=== PATIENT | male | born 1960 | race Caucasian/White ===

== ENCOUNTER 2017-05-24 08:25 | Day surgery (SDC) | payer OTHER, BC, SELFPAY | END 2017-05-24 11:05 | disposition home or self-care (01) | PROVIDERS: Visit Provider Anesthesiology | DX: M51.16 Intervertebral disc disorders with radiculopathy, lumbar region (principal); M43.22 Fusion of spine, cervical region | CPT/HCPCS: 62326; 80305; 95851 ==

== ENCOUNTER → 2017-05-29 | Outpatient (POV) | payer OTHER, BC, SELFPAY | PROVIDERS: Family Provider Nurse Practitioner Family; Visit Provider Surgery | DX: M51.36 Other intervertebral disc degeneration, lumbar region (principal); Z98.1 Arthrodesis status | CPT/HCPCS: 99201 ==

== ENCOUNTER → 2017-09-03 | Outpatient (CLI) | payer OTHER, SELFPAY | PROVIDERS: Visit Provider Anesthesiology | DX: Z01.818 Encounter for other preprocedural examination; M54.16 Radiculopathy, lumbar region | CPT/HCPCS: 36415; 80048; 85025 ==

== ENCOUNTER 2017-09-18 06:55 | Day surgery (SDC) | payer OTHER, SELFPAY | END 2017-09-18 11:18 | disposition home or self-care (01) | PROVIDERS: Family Provider Nurse Practitioner Family; Visit Provider Anesthesiology | DX: M51.16 Intervertebral disc disorders with radiculopathy, lumbar region; M51.36 Other intervertebral disc degeneration, lumbar region | CPT/HCPCS: 62350; 62362; 96365; C1755; C1772; J2704; J3370 ==

== ENCOUNTER → 2017-10-01 09:35 | Outpatient (POV) | payer OTHER, SELFPAY ==
[2017-10-01 10:04] VITALS: BP 170/100; PULSE 70; RESP 18; BMI 33.4
--- NOTE | 2017-10-01 10:20 | HMH.PMPROC ---
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 He had permanent placement of intrathecal pain pump 2 weeks ago. He was started at 0.1 mg per day of intrathecal Dilaudid. He is doing well with 80-90% relief of his pain symptoms. He has not been very active as of yet. We will initiate his PTC at 0.01 mg up to 4 times a day with a 6 hour lockout. I have also suggested that he continue wearing his back brace. He does have some urinary hesitancy. We will start him on Flomax 0.4 mg daily as needed to help with his urinary hesitancy. Procedure Details:: Informed consent was obtained and the risks and benefits of the procedure was explained to the patient. Patient was taken to the procedure room. Intrathecal pump was interrogated. Intrathecal Dilaudid infusion was continued at 0.1 mg per day with PTC initiated at 0.01 mg up to 4 times a day with a 6 hour lockout. Patient tolerated the procedure well with no complications. Plan and Disposition:: We will follow-up with this patient at his next pump refill. If he has any problems or questions he is to call me back in the pain clinic. We have also started him on Flomax 0.4 mg daily to help with his urinary hesitancy. We have given him a one-month prescription
== END ==
PROVIDERS: Family Provider Nurse Practitioner Family; Visit Provider Anesthesiology
DX: M54.16 Radiculopathy, lumbar region (principal)
CPT/HCPCS: 95991; 99212

== ENCOUNTER → 2017-10-28 11:23 | Outpatient (POV) | payer OTHER, SELFPAY ==
[2017-10-28 11:52] VITALS: BP 175/106; PULSE 74; RESP 20; TEMP 36.3; O2SAT 96; BMI 34.9
--- NOTE | 2017-10-28 12:02 | HMH.PMPROC ---
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 He is doing well with his intrathecal Dilaudid pain pump currently at 0.1 mg per day. Patient does give himself a bolus before going to bed. He does have some issues at night with increased pain at 2 to 3:00 in the morning when he has increasing pain in his back and down his left leg. He does get up and uses PTC which does give him relief. However, he would like to have an automatic bolus so he does not have to be woken up in the middle of the night with pain. We will adjust his programming to continue at 0.1 mg per day with automatic boluses of 0.01 mg at 7 PM and at 2 AM. Procedure Details:: Informed consent was obtained and the risk effects of the procedure was explained to the patient. The patient was taken to the procedure room. Intrathecal Dilaudid pump was interrogated and the infusion remained at 0.1 mg per day with automatic bolus of 0.01 mg at 7 PM and at 2 AM. PTC was disabled. The patient tolerated the procedure well with no complications. Plan and Disposition:: We will follow-up with him in 2 weeks and make further adjustments as needed.
== END ==
PROVIDERS: Visit Provider Anesthesiology
DX: M54.16 Radiculopathy, lumbar region (principal)
CPT/HCPCS: 95991

== ENCOUNTER → 2017-12-16 09:04 | Outpatient (POV) | payer OTHER, SELFPAY ==
[2017-12-16 09:17] VITALS: BP 177/117; PULSE 58; RESP 17; O2SAT 98; BMI 34.9
--- NOTE | 2017-12-16 09:27 | HMH.PMPROC ---
- Procedure Date: 12/16/17 Time: 09:27 Anesthesiologist:: Pacheco Boyle MD Complications:: None Pre-procedure Diagnosis:: Degenerative disc disease of lumbar spine multiple levels lumbar radiculopathy symptoms and postlaminectomy syndrome of the cervical spine with anterior cervical neck fusion Post-procedure Diagnosis:: Same Indications for Procedure:: This patient is a pleasant 56-year-old white male who we are treating for low back pain with lumbar radiculopathy symptoms and neck pain with previous anterior cervical neck fusion. He is doing well with his intrathecal Dilaudid pain pump currently at 0.12 mg per day. However he does still have some increased pain at night. He would like to increase his boluses at night. He currently gets boluses of 0.01 mg at 7 PM and at 2 AM. We will increase his to 0.02 mg at 7 PM and 2 AM to see if this gives him additional pain relief. We have disabled his PTC. Procedure Details:: Informed consent was obtained and the risk and benefits of the procedure was explained to the patient. Patient was taken to the procedure room. Pump was interrogated. Boluses were increased to 0.02 g at 7 PM and at 2 AM. Total daily dose dose is increased to 0.14 mg per day. Patient tolerated the procedure well with no complications. Plan and Disposition:: We will follow-up with him at his next pump refill. If he has any problems or questions he is to call me back in the pain clinic.
== END ==
PROVIDERS: Family Provider Nurse Practitioner Family; Visit Provider Anesthesiology
DX: M47.816 Spondylosis without myelopathy or radiculopathy, lumbar region (principal)
CPT/HCPCS: 62370

== ENCOUNTER → 2018-02-28 09:50 | Outpatient (POV) | payer OTHER, SELFPAY ==
[2018-02-28 10:00] VITALS: BP 146/86; PULSE 58; RESP 18; TEMP 37.1; O2SAT 98; BMI 34.4
--- NOTE | 2018-02-28 10:24 | HMH.PMPROC ---
- Procedure Date: 02/28/18 Time: 10:24 Anesthesiologist:: Pacheco Boyle MD Complications:: None Pre-procedure Diagnosis:: Degenerative disc disease of lumbar spine with lumbar radiculopathy symptoms Post-procedure Diagnosis:: Same Indications for Procedure:: This patient is a pleasant 57-year-old white male who we are treating for low back pain with lumbar radiculopathy symptoms. He is doing well with his current intrathecal Dilaudid infusion. He does have some increased pain with increased activity. We will make adjustments to his infusion today to give him better pain relief throughout the day when he is more active. He does have a normal gait. Motor strength of the lower extremities is 5/5. There is no gross sensory deficit. Procedure Details:: Procedure: Pain pump interrogation and adjustment Informed consent was obtained and the risk and benefits of the procedure was explained to the patient. Patient was taken to the procedure room. The pump was interrogated. Patient's bolus during the day was increased to 0.1 mg. This increased his total daily dose to 0.17 mg per day. Patient now gets a bolus of 0.02 mg at 7 PM, 0.03 mg from 7 PM to 2 AM, 0.02 mg at 2 AM, 0.1 mg from 2 AM to 7 PM with total daily dose of 0.17 mg per day. patient tolerated the procedure well with no complications. Plan and Disposition:: We will follow-up with this patient in 2 weeks. We will reevaluate his symptoms at that time.
== END ==
PROVIDERS: Family Provider Nurse Practitioner Family; PCP Nurse Practitioner Family; Visit Provider Anesthesiology
DX: M54.16 Radiculopathy, lumbar region (principal)
CPT/HCPCS: 62370

== ENCOUNTER → 2018-09-01 14:58 | Outpatient (POV) | payer OTHER, SELFPAY ==
[2018-09-01 15:29] VITALS: BP 180/99; PULSE 77; RESP 18; O2SAT 99; BMI 34.2
--- NOTE | 2018-09-01 15:49 | HMH.PMPROC ---
- Procedure Date: 09/01/18 Time: 15:30 Anesthesiologist:: Devora Villeda APRN Complications:: None Pre-procedure Diagnosis:: Degenerative disc disease lumbar spine with lumbar radiculopathy Post-procedure Diagnosis:: Same Indications for Procedure:: Patient is a pleasant 57-year-old white male who presents today for intrathecal pain pump adjustment. Patient is currently on a Dilaudid infusion of going at a total daily dose of 0.17 mg/day. Patient's been having worsening pain rating his pain a 7 out of 10 today. Patient has recent MRI however he did not bring the report with us he will be returning to our clinic with this. We will change him to a periodic flow today. He denies side effects to his medication. Physical Exam General: Alert and oriented x3, no acute distress, pleasant and cooperative, [on room air] Lungs: Resps E/U, Symmetrical chest expansion, Eyes: PERRL Musculoskeletal: Flexion and extension of lumbar spine somewhat guarded secondary to pain, deep tendon reflexes normal, strength in upper and lower extremities [5/5], [abnormal gait noted] Neurological: speech clear, automatic lathe operator equal, no gross sensory deficits Procedure Details:: Informed consent was obtained and the risk and benefits of the procedure were explained to the patient. The patient was taken to the procedure room where noninvasive monitoring was placed including noninvasive blood pressure cuff and pulse oximeter. Patient's pump was interrogated. The infusion rate was changed to 0.02 every 2 hours for total daily dose of 0.24 mg a day.. The patient tolerated the procedure well. Plan and Disposition:: I will see the patient back at his next intrathecal pain pump refill and reprogram. Patient's been instructed to call the office if he has any issues prior to his next appointment. Patient is going to come to our offering his MRI report at some time this week. This note was dictated using voice recognition software and may contain errors or omissions
== END ==
PROVIDERS: PCP Internal Medicine Adolescent Medicine; Visit Provider Clinical Nurse Specialist Family Health
DX: M54.16 Radiculopathy, lumbar region (principal)
CPT/HCPCS: 62368

== ENCOUNTER → 2018-10-23 07:10 | Outpatient (CLI) | payer BC, SELFPAY ==
--- NOTE | 2018-10-23 07:30 | NM_ITS ---
History and Indications: Hypertension, family history, chest pain, shortness of breath and fatigue Procedure: Patient received a 0.4 mg of intravenous Lexiscan, resting heart rate was 65 bpm resting blood pressure 156/110, with intravenous Lexiscan maximum heart rate achieved was 93 bpm which is less than 85% of the maximum predicted heart rate and a blood pressure was 137/82. With Lexiscan patient complained shortness of breath Electrocardiogram: Resting echocardiogram showed sinus rhythm, with Lexiscan less than 1.[address] segment depression noted from the baseline EKG. The EKG portion of the Lexiscan Myoview is nondiagnostic. Cardiac stress and resting SPECT images: Cardiac stress and resting SPECT images were obtained using technetium 99 Myoview 32.0 mCi at stress and 10.2 mCi at rest, gated SPECT further analysis of segmental wall motion and calculation of the ejection fraction also done. Cardiac stress and resting SPECT images show uniform myocardial activity without segmental perfusion abnormality, computer derived ejection fraction is 58% with no regional wall motion abnormality, right ventricle is normal size and contractility. Conclusion: 1. The EKG portion of the Lexiscan Myoview is nondiagnostic. 2. No scintigraphic evidence of reversible ischemia seen, computer derived ejection fraction is 58% with no regional wall motion abnormality, right ventricle is normal size and contractility. 3. Normal Lexiscan Myoview study.
--- NOTE | 2018-10-23 09:54 | HMH.ITSHM ---
Current Home Medications as stated by this patient Luisa Serna or patient care representative. []hctz
== END ==
PROVIDERS: PCP Internal Medicine Adolescent Medicine; Visit Provider Internal Medicine Adolescent Medicine
DX: R06.00 Dyspnea, unspecified (principal)
CPT/HCPCS: 78452; 93017; A9502; J2785

== ENCOUNTER → 2018-10-31 10:06 | Outpatient (CLI) | payer BC, SELFPAY ==
--- NOTE | 2018-10-31 10:20 | XR_ITS ---
XR chest 2V HISTORY: Short of breath ITS.REASON: SOB ORDERING PHYSICIAN: Yo Staples MD PATIENT AGE: 58 years COMPARISON: None FINDINGS: The cardiomediastinal silhouette and pulmonary vascularity are within normal limits. The lungs are clear without infiltrates, suspicious nodules, or pleural effusions. No acute bony abnormalities. There is a bone plate along the lower cervical spine anteriorly IMPRESSION: Negative chest, no acute finding
== END ==
PROVIDERS: PCP Internal Medicine Adolescent Medicine; Visit Provider Internal Medicine Adolescent Medicine
DX: R06.02 Shortness of breath (principal)
CPT/HCPCS: 71046

== ENCOUNTER → 2018-11-28 09:46 | Outpatient (CLI) | payer BC, SELFPAY ==
[2018-11-28 10:23] LABS: Basophils # 0.1 K/mm3 (0-0.2); Basophils % 1.5 % (0.1-2.0); Eosinophils # 0.2 K/mm3 (0.0-0.4); Eosinophils % 2.5 % (0.1-12.0); Hemoglobin 15.9 g/dL (14.1-18.0); Lymphocytes # 1.6 K/mm3 (0.7-4.5); Lymphocytes % 21.5 % (10-50); Mean Corpuscular HGB Conc 31.8 g/dL (31.8-35.4); Mean Corpuscular Hemoglobin 28.6 pg (27.0-31.2); Mean Corpuscular Volume 89.9 fl (80-94); Mean Platelet Volume 8.2 fl (7.4-10.4); Monocytes # 0.3 K/mm3 (0.1-1.0); Monocytes % 4.5 % (1.7-9.3); Neutrophils # 5.1 K/mm3 (1.8-7.8); Platelet Count 238 K/mm3 (142-424); Red Blood Count 5.55 M/mm3 (4.60-6.20); Red Cell Distribution Width 13.7 % (11.5-17.5); White Blood Count 7.2 K/mm3 (4.8-10.8)
[2018-11-28 11:27] LABS: Anion Gap 11.9 mEq/L (5-15); Blood Urea Nitrogen 22 mg/dL (7-18); Calcium 9.5 mg/dL (8.5-10.1); Carbon Dioxide 30 mmol/L (21.0-32.0); Chloride 99 mmol/L (98-107); Creatinine,Serum 1.27 mg/dL (0.70-1.30); Estimated Glomerular Filt Rate 59 ml/min (>60); Free Thyroxine Index 3.2 ug/dL (5.93-13.13); GFR (African American) 71 ML/MIN (>60); Glucose 105 mg/dL (74-106); Potassium 3.9 mmoL/L (3.5-5.1); Sodium 137 mmol/L (136-145); T4 (Thyroxine) 7.6 ug/dl (4.7-13.3); Thyroid Stimulating Hormone 1.25 uIU/ml (0.358-3.740); Triiodothryronine (T3) Uptake 42 % (31-39)
[2018-12-01 13:23] LABS: Thyroid Peroxidase Antibodies 8 IU/mL (0-34)
== END ==
PROVIDERS: Visit Provider Internal Medicine Adolescent Medicine
DX: R53.83 Other fatigue (principal); R53.81 Other malaise; Z83.49 Family history of other endocrine, nutritional and metabolic diseases
CPT/HCPCS: 36415; 80048; 84436; 84443; 84479; 85025; 86376

== ENCOUNTER 2019-03-03 13:41 | Day surgery (SDC) | payer OTHER, BC, SELFPAY ==
[2019-03-03 13:43] VITALS: BP 140/93; PULSE 68; RESP 18; O2SAT 97; BMI 34.1
[2019-03-03 13:52] VITALS: BP 140/95; PULSE 68; RESP 18
[2019-03-03 13:55] VITALS: BP 140/93; PULSE 68; RESP 18; O2SAT 97; BMI 34.1
[2019-03-03 13:56] VITALS: BP 142/98; PULSE 68; RESP 18; O2SAT 98
--- NOTE | 2019-03-03 14:01 | HMH.PMPROC ---
- Procedure Date: 03/03/19 Time: 14:01 Anesthesiologist:: Devora Villeda APRN Complications:: None Pre-procedure Diagnosis:: Degenerative disc disease lumbar spine with lumbar radiculopathy Post-procedure Diagnosis:: Same Indications for Procedure:: Patient is a pleasant 58-year-old white male who presents today for intrathecal pain pump refill and reprogram. Patient is having increased pain. Patient is currently on a Dilaudid dose of 0.03 mg every 2 hours. Patient is having increased pain rating his pain 8 out of 10. Patient is having a consultation with a neurosurgeon. Patient would like a slight increase today T. He denies side effects to his medication. [facility] #[id number] reviewed and appropriate. Physical Exam General: Alert and oriented x3, no acute distress, pleasant and cooperative, [on room air] Lungs: Resps E/U, Symmetrical chest expansion, Eyes: PERRL Musculoskeletal: Flexion and extension of lumbar spine somewhat guarded secondary to pain, deep tendon reflexes normal, strength in upper and lower extremities [5/5], [abnormal gait noted] Neurological: speech clear, endoscopy technican equal, no gross sensory deficits Procedure Details:: Informed consent was obtained and the risk and benefits of the procedure were explained to the patient. The patient was taken to the procedure room where noninvasive monitoring was placed including noninvasive blood pressure cuff and pulse oximeter. Patient's pump was interrogated. The area over the pump was cleansed with chlorhexidine as a cleansing solution. In sterile fashion the pump was accessed with a 22-gauge needle. Approximately 4 mL's were removed of the pump solution and discarded appropriately. The pump was then refilled with 20 mL's of Dilaudid 2 mg/mL. The needle was withdrawn and a bandage was placed over the puncture site. The infusion rate was reprogrammed to 0.042 mg every 2 hours. The patient tolerated the procedure well. Plan and Disposition:: I will see the patient back his next intrathecal pain pump refill and reprogram he is been instructed to call the office if he has any issues prior to his next appointment. We discussed that his surgeon will take care of his acute pain needs and we will continue him on his intrathecal therapies. Dr. Boyle has reviewed this note and agrees with this plan of care. This note was dictated using voice recognition software and may contain errors or omissions
[2019-03-03 14:18] VITALS: BP 129/90; PULSE 65; RESP 18; O2SAT 97
== END 2019-03-03 14:19 | disposition home or self-care (01) ==
LOC: SC.PAINP 13:42
PROVIDERS: PCP Internal Medicine Adolescent Medicine; Visit Provider Clinical Nurse Specialist Family Health
DX: M54.16 Radiculopathy, lumbar region (principal)
CPT/HCPCS: 62370

== ENCOUNTER → 2019-03-11 09:32 | Outpatient (CLI) | payer BC, SELFPAY ==
[2019-03-11 10:19] LABS: Basophils # 0.1 K/mm3 (0-0.2); Basophils % 1.2 % (0.1-2.0); Eosinophils # 0.2 K/mm3 (0.0-0.4); Eosinophils % 2.7 % (0.1-12.0); Hematocrit 45.9 % (42.0-52.0); Hemoglobin 15.2 g/dL (14.1-18.0); Lymphocytes # 1.5 K/mm3 (0.7-4.5); Lymphocytes % 22.8 % (10-50); Mean Corpuscular HGB Conc 33.1 g/dL (31.8-35.4); Mean Corpuscular Hemoglobin 28.6 pg (27.0-31.2); Mean Corpuscular Volume 86.3 fl (80-94); Mean Platelet Volume 7.4 fl (7.4-10.4); Monocytes # 0.5 K/mm3 (0.1-1.0); Monocytes % 7.2 % (1.7-9.3); Neutrophils # 4.3 K/mm3 (1.8-7.8); Neutrophils % 66.1 % (37.0-80.0); Platelet Count 247 K/mm3 (142-424); Red Blood Count 5.32 M/mm3 (4.60-6.20); Red Cell Distribution Width 13.5 % (11.5-17.5); White Blood Count 6.6 K/mm3 (4.8-10.8)
[2019-03-11 11:12] LABS: Alanine Aminotransferase 49 U/L (12-78); Albumin Level 3.8 gm/dL (3.4-5.0); Albumin/Globulin Ratio 1.1 (1.1-1.8); Alkaline Phosphatase 104 U/L (46-116); Anion Gap 14.2 mEq/L (5-15); Aspartate Amino Transferase 23 U/L (15-37); Bilirubin,Total 0.7 mg/dL (0.2-1.0); Blood Urea Nitrogen 19 mg/dL (7-18); Calcium 9.5 mg/dL (8.5-10.1); Carbon Dioxide 27 mmol/L (21.0-32.0); Chloride 100 mmol/L (98-107); Cholesterol 238 mg/dL (140-200); Creatinine,Serum 1.11 mg/dL (0.70-1.30); Estimated Glomerular Filt Rate 69 ml/min (>60); GFR (African American) 83 ML/MIN (>60); Globulin 3.6 gm/dl (1.3-3.2); Glucose 103 mg/dL (74-106); HDL Cholesterol 48 mg/dL (27-67); LDL Cholesterol 177 mg/dL (0-130); Potassium 4.2 mmoL/L (3.5-5.1); Sodium 137 mmol/L (136-145); Total Protein,Serum 7.4 gm/dL (6.4-8.2); Triglycerides 65 mg/dL (30-200); VLDL Cholesterol 13 mg/dL (0-40)
[2019-03-11 11:14] LABS: Prostate Specific Ag, Diagnost < 0.05 ng/mL (0.0-4.0)
== END ==
PROVIDERS: Visit Provider Internal Medicine Adolescent Medicine
DX: Z86.39 Personal history of other endocrine, nutritional and metabolic disease (principal); Z85.46 Personal history of malignant neoplasm of prostate
CPT/HCPCS: 36415; 80053; 80061; 84153; 85025

== ENCOUNTER → 2019-05-05 16:03 | Outpatient (CLI) | payer BC, OTHER, SELFPAY ==
[2019-05-05 16:59] LABS: Amphetamine/Metha Screen,Urine Negative ng/mL (<1000); Barbiturates Screen,Urine Negative ng/mL (<200); Benzodiazepines Screen,Urine Negative ng/mL (<200); Cannabinoid Screen,Urine Negative ng/mL (<50); Cocaine Screen,Urine Negative ng/mL (<300); Methadone Screen,Urine Negative ng/mL (<300); Opiate Screen,Urine Negative ng/mL (<300); Phencyclidine Screen,Urine Negative ng/mL (<25)
[2019-05-10 19:15] LABS: Codeine Negative (Cutoff=100); Hydrocodone Negative (Cutoff=100); Hydromorphone Positive (.); Morphine Negative (Cutoff=100)
[2019-05-11 10:33] LABS: Opiates Positive (.)
== END ==
PROVIDERS: Visit Provider Anesthesiology
DX: Z79.899 Other long term (current) drug therapy (principal)
CPT/HCPCS: 80305; 80361; 80365; G0480

== ENCOUNTER → 2019-06-19 09:47 | Outpatient (CLI) | payer BC, SELFPAY ==
[2019-06-19 11:13] LABS: Alanine Aminotransferase 61 U/L (12-78); Albumin Level 3.7 gm/dL (3.4-5.0); Albumin/Globulin Ratio 1.1 (1.1-1.8); Alkaline Phosphatase 87 U/L (46-116); Anion Gap 13.5 mEq/L (5-15); Aspartate Amino Transferase 30 U/L (15-37); Bilirubin,Total 0.5 mg/dL (0.2-1.0); Blood Urea Nitrogen 15 mg/dL (7-18); Calcium 9.2 mg/dL (8.5-10.1); Carbon Dioxide 28 mmol/L (21.0-32.0); Chloride 101 mmol/L (98-107); Chol/HDL Ratio 3.4 (1-3.5); Cholesterol 161 mg/dL (140-200); Creatinine,Serum 1.12 mg/dL (0.70-1.30); Estimated Glomerular Filt Rate 68 ml/min (>60); GFR (African American) 82 ML/MIN (>60); Globulin 3.5 gm/dl (1.3-3.2); Glucose 95 mg/dL (74-106); HDL Cholesterol 48 mg/dL (27-67); LDL Cholesterol 102 mg/dL (0-130); Potassium 4.5 mmoL/L (3.5-5.1); Sodium 138 mmol/L (136-145); Total Protein,Serum 7.2 gm/dL (6.4-8.2); Triglycerides 54 mg/dL (30-200); VLDL Cholesterol 11 mg/dL (0-40)
== END ==
PROVIDERS: Visit Provider Internal Medicine Adolescent Medicine
DX: Z86.39 Personal history of other endocrine, nutritional and metabolic disease (principal)
CPT/HCPCS: 36415; 80053; 80061

== ENCOUNTER → 2019-12-21 13:45 | Outpatient (POV) | payer OTHER, SELFPAY ==
[2019-12-21 14:04] VITALS: BP 171/98; PULSE 77; RESP 18; O2SAT 98; BMI 30.4
--- NOTE | 2019-12-21 14:08 | HMH.PMPROC ---
- Procedure Date: 12/21/19 Time: 14:08 Anesthesiologist:: Devora Villeda APRN Complications:: None Pre-procedure Diagnosis:: Degenerative disc disease lumbar spine with lumbar postlaminectomy syndrome Post-procedure Diagnosis:: Same Indications for Procedure:: Patient is a pleasant 59-year-old white male who presents today for intrathecal pain pump adjustment. Patient is having increased pain. Our original plan was to wean him down however he has having new pain. Patient states that he does well with bracing. We discussed potentially needing to tighten and increase his strength in his core. He is healing from surgery. He rates his pain today a 5 out of 10. Physical Exam General: Alert and oriented x3, no acute distress, pleasant and cooperative, [on room air] Lungs: Resps E/U, Symmetrical chest expansion, Eyes: PERRL Musculoskeletal: Flexion and extension of lumbar spine somewhat guarded secondary to pain, deep tendon reflexes normal, strength in upper and lower extremities [5/5], slightly antalgic gait noted Neurological: speech clear, recruiter manager equal, no gross sensory deficits Procedure Details:: Informed consent was obtained and the risk and benefits of the procedure were explained to the patient. The patient was taken to the procedure room where noninvasive monitoring was placed including noninvasive blood pressure cuff and pulse oximeter. Patient's pump was interrogated and reprogrammed. The infusion rate was increased to 0.08 mg of Dilaudid every 2 hours for total daily dose of 0.96 mg/day.. The patient tolerated the procedure well. Plan and Disposition:: Send the patient to physical therapy. I will see him back at his next intrathecal pain pump refill and reprogram. He is been instructed to call the office if he has any issues prior to his next appointment. Dr. Boyle has reviewed this note and agrees with this plan of care. This note was dictated using voice recognition software and may contain errors or omissions
== END ==
PROVIDERS: PCP Internal Medicine Adolescent Medicine; Visit Provider Clinical Nurse Specialist Family Health
DX: M51.36 Other intervertebral disc degeneration, lumbar region (principal); M96.1 Postlaminectomy syndrome, not elsewhere classified
CPT/HCPCS: 62368

== ENCOUNTER 2020-03-07 14:00 | Outpatient (RCR) | payer OTHER, SELFPAY ==
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
== END 2020-03-07 14:05 | disposition home or self-care (01) ==
LOC: PT 14:00
PROVIDERS: Visit Provider Anesthesiology
DX: M54.5 Low back pain (principal)
CPT/HCPCS: 97010; 97014; 97110; 97163; 97535; 97760; G0283

== ENCOUNTER 2020-03-25 14:51 | Day surgery (SDC) | payer OTHER, SELFPAY ==
[2020-03-25 15:46] VITALS: BP 160/101; PULSE 67; RESP 20; TEMP 37; O2SAT 96; BMI 31.4
[2020-03-25 15:59] VITALS: BP 135/89; PULSE 70; RESP 18; O2SAT 98
[2020-03-25 16:05] VITALS: BP 179/85; PULSE 68; RESP 18; O2SAT 98
--- NOTE | 2020-03-25 16:11 | HMH.PMPROC ---
- Procedure Date: 03/25/20 Time: 16:11 Anesthesiologist:: Pacheco Boyle MD Complications:: None Pre-procedure Diagnosis:: Degenerative disc disease of lumbar spine with lumbar radiculopathy symptoms and postlaminectomy syndrome of lumbar spine Post-procedure Diagnosis:: Same Indications for Procedure:: This patient is a pleasant 59-year-old white male who we are treating for low back pain with lumbar radiculopathy symptoms. He does have an intrathecal Dilaudid pain pump in place. He is currently going 0.96 mg/day. He did previously have surgery. He is doing very well with his pump at this current dose. His Fazal and urine drug screen are all appropriate. We will refill his intrathecal Dilaudid pain pump today and continue him at 0.96 mg/day. He does have an antalgic gait. Motor strength of lower extremities is 5/5. There is no gross sensory deficit. Procedure Details:: Informed consent was obtained and the risks and benefits of the procedure was explained to the patient. The patient was taken to the procedure room. The pump was interrogated. The area over the pump was prepped using ChloraPrep. The pump was accessed with a 22-gauge needle. Approximately 15.5 mL's of the intrathecal solution was withdrawn and discarded. The pump was then refilled with 20 mL's of intrathecal Dilaudid 10 mg/mL. The pump was interrogated and the infusion was continued at 0.96 mg/day. The patient tolerated the procedure well with no complication. Plan and Disposition:: We will follow-up with him his next pump refill. If he has any problems or questions he is to call us back in the pain clinic.
[2020-03-25 16:14] VITALS: BP 156/104; PULSE 59; RESP 18; O2SAT 96
== END 2020-03-25 16:14 | disposition home or self-care (01) ==
LOC: SC.PAINP 14:53
PROVIDERS: PCP Internal Medicine Adolescent Medicine; Visit Provider Anesthesiology
DX: M51.16 Intervertebral disc disorders with radiculopathy, lumbar region (principal); M96.1 Postlaminectomy syndrome, not elsewhere classified; I10 Essential (primary) hypertension; E78.5 Hyperlipidemia, unspecified; Z86.73 Personal history of transient ischemic attack (TIA), and cerebral infarction without residual deficits; Z85.9 Personal history of malignant neoplasm, unspecified; Z90.49 Acquired absence of other specified parts of digestive tract; Z87.39 Personal history of other diseases of the musculoskeletal system and connective tissue; Z88.6 Allergy status to analgesic agent; Z88.1 Allergy status to other antibiotic agents; Z88.0 Allergy status to penicillin; Z79.899 Other long term (current) drug therapy
CPT/HCPCS: 95991

== ENCOUNTER → 2020-06-27 13:12 | Outpatient (CLI) | payer BC, SELFPAY ==
[2020-06-27 13:58] LABS: Basophils # 0.1 K/mm3 (0-0.2); Basophils % 0.8 % (0.1-2.0); Eosinophils # 0.2 K/mm3 (0.0-0.4); Eosinophils % 2.1 % (0.1-12.0); Hematocrit 47.8 % (42.0-52.0); Hemoglobin 15.5 g/dL (14.1-18.0); Lymphocytes # 1.9 K/mm3 (0.7-4.5); Lymphocytes % 16.7 % (10-50); Mean Corpuscular HGB Conc 32.5 g/dL (31.8-35.4); Mean Corpuscular Hemoglobin 29.4 pg (27.0-31.2); Mean Corpuscular Volume 90.4 fl (80-94); Mean Platelet Volume 7.9 fl (7.4-10.4); Monocytes # 0.5 K/mm3 (0.1-1.0); Monocytes % 4.4 % (1.7-9.3); Neutrophils # 8.6 K/mm3 (1.8-7.8); Neutrophils % 76.1 % (37.0-80.0); Platelet Count 246 K/mm3 (142-424); Red Blood Count 5.29 M/mm3 (4.60-6.20); Red Cell Distribution Width 13.7 % (11.5-17.5); White Blood Count 11.3 K/mm3 (4.8-10.8)
[2020-06-27 14:22] LABS: Chloride 100 mmol/L (98-107); Potassium 4.8 mmoL/L (3.5-5.1); Sodium 139 mmol/L (136-145)
[2020-06-27 14:24] LABS: Blood Urea Nitrogen 19 mg/dl (9-20); Estimated Glomerular Filt Rate 77 ml/min (>60); GFR (African American) 93 ML/MIN (>60)
[2020-06-27 14:25] LABS: Alanine Aminotransferase 79 U/L (12-78); Albumin Level 4.7 g/dl (3.5-5.0); Albumin/Globulin Ratio 1.4 (1.1-1.8); Alkaline Phosphatase 116 U/L (38-126); Anion Gap 16.8 mEq/L (5-15); Aspartate Amino Transferase 48 U/L (17-59); Bilirubin,Total 0.9 mg/dl (0.2-1.3); Calcium 10.1 mg/dl (8.4-10.2); Carbon Dioxide 27 mmol/L (22.0-30.0); Chol/HDL Ratio 3.7 (1-3.5); Cholesterol 230 mg/dl (140-200); Globulin 3.3 g/dL (1.3-3.2); Glucose 103 mg/dl (74-100); HDL Cholesterol 63 mg/dl (40-60); Triglycerides 93 mg/dl (30-150); VLDL Cholesterol 19 mg/dL (0-40)
[2020-06-27 14:35] LABS: Free T4 (Free Thyroxine) 1.37 ng/dl (0.78-2.19)
[2020-06-27 14:36] LABS: Direct LDL Cholesterol 151.65 mg/dL (100-129)
[2020-06-27 14:44] LABS: 25-OH Vitamin D, Total 45.6 ng/mL (30-100)
[2020-06-27 14:50] LABS: Thyroid Stimulating Hormone 1.28 uIU/mL (0.465-4.68)
[2020-06-27 17:28] LABS: Vitamin B12 383 pg/mL (239-931)
== END ==
PROVIDERS: Visit Provider Internal Medicine Adolescent Medicine
DX: R53.81 Other malaise (principal); E78.5 Hyperlipidemia, unspecified; E55.9 Vitamin D deficiency, unspecified; I10 Essential (primary) hypertension
CPT/HCPCS: 36415; 80053; 80061; 82306; 82607; 84439; 84443; 85025

== ENCOUNTER → 2020-07-02 10:23 | Outpatient (CLI) | payer BC, SELFPAY ==
[2020-07-02 12:56] LABS: Coronavirus 19 IgG Antibody Negative (Negative); Coronavirus 19 IgM Antibody Negative (Negative)
== END ==
PROVIDERS: Visit Provider Internal Medicine Gastroenterology
DX: Z01.89 Encounter for other specified special examinations (principal); Z12.11 Encounter for screening for malignant neoplasm of colon
CPT/HCPCS: 36415; 86328

== ENCOUNTER 2020-07-04 10:23 | Day surgery (SDC) | payer BC, SELFPAY ==
[2020-06-29 10:22] VITALS: BMI 31.3
[2020-07-04 11:05] VITALS: BP 167/104; PULSE 74; RESP 18; TEMP 36.1; O2SAT 97
[2020-07-04 12:11] VITALS: O2SAT 97
--- NOTE | 2020-07-04 12:40 | HMH.PROC ---
[facility] Procedure Note Procedure Note:: Colonoscopy Procedure Report: Colonoscopy Endoscopist: Hector Francois II, MD Referring physician: Yo Staples M.D. Date of Procedure: July 04, 2020 Equipment: Olympus 180 variable stiffness pediatric colonoscope Sedation: MAC sedation Indication: Mr. Serna is a 59-year-old gentleman who is here for screening/surveillance colonoscopy. He does state that he had a colonoscopy in 2002 and had colon polyps removed. He came back 1 year later and the colonoscopy was normal. His next (and last) colonoscopy in 2010 revealed normal colonoscopy. The patient reports no abdominal pain, weight loss, change in his bowel habits or rectal bleeding. He reports no family history of colon cancer. His recent CBC showed hemoglobin 15.5 and hematocrit 47.8. The patient does have a former history of prostate cancer with prostatectomy. Procedure: Prior to the procedure, a history and physical exam was performed, and patient's medications and allergies were reviewed. The risks, benefits and alternatives of the sedation and procedure were discussed with the patient. All questions were answered and informed consent was obtained. The patient was brought to the procedure room. Patient identification and proposed procedure were verified by the physician and the nurse. The patient was placed in a left lateral decubitus position and the scope was passed under direct vision. Throughout the procedure, the patient's blood pressure, pulse, and oxygen saturations were monitored continuously. The colonoscopy was accomplished without difficulty. The patient tolerated the procedure well. Findings: On digital rectal examination there was normal rectal tone. There were no external hemorrhoids. There was no palpable prostate. The colonoscope was introduced through the anal canal to the rectum and advanced to the cecum. The ileocecal valve and appendiceal orifice were identified. The scope was advanced a short distance into the ileum which appeared grossly normal. The scope was then withdrawn into the colon. The cecum, ascending and transverse colon and mucosa were grossly normal. There were scattered diverticuli throughout the descending and sigmoid colon (LEFT colon). The rectum itself was normal. Upon retroflexion within the rectum there were grade 1-2 internal hemorrhoids. The preparation was excellent throughout with [place] Preparation Score of 9. The cecal time was 10 minutes. Impression: 1. Left-sided diverticulosis 2. Grade 1 internal hemorrhoids Plan: The patient will not require screening/surveillance colonoscopy again for 10 years by ACS guidelines. I would encourage bulk fiber supplementation on a long-term daily maintenance basis.
[2020-07-04 12:45] VITALS: BP 176/95; PULSE 83; RESP 18; TEMP 36.7; O2SAT 92
[2020-07-04 12:55] VITALS: BP 158/100; PULSE 85; RESP 18; O2SAT 98
[2020-07-04 13:05] VITALS: BP 145/108; PULSE 63; RESP 18; O2SAT 98
[2020-07-04 13:25] VITALS: BP 160/98; PULSE 56; RESP 18; O2SAT 99
== END 2020-07-04 13:25 | disposition home or self-care (01) ==
LOC: OUTP 10:25
PROVIDERS: PCP Internal Medicine Adolescent Medicine; Visit Provider Internal Medicine Gastroenterology
PROC: 0DJD8ZZ Inspection of Lower Intestinal Tract, Via Natural or Artificial Opening Endoscopic (ICD-10-PCS; CPT 45378; principal; 2020-07-04 11:30)
DX: Z12.11 Encounter for screening for malignant neoplasm of colon (principal); K57.30 Diverticulosis of large intestine without perforation or abscess without bleeding; K64.0 First degree hemorrhoids; Z86.010 Personal history of colon polyps; Z85.46 Personal history of malignant neoplasm of prostate; Z90.79 Acquired absence of other genital organ(s); I10 Essential (primary) hypertension; G45.9 Transient cerebral ischemic attack, unspecified; Z87.39 Personal history of other diseases of the musculoskeletal system and connective tissue; Z79.899 Other long term (current) drug therapy; Z88.0 Allergy status to penicillin; Z88.1 Allergy status to other antibiotic agents
CPT/HCPCS: 45378

== ENCOUNTER 2020-09-05 13:15 | Day surgery (SDC) | payer OTHER, SELFPAY ==
[2020-09-05 13:16] VITALS: BP 199/123; PULSE 78; RESP 18; TEMP 36.7; O2SAT 98; BMI 38.0
--- NOTE | 2020-09-05 13:59 | P.PCN_ITS ---
- Procedure Date: 09/05/20 Time: 14:04 Anesthesiologist:: Devora Villeda APRN Complications:: None Pre-procedure Diagnosis:: Degenerative disc disease lumbar spine lumbar radiculopathy symptoms and postlaminectomy syndrome lumbar spine Post-procedure Diagnosis:: Same Indications for Procedure:: Patient is a pleasant 59-year-old white male who presents today for intrathecal pain pump refill and reprogram. Patient currently has a Dilaudid pain pump in place he is currently on 0.96 mg/day. Patient rates his pain today 2 out of 10 in his back and 8 out of 10 in his legs he is can be given a one-time bolus of 0.1 mg of Dilaudid to see if this helps with his legs. If it does we will switch him to periodic flow. Patient had a decrease in his pain from an 8/10 6 after his bolus. Patient's Fazal #[id number] reviewed and appropriate. Physical Exam General: Alert and oriented x3, no acute distress, pleasant and cooperative, [on room air] Lungs: Resps E/U, Symmetrical chest expansion, Eyes: PERRL Musculoskeletal: Flexion and extension of lumbar spine somewhat guarded secondary to pain, deep tendon reflexes normal, strength in upper and lower extremities [5/5], antalgic gait noted Neurological: speech clear, vp hr diversity equal, no gross sensory deficits Procedure Details:: Informed consent was obtained and the risk and benefits of the procedure were explained to the patient. The patient was taken to the procedure room where noninvasive monitoring was placed including noninvasive blood pressure cuff and pulse oximeter. Patient's pump was interrogated. The area over the pump was cleansed with chlorhexidine as a cleansing solution. In sterile fashion the pump was accessed with a 22-gauge needle. Approximately 4.5 mL's were removed of the pump solution and discarded appropriately. The pump was then refilled with 20 mL's of Dilaudid 10 mg/mL. The needle was withdrawn and a bandage was placed over the puncture site. The infusion rate was reprogrammed to reprogrammed to a periodic flow of 0.1 mg every 2 hours for total daily dose of 1.2 mg/day. The patient tolerated the procedure well. Plan and Disposition:: We will see the patient back at his next intrathecal pain pump refill and reprogram he has been instructed to call the office if he has any issues prior to his next appointment. Dr. Boyle has reviewed this note and agrees with this plan of care. This note was dictated using voice recognition software and may contain errors or omissions
[2020-09-05 14:01] VITALS: BP 185/79; PULSE 79; RESP 18
[2020-09-05 14:02] VITALS: BP 185/88; PULSE 75; RESP 18; O2SAT 98
[2020-09-05 14:32] VITALS: BP 182/101; PULSE 71; RESP 18; O2SAT 98
== END 2020-09-05 14:33 | disposition home or self-care (01) ==
LOC: SC.PAINP 13:16
PROVIDERS: PCP Internal Medicine Adolescent Medicine; Visit Provider Clinical Nurse Specialist Family Health
DX: M96.1 Postlaminectomy syndrome, not elsewhere classified (principal); Z88.0 Allergy status to penicillin; Z88.1 Allergy status to other antibiotic agents; I10 Essential (primary) hypertension; Z79.899 Other long term (current) drug therapy
CPT/HCPCS: 62370

== ENCOUNTER → 2020-12-08 08:30 | Outpatient (POV) | payer BC, SELFPAY ==
[2020-12-08 08:47] VITALS: BP 182/87; PULSE 79; RESP 18; O2SAT 98; BMI 32.2
--- NOTE | 2020-12-08 08:51 | HMH.PMPROC ---
- Procedure Date: 12/08/20 Time: 08:52 Anesthesiologist:: Devora Villeda APRN Complications:: None Pre-procedure Diagnosis:: Degenerative disc disease lumbar spine lumbar radiculopathy symptoms postlaminectomy syndrome lumbar spine Post-procedure Diagnosis:: Same Indications for Procedure:: Patient is a pleasant 60-year-old white male who presents today for intrathecal pain pump reprogram he currently rates his pain today 6 out of 10. He denies side effects to his medication. He is on a periodic flow of 0.1 mg every 2 hours of Dilaudid. Overall doing well however increased pain due to increased activity. [facility] #[id number] reviewed and appropriate. Drug screens have been appropriate. Procedure Details:: Informed consent was obtained and the risk and benefits of the procedure were explained to the patient. The patient was taken to the procedure room where noninvasive monitoring was placed including noninvasive blood pressure cuff and pulse oximeter. Patient's pump was interrogated and reprogrammed. The infusion rate was increased to 0.12 mg of Dilaudid every 2 hours for total daily dose of 1.44 mg/day. The patient tolerated the procedure well. Plan and Disposition:: We will see the patient back at his next intrathecal pain pump refill and reprogram he has been instructed to call the office if he has any issues prior to his next appointment. Dr. Boyle has reviewed this note and agrees with this plan of care. This note was dictated using voice recognition software and may contain errors or omissions
== END ==
PROVIDERS: Visit Provider Clinical Nurse Specialist Family Health
DX: M51.16 Intervertebral disc disorders with radiculopathy, lumbar region (principal); M96.1 Postlaminectomy syndrome, not elsewhere classified
CPT/HCPCS: 62368

== ENCOUNTER 2021-01-02 13:50 | Day surgery (SDC) | payer OTHER, BC, SELFPAY ==
[2021-01-02 14:02] VITALS: BP 157/75; PULSE 71; RESP 18; TEMP 36.6; O2SAT 98; BMI 31.9
[2021-01-02 14:21] VITALS: BP 146/98; PULSE 68; RESP 18
[2021-01-02 14:28] VITALS: BP 147/88; PULSE 84; RESP 18; O2SAT 97
--- NOTE | 2021-01-02 14:29 | HMH.PMPROC ---
- Procedure Date: 01/02/21 Time: 14:29 Anesthesiologist:: Devora Villeda APRN Complications:: None Pre-procedure Diagnosis:: Degenerative disc disease lumbar spine lumbar radiculopathy symptoms, back pain, postlaminectomy syndrome Post-procedure Diagnosis:: Same Indications for Procedure:: Patient is a very pleasant 60-year-old white male who presents today for intrathecal pain pump refill and reprogram. He currently rates his pain today 4 out of 10 denies side effects to the medication he would like a slight increase. Patient is currently on an periodic flow of Dilaudid 0.12 mg every 2 hours [facility] #[id number] reviewed and appropriate. He denies any side effects. Procedure Details:: Informed consent was obtained and the risk and benefits of the procedure were explained to the patient. The patient was taken to the procedure room where noninvasive monitoring was placed including noninvasive blood pressure cuff and pulse oximeter. Patient's pump was interrogated. The area over the pump was cleansed with chlorhexidine as a cleansing solution. In sterile fashion the pump was accessed with a 22-gauge needle. Approximately 5.5 mL's were removed of the pump solution and discarded appropriately. The pump was then refilled with 20 mL's of 20 mL of Dilaudid 10 mg/mL. The needle was withdrawn and a bandage was placed over the puncture site. The infusion rate was reprogrammed to 0.14 mg every 2 hours. The patient tolerated the procedure well. Plan and Disposition:: We will follow up with the patient in the next intrathecal pain pump refill and reprogram he has been instructed to call the office if he has any issues prior to his next appointment. He is having knee surgery. I discussed with him that he is allowed to take prescribed narcotic medication if needed. Dr. Boyle has reviewed this note and agrees with this plan of care. This note was dictated using voice recognition software and may contain errors or omissions
[2021-01-02 14:32] VITALS: BP 148/91; PULSE 74; RESP 18; O2SAT 98
== END 2021-01-02 14:33 | disposition home or self-care (01) ==
LOC: SC.PAINP 13:52
PROVIDERS: PCP Internal Medicine Adolescent Medicine; Visit Provider Clinical Nurse Specialist Family Health
DX: M51.16 Intervertebral disc disorders with radiculopathy, lumbar region (principal); M96.1 Postlaminectomy syndrome, not elsewhere classified; Z45.1 Encounter for adjustment and management of infusion pump; I10 Essential (primary) hypertension; E78.5 Hyperlipidemia, unspecified; M19.90 Unspecified osteoarthritis, unspecified site; Z86.73 Personal history of transient ischemic attack (TIA), and cerebral infarction without residual deficits; Z88.0 Allergy status to penicillin; Z88.1 Allergy status to other antibiotic agents; Z88.6 Allergy status to analgesic agent
CPT/HCPCS: 62370

== ENCOUNTER → 2021-03-27 15:00 | Outpatient (CLI) | payer BC, SELFPAY ==
[2021-03-27 15:34] LABS: Basophils # 0.1 K/mm3 (0-0.2); Eosinophils # 0.2 K/mm3 (0.0-0.4); Eosinophils % 2.7 % (0.1-12.0); Hematocrit 40.7 % (42.0-52.0); Hemoglobin 13.4 g/dL (14.1-18.0); Lymphocytes # 1.5 K/mm3 (0.7-4.5); Lymphocytes % 20.3 % (10-50); Mean Corpuscular Hemoglobin 28.4 pg (27.0-31.2); Mean Corpuscular Volume 86.1 fl (80-94); Mean Platelet Volume 8.1 fl (7.4-10.4); Monocytes # 0.4 K/mm3 (0.1-1.0); Monocytes % 5.6 % (1.7-9.3); Neutrophils # 5.3 K/mm3 (1.8-7.8); Neutrophils % 70.5 % (37.0-80.0); Platelet Count 231 K/mm3 (142-424); Red Blood Count 4.73 M/mm3 (4.60-6.20); Red Cell Distribution Width 13.8 % (11.5-17.5); White Blood Count 7.5 K/mm3 (4.8-10.8)
[2021-03-27 16:59] LABS: Alanine Aminotransferase 22 U/L (12-78); Albumin Level 4.4 g/dl (3.5-5.0); Albumin/Globulin Ratio 1.4 (1.1-1.8); Alkaline Phosphatase 103 U/L (38-126); Anion Gap 13.6 mEq/L (5-15); Aspartate Amino Transferase 29 U/L (17-59); Bilirubin,Total 0.6 mg/dl (0.2-1.3); Blood Urea Nitrogen 17 mg/dl (9-20); Calcium 9.1 mg/dl (8.4-10.2); Carbon Dioxide 25 mmol/L (22.0-30.0); Chloride 105 mmol/L (98-107); Chol/HDL Ratio 5.7 (1-3.5); Cholesterol 246 mg/dl (140-200); Estimated Glomerular Filt Rate 57 ml/min (>60); GFR (African American) 69 ML/MIN (>60); Globulin 3.1 g/dL (1.3-3.2); Glucose 98 mg/dl (74-100); HDL Cholesterol 43 mg/dl (40-60); Potassium 4.6 mmoL/L (3.5-5.1); Sodium 139 mmol/L (136-145); Total Protein,Serum 7.5 g/dl (6.3-8.2); Triglycerides 153 mg/dl (30-150); VLDL Cholesterol 31 mg/dL (0-40)
[2021-03-27 17:30] LABS: Thyroid Stimulating Hormone 1.04 uIU/mL (0.465-4.68)
[2021-03-27 17:48] LABS: Vitamin B12 412 pg/mL (239-931)
== END ==
LOC: LAB 15:02
PROVIDERS: Visit Provider Internal Medicine Adolescent Medicine
DX: R53.81 Other malaise (principal); R53.83 Other fatigue; Z86.39 Personal history of other endocrine, nutritional and metabolic disease; Z85.46 Personal history of malignant neoplasm of prostate
CPT/HCPCS: 36415; 80053; 80061; 82607; 84443; 85025

== ENCOUNTER 2021-04-10 13:59 | Day surgery (SDC) | payer OTHER, BC, SELFPAY ==
[2021-04-10 14:14] VITALS: BP 162/107; PULSE 70; RESP 18; TEMP 36.6; O2SAT 98; BMI 33.0
[2021-04-10 14:27] VITALS: BP 201/120; PULSE 66; RESP 18; O2SAT 96
[2021-04-10 14:32] VITALS: PULSE 68; RESP 18; O2SAT 97
--- NOTE | 2021-04-10 14:38 | HMH.PMPROC ---
- Procedure Date: 04/10/21 Time: 14:38 Anesthesiologist:: Nany Moore APRN Complications:: None Pre-procedure Diagnosis:: Degenerative disc disease lumbar spine with lumbar radiculopathy symptoms, postlaminectomy syndrome lumbar spine, chronic low back pain Post-procedure Diagnosis:: Same Indications for Procedure:: Patient is a pleasant 60-year-old white male who presents today for intrathecal pain pump refill and reprogram. He has been treated for degenerative disc disease lumbar spine with lumbar radiculopathy symptoms. Patient is currently on Dilaudid at 1.68 mg/day. His pain is a 0 out of 10. He would like to decrease with his intrathecal therapy. He is on periodic flow. We will decrease him today. He is doing well overall. 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 The patient was taken to the procedure room where noninvasive monitoring was placed including noninvasive blood pressure cuff and pulse oximeter. Patient's pump was interrogated. The area over the pump was cleansed with chlorhexidine as a cleansing solution. In sterile fashion the pump was accessed with a 22-gauge needle. Approximately 5 mls of the pump solution was removed and discarded appropriately. The pump was then refilled with 20 mL's of Dilaudid 10 mg/mL. The needle was withdrawn and a bandage was placed over the puncture site. The infusion rate was reprogrammed at decreased to Dilaudid at 0.12 mg/day, daily dose of 1.44 mg/day. The patient tolerated well with no complication. Plan and Disposition:: We will see the patient back at his next intrathecal refill. Patient has been instructed to contact the clinic with any concerns before the next appointment. Dr. Boyle has reviewed this note and agrees with this plan of care. This note was dictated using voice recognition software and make contain errors or omissions.
[2021-04-10 14:44] VITALS: BP 165/99; PULSE 65; RESP 18; O2SAT 98
[2021-04-10 15:06] VITALS: BP 102/81; PULSE 66; RESP 20; O2SAT 98
== END 2021-04-10 14:45 | disposition home or self-care (01) ==
LOC: SC.PAINP 14:00
PROVIDERS: PCP Internal Medicine Adolescent Medicine; Visit Provider Clinical Nurse Specialist Family Health
DX: M51.16 Intervertebral disc disorders with radiculopathy, lumbar region (principal); M96.1 Postlaminectomy syndrome, not elsewhere classified; G89.29 Other chronic pain; E78.5 Hyperlipidemia, unspecified; I10 Essential (primary) hypertension; K21.9 Gastro-esophageal reflux disease without esophagitis; F41.9 Anxiety disorder, unspecified; F32.9 Major depressive disorder, single episode, unspecified; Z86.73 Personal history of transient ischemic attack (TIA), and cerebral infarction without residual deficits; Z87.442 Personal history of urinary calculi; Z85.46 Personal history of malignant neoplasm of prostate; Z88.0 Allergy status to penicillin
CPT/HCPCS: 62370

== ENCOUNTER 2021-04-14 08:00 | Outpatient (RCR) | payer BC, SELFPAY | END 2021-04-14 08:05 | disposition home or self-care (01) | LOC: PT 08:00 | PROVIDERS: PCP Internal Medicine Adolescent Medicine; Visit Provider Orthopaedic Surgery Adult Reconstructive Orthopaedic Surgery | DX: M25.562 Pain in left knee (principal); Z96.652 Presence of left artificial knee joint | CPT/HCPCS: 97010; 97014; 97016; 97110; 97140; 97163; G0283 ==

== ENCOUNTER → 2021-06-22 09:23 | Outpatient (CLI) | payer BC, SELFPAY ==
[2021-06-22 09:58] LABS: Basophils # 0.1 K/mm3 (0-0.2); Basophils % 2.6 % (0.1-2.0); Eosinophils # 0.3 K/mm3 (0.0-0.4); Eosinophils % 5.2 % (0.1-12.0); Hematocrit 47.8 % (42.0-52.0); Hemoglobin 15.2 g/dL (14.1-18.0); Lymphocytes # 1.5 K/mm3 (0.7-4.5); Lymphocytes % 29.5 % (10-50); Mean Corpuscular HGB Conc 31.8 g/dL (31.8-35.4); Mean Corpuscular Hemoglobin 28.1 pg (27.0-31.2); Mean Corpuscular Volume 88.4 fl (80-94); Mean Platelet Volume 8.3 fl (7.4-10.4); Monocytes # 0.4 K/mm3 (0.1-1.0); Monocytes % 6.9 % (1.7-9.3); Neutrophils # 2.8 K/mm3 (1.8-7.8); Neutrophils % 55.8 % (37.0-80.0); Platelet Count 255 K/mm3 (142-424); Red Blood Count 5.41 M/mm3 (4.60-6.20); Red Cell Distribution Width 14.6 % (11.5-17.5); White Blood Count 5.1 K/mm3 (4.8-10.8)
[2021-06-22 11:06] LABS: Alanine Aminotransferase 24 U/L (12-78); Albumin Level 4.2 g/dl (3.5-5.0); Albumin/Globulin Ratio 1.3 (1.1-1.8); Alkaline Phosphatase 108 U/L (38-126); Anion Gap 15.4 mEq/L (5-15); Aspartate Amino Transferase 29 U/L (17-59); Bilirubin,Total 0.4 mg/dl (0.2-1.3); Blood Urea Nitrogen 18 mg/dl (9-20); Calcium 9.7 mg/dl (8.4-10.2); Carbon Dioxide 28 mmol/L (22.0-30.0); Chloride 101 mmol/L (98-107); Estimated Glomerular Filt Rate 69 ml/min (>60); GFR (African American) 83 ML/MIN (>60); Globulin 3.3 g/dL (1.3-3.2); Glucose 101 mg/dl (74-100); Potassium 5.4 mmoL/L (3.5-5.1); Sodium 139 mmol/L (136-145); Total Protein,Serum 7.5 g/dl (6.3-8.2)
[2021-06-22 11:37] LABS: Thyroid Stimulating Hormone 1.53 uIU/mL (0.465-4.68)
[2021-06-22 11:56] LABS: Vitamin B12 > 1000 pg/mL (239-931)
[2021-06-27 15:10] LABS: Testosterone, Total, LC/MS 101.1 ng/dL (264.0-916.0); Testosterone,Free 1.1 pg/mL (7.2-24.0)
== END ==
PROVIDERS: Visit Provider Internal Medicine Adolescent Medicine
DX: R53.81 Other malaise (principal); R53.83 Other fatigue; E53.8 Deficiency of other specified B group vitamins; Z79.899 Other long term (current) drug therapy
CPT/HCPCS: 36415; 80053; 82607; 84402; 84403; 84443; 85025

== ENCOUNTER 2021-07-17 13:08 | Day surgery (SDC) | payer OTHER, SELFPAY ==
--- NOTE | 2021-07-17 13:14 | HMH.PMPROC ---
- Procedure Date: 07/17/21 Time: 13:15 Anesthesiologist:: Nany Moore APRN Complications:: None Pre-procedure Diagnosis:: Degenerative disc disease lumbar spine with lumbar radiculopathy symptoms, postlaminectomy syndrome lumbar spine, chronic low back pain Post-procedure Diagnosis:: Same Indications for Procedure:: Patient is a 60-year-old white female who presents today for intrathecal pain pump refill and reprogram. He is being treated for degenerative disc disease lumbar spine with lumbar radiculopathy symptoms, chronic low back pain, and postlaminectomy syndrome lumbar spine. At last visit the patient was decreased with his intrathecal therapy. He felt he was doing well and wanted to titrate down with his dosing. He does rate his pain a 6 out of 10 today. And would like to go back to his previous dosing. He is currently on Dilaudid at 1.44 mg/day and denies any side effects. We will increase the patient today. Physical exam General: Alert and oriented x3, no acute distress, pleasant and cooperative Lungs: Respirations even and unlabored, symmetrical chest expansion Eyes: PERRL Musculoskeletal: Flexion and extension of lumbar [spine] somewhat guarded secondary to pain, [antalgic gait noted] Neurological: Speech clear, no gross sensory deficit Procedure Details:: Informed consent was obtained and the risk and benefits of the procedure were explained to the patient. The patient was taken to the procedure room where noninvasive monitoring was placed including noninvasive blood pressure cuff and pulse oximeter. Patient's pump was interrogated. The area over the pump was cleansed with chlorhexidine as a cleansing solution. In sterile fashion the pump was accessed with a 22-gauge needle. Approximately 8 mls of the pump solution was removed and discarded appropriately. The pump was then refilled with 20 mL's of Dilaudid 10 mg per male. The needle was withdrawn and a bandage was placed over the puncture site. The infusion rate was reprogrammed at Dilaudid 1.72 mg/day. The patient tolerated well with no complication. Plan and Disposition:: We will see the patient back in the clinic at the next intrathecal refill. Patient has been instructed to contact the clinic with any concerns before the next appointment. Dr. Boyle has reviewed this note and agrees with this plan of care. This note was dictated using voice recognition software and make contain errors or omissions.
[2021-07-17 13:22] VITALS: BP 147/97; PULSE 89; RESP 20; TEMP 36.6; O2SAT 96; BMI 33.4
[2021-07-17 13:31] VITALS: BP 146/90; PULSE 78; RESP 18; O2SAT 97
[2021-07-17 13:34] VITALS: BP 138/93; PULSE 78; RESP 18; O2SAT 98
[2021-07-17 13:46] VITALS: BP 139/95; PULSE 79; RESP 20; O2SAT 97
== END 2021-07-17 13:50 | disposition home or self-care (01) ==
LOC: SC.PAINP 13:11
PROVIDERS: PCP Internal Medicine Adolescent Medicine; Visit Provider Clinical Nurse Specialist Family Health
DX: M51.16 Intervertebral disc disorders with radiculopathy, lumbar region (principal); M96.1 Postlaminectomy syndrome, not elsewhere classified; G89.29 Other chronic pain; Z45.1 Encounter for adjustment and management of infusion pump
CPT/HCPCS: 62368; 62370

== ENCOUNTER → 2021-09-06 10:28 | Outpatient (CLI) | payer BC, SELFPAY | PROVIDERS: PCP Internal Medicine Adolescent Medicine; Visit Provider Nurse Practitioner | DX: U07.1 COVID-19 (principal) | CPT/HCPCS: C9803; U0003; U0005 ==

== ENCOUNTER 2021-10-23 12:49 | Day surgery (SDC) | payer OTHER, SELFPAY ==
[2021-10-23 13:06] VITALS: BP 161/102; PULSE 77; RESP 20; TEMP 36.7; O2SAT 97; BMI 33.1
[2021-10-23 13:14] VITALS: BP 163/81; PULSE 72; RESP 18; O2SAT 97
[2021-10-23 13:16] VITALS: PULSE 72; RESP 18; O2SAT 97
--- NOTE | 2021-10-23 13:23 | HMH.PMPROC ---
- Procedure Date: 10/23/21 Time: 13:23 Anesthesiologist:: Nany Moore APRN Complications:: None Pre-procedure Diagnosis:: Degenerative disc disease of the lumbar spine with lumbar radiculopathy symptoms, postlaminectomy syndrome, chronic low back pain Post-procedure Diagnosis:: Same Indications for Procedure:: Patient is a pleasant 60-year-old male who presents today for intrathecal pain pump [refill] [and reprogram]. The patient is being treated for degenerative disc disease of the lumbar spine with lumbar radiculopathy symptoms, postlaminectomy syndrome, chronic low back pain. Patient is currently being managed with Dilaudid 10 mg/mL at a rate of 1.68 mg/day, periodic flow of 0.14 mg every 2 hours. Patient denies any side effects from this medication. Patient denies any change to location type of pain. Patient is not wanting an adjustment today. Patient rates pain a 5 out of 10. Drug screen is appropriate. Fazal [id number] with an active morphine equivalent of 0 has been reviewed and is appropriate. Physical exam General: Alert and oriented x3, no acute distress, pleasant and cooperative, [on room air] Lungs: Respirations even and unlabored, symmetrical chest expansion Eyes: PERRL Musculoskeletal: Flexion and extension of lumbar [spine] somewhat guarded secondary to pain Neurological: Speech clear, no gross sensory deficit Procedure Details:: Informed consent was obtained and the risk and benefits of the procedure were explained to the patient. The patient was taken to the procedure room where noninvasive monitoring was placed including noninvasive blood pressure cuff and pulse oximeter. Patient's pump was interrogated. The area over the pump was cleansed with chlorhexidine as a cleansing solution. In sterile fashion the pump was accessed with a 22-gauge needle. Approximately 5 mls of the pump solution was removed and discarded appropriately. The pump was then refilled with 20 mL's of Dilaudid 10 mg/mL. The needle was withdrawn and a bandage was placed over the puncture site. The infusion rate was continued at Dilaudid 1.68 mg/day, periodic flow of 0.14 mg every 2 hours. The patient tolerated well with no complication. Plan and Disposition:: We will see the patient back in the clinic at the next intrathecal refill. Patient has been instructed to contact the clinic with any concerns before the next appointment. Dr. Boyle has reviewed this note and agrees with this plan of care. This note was dictated using voice recognition software and make contain errors or omissions.
[2021-10-23 13:33] VITALS: BP 154/101; PULSE 76; RESP 20; O2SAT 98
[2021-10-23 14:52] LABS: Barbiturates Screen,Urine Negative ng/ml (<200)
[2021-10-23 14:53] LABS: Benzodiazepines Screen,Urine Negative ng/ml (<200)
[2021-10-23 14:54] LABS: Amphetamine/Metha Screen,Urine Negative ng/ml (<1000); Methadone Screen,Urine Negative ng/ml (<300)
[2021-10-23 14:55] LABS: Cannabinoid Screen,Urine Negative ng/ml (<50)
[2021-10-23 14:56] LABS: Cocaine Screen,Urine Negative ng/ml (<300); Opiate Screen,Urine Negative ng/ml (<300)
[2021-10-23 14:57] LABS: Phencyclidine Screen,Urine Negative ng/ml (<25)
[2021-11-06 17:11] LABS: Codeine Negative (Cutoff=100); Hydrocodone Negative (Cutoff=100); Hydromorphone Positive (.); Morphine Negative (Cutoff=100); Opiates Positive (.)
== END 2021-10-23 13:24 | disposition home or self-care (01) ==
LOC: SC.PAINP 12:49
PROVIDERS: PCP Internal Medicine Adolescent Medicine; Visit Provider Clinical Nurse Specialist Family Health
DX: M51.16 Intervertebral disc disorders with radiculopathy, lumbar region (principal); M96.1 Postlaminectomy syndrome, not elsewhere classified; G89.29 Other chronic pain; Z45.1 Encounter for adjustment and management of infusion pump
CPT/HCPCS: 80305; 80361; 80365; 95991; G0480

== ENCOUNTER → 2022-01-15 10:05 | Outpatient (CLI) | payer BC, SELFPAY ==
[2022-01-15 10:46] LABS: Basophils # 0.1 K/mm3 (0-0.2); Basophils % 1.7 % (0.1-2.0); Eosinophils # 0.2 K/mm3 (0.0-0.4); Eosinophils % 3.5 % (0.1-12.0); Hematocrit 49.2 % (42.0-52.0); Hemoglobin 15.9 g/dL (14.1-18.0); Lymphocytes # 1.2 K/mm3 (0.7-4.5); Lymphocytes % 23.7 % (10-50); Mean Corpuscular HGB Conc 32.2 g/dL (31.8-35.4); Mean Corpuscular Hemoglobin 26.1 pg (27.0-31.2); Mean Corpuscular Volume 81.1 fl (80-94); Mean Platelet Volume 8.3 fl (7.4-10.4); Monocytes # 0.2 K/mm3 (0.1-1.0); Monocytes % 4.7 % (1.7-9.3); Neutrophils # 3.2 K/mm3 (1.8-7.8); Neutrophils % 66.3 % (37.0-80.0); Platelet Count 219 K/mm3 (142-424); Red Blood Count 6.07 M/mm3 (4.60-6.20); Red Cell Distribution Width 18.6 % (11.5-17.5); White Blood Count 4.9 K/mm3 (4.8-10.8)
[2022-01-15 11:12] LABS: Alanine Aminotransferase 50 U/L (12-78); Albumin Level 4.5 g/dl (3.5-5.0); Albumin/Globulin Ratio 1.7 (1.1-1.8); Alkaline Phosphatase 69 U/L (38-126); Anion Gap 8.5 mEq/L (5-15); Aspartate Amino Transferase 42 U/L (17-59); Bilirubin,Total 0.9 mg/dl (0.2-1.3); Blood Urea Nitrogen 21 mg/dl (9-20); Calcium 9.2 mg/dl (8.4-10.2); Carbon Dioxide 33 mmol/L (22.0-30.0); Chloride 100 mmol/L (98-107); Cholesterol 178 mg/dl (140-200); Estimated Glomerular Filt Rate 69 ml/min (>60); GFR (African American) 83 ML/MIN (>60); Globulin 2.7 g/dL (1.3-3.2); Glucose 101 mg/dl (74-100); HDL Cholesterol 44 mg/dl (40-60); Potassium 4.5 mmoL/L (3.5-5.1); Sodium 137 mmol/L (136-145); Total Protein,Serum 7.2 g/dl (6.3-8.2); Triglycerides 93 mg/dl (30-150); VLDL Cholesterol 19 mg/dL (0-40)
[2022-01-15 11:23] LABS: Direct LDL Cholesterol 99.24 mg/dL (100-129)
[2022-01-15 11:26] LABS: Intact Parathyroid Hormone 86.9 pg/mL (7.5-53.5)
[2022-01-15 11:30] LABS: Free Thyroxine Index 2.2 ug/dL (5.93-13.13); T4 (Thyroxine) 6.2 ug/dl (5.53-11.0); Triiodothryronine (T3) Uptake 36 % (23.5-40.5)
[2022-01-15 11:43] LABS: Thyroid Stimulating Hormone 1.53 uIU/mL (0.465-4.68)
[2022-01-15 12:04] LABS: Vitamin B12 419 pg/mL (239-931)
[2022-01-16 09:14] LABS: PSA, Free <0.01 ng/mL; Prostate Specific Ag <0.1 ng/mL (0.0-4.0)
[2022-01-26 13:43] LABS: Testosterone,Free 0.7 pg/mL (7.2-24.0)
== END ==
LOC: LAB 10:08
PROVIDERS: Visit Provider Internal Medicine Adolescent Medicine
DX: E29.1 Testicular hypofunction (principal); Z86.39 Personal history of other endocrine, nutritional and metabolic disease; E55.9 Vitamin D deficiency, unspecified; E83.52 Hypercalcemia
CPT/HCPCS: 36415; 80053; 80061; 82306; 82607; 83970; 84153; 84154; 84402; 84403; 84436; 84443; 84479; 85025

== ENCOUNTER 2022-01-22 13:03 | Day surgery (SDC) | payer OTHER, BC, SELFPAY ==
[2022-01-22 13:14] VITALS: BP 133/80; PULSE 63; RESP 20; TEMP 36.6; O2SAT 95; BMI 33.4
[2022-01-22 13:28] VITALS: BP 134/84; PULSE 69; RESP 18; O2SAT 95
[2022-01-22 13:30] VITALS: BP 134/78; PULSE 62; RESP 18; O2SAT 95
--- NOTE | 2022-01-22 13:35 | HMH.PMPROC ---
- Procedure Date: 01/22/22 Time: 13:35 Anesthesiologist:: Nicolas Benítez CRNA Complications:: None Pre-procedure Diagnosis:: Degenerative disc disease lumbar spine. Lumbar radicular symptoms. Postlaminectomy syndrome. Post-procedure Diagnosis:: Same Indications for Procedure:: This patient is a pleasant 60-year-old white male we have been treating for quite some time for chronic low back pain due multiple lumbar back surgeries. Degenerative disc disease multiple levels. Postlaminectomy syndrome. Chronic low back. Patient is being managed with intrathecal pain pump Dilaudid 10 mg/mL at a rate of 1.68 mg/day. Also, periodic flow of 0.14 mg every 2 hours. Patient complaining of some increased pain in the lumbar spine area as well as some generalized pain in the lower legs. We discussed increasing the pump. He is interested in this. We will increase the periodic flow. Procedure Details:: Details of the procedure were explained to the patient. The patient was taken to the procedure room placed in the sitting position. The area over the lumbar spine was cleaned using chlorhexidine as a cleansing solution. The pump was accessed using a 22-gauge needle without difficulty. 6.3 cc of fluid was removed from the pump. The pump was then filled with 20 cc of Dilaudid 10 mg/mL. His rate was changed. Periodic flow was increased slightly. His daily dose is 1.8 mg/day. His periodic flow is 0.15 mg. Plan and Disposition:: Patient was discharged without incident.
[2022-01-22 13:42] VITALS: BP 118/81; PULSE 64; RESP 18; O2SAT 96
== END 2022-01-22 13:43 | disposition home or self-care (01) ==
LOC: SC.PAINP 13:04
PROVIDERS: PCP Internal Medicine Adolescent Medicine; Visit Provider Nurse Anesthetist, Certified Registered
DX: M51.16 Intervertebral disc disorders with radiculopathy, lumbar region (principal); M96.1 Postlaminectomy syndrome, not elsewhere classified; Z45.1 Encounter for adjustment and management of infusion pump; E78.5 Hyperlipidemia, unspecified; I10 Essential (primary) hypertension; M19.90 Unspecified osteoarthritis, unspecified site
CPT/HCPCS: 62370

== ENCOUNTER 2022-04-20 13:51 | Day surgery (SDC) | payer OTHER, SELFPAY ==
[2022-04-20 13:57] VITALS: BP 140/95; PULSE 77; RESP 20; O2SAT 95
[2022-04-20 14:01] VITALS: BP 133/83; PULSE 78; RESP 18; TEMP 36.5; O2SAT 95; BMI 30.4
[2022-04-20 14:16] VITALS: BP 126/70; PULSE 72; RESP 20; O2SAT 95
--- NOTE | 2022-04-24 11:20 | HMH.PMPROC ---
- Procedure Date: 04/20/22 Time: 13:00 Anesthesiologist:: Nicolas Benítez CRNA Complications:: None Pre-procedure Diagnosis:: Degenerative disc disease lumbar spine multilevels. Lumbar radiculopathy symptoms. Postlaminectomy syndrome. Post-procedure Diagnosis:: Same Indications for Procedure:: This patient is a pleasant 52-year-old male that comes our clinic today for pain pump interrogation refill. Patient is currently being managed with Dilaudid 2 mg/mL at 0.8 mg/day. Patient does not complain of any side effects or complications with the current medical management. We will interrogate his pump and refill it today. Procedure Details:: Details of the procedure were explained to the patient. The patient taken the procedure room placed in the sitting position. The area over the pain pump was cleansed using chlorhexidine as a cleansing solution. Using 22-gauge needle the pump was accessed with ease. 5 cc of solution was withdrawn and discarded appropriately. At this time 20 cc of Dilaudid 10 mg/mL was injected incrementally into the pump. Patient tolerated procedure without difficulty. There are no complications. Plan and Disposition:: Patient was discharged without incident.
== END 2022-04-20 14:17 | disposition home or self-care (01) ==
LOC: SC.PAINP 13:52
PROVIDERS: PCP Internal Medicine Adolescent Medicine; Visit Provider Nurse Anesthetist, Certified Registered
DX: M51.16 Intervertebral disc disorders with radiculopathy, lumbar region (principal); M96.1 Postlaminectomy syndrome, not elsewhere classified; I10 Essential (primary) hypertension
CPT/HCPCS: 95991

== ENCOUNTER 2022-07-10 13:19 | Day surgery (SDC) | payer OTHER, SELFPAY ==
[2022-07-10 13:30] VITALS: BP 135/87; PULSE 78; RESP 16; TEMP 37; O2SAT 95; BMI 31.9
[2022-07-10 13:43] VITALS: BP 141/89; PULSE 82; RESP 18; O2SAT 98
[2022-07-10 13:44] VITALS: BP 141/89; PULSE 82; RESP 18; O2SAT 98
[2022-07-10 13:53] VITALS: BP 113/74; PULSE 63; RESP 18; O2SAT 93
--- NOTE | 2022-07-10 14:03 | EXP.PAIN.PRO ---
Procedure Date: 07/10/22 Time: 13:50 Anesthesiologist:: Nicolas Benítez CRNA Complications:: None Pre-procedure Diagnosis:: Degenerative disc disease lumbar spine multilevels. Lumbar radiculopathy symptoms. Postlaminectomy syndrome lumbar spine Post-procedure Diagnosis:: Same. Indications for Procedure:: Patient is a very pleasant 52-year-old male that comes our clinic today for intrathecal pain pump refill and interrogation. He is currently being managed with Dilaudid 10 mg/mL at 1.8 mg/day. He does not report any side effects or complications with the current medication. Procedure Details:: Details of the procedure were explained to the patient. The patient taken the procedure room placed in the sitting position. The area over the pump was cleansed using chlorhexidine as a cleansing solution. The pump was accessed with ease using a 22-gauge needle. 5.1 mL of fluid was removed as expected and discarded appropriately. The pump was then filled with 20 cc of Dilaudid 10 mg/mL. Pump rate will continue at 1.8 mg/day patient tolerated procedure without difficulty. There are no complications. Plan and Disposition:: Patient was discharged without incident.
== END 2022-07-10 13:54 | disposition home or self-care (01) ==
LOC: SC.PAINP 13:19
PROVIDERS: PCP Internal Medicine Adolescent Medicine; Visit Provider Nurse Anesthetist, Certified Registered
DX: M51.16 Intervertebral disc disorders with radiculopathy, lumbar region (principal); M96.1 Postlaminectomy syndrome, not elsewhere classified
CPT/HCPCS: 95991

== ENCOUNTER → 2022-08-16 16:02 | Outpatient (CLI) | payer BC, SELFPAY | PROVIDERS: PCP Internal Medicine Adolescent Medicine; Visit Provider Internal Medicine Adolescent Medicine | DX: R06.02 Shortness of breath (principal); R53.83 Other fatigue; R40.0 Somnolence; Z86.69 Personal history of other diseases of the nervous system and sense organs | CPT/HCPCS: G0399 ==

== ENCOUNTER 2022-09-18 13:12 | Day surgery (SDC) | payer OTHER, SELFPAY ==
[2022-09-18 13:26] VITALS: BP 161/83; PULSE 95; RESP 18; TEMP 36.6; O2SAT 96; BMI 31.4
[2022-09-18 13:47] VITALS: BP 131/80; PULSE 80; RESP 18; O2SAT 97
[2022-09-18 13:48] VITALS: BP 131/80; PULSE 80; RESP 18; O2SAT 97
[2022-09-18 14:00] VITALS: BP 142/83; PULSE 85; RESP 18; O2SAT 94
--- NOTE | 2022-09-18 14:00 | EXP.PAIN.PRO ---
Procedure Date: 09/18/22 Time: 14:00 Anesthesiologist:: Nicolas Benítez CRNA Complications:: None Pre-procedure Diagnosis:: Degenerative disc disease lumbar spine multilevels. Lumbar radiculopathy. Lumbar spondylosis. Lumbar spine listhesis L4-5. Post-procedure Diagnosis:: Same. Indications for Procedure:: Patient is a very pleasant 61-year-old male that comes our clinic today for intrathecal pain pump refill. Patient is being managed with Dilaudid 10 mg/mL at 1.8 mg/day. Patient has no complaints regarding pain and/or complications from the intrathecal pain pump therapy. Procedure Details:: Details of the procedure were explained to the patient. The patient taken the procedure room placed in sitting position. The area over the pump was cleansed using chlorhexidine as a cleansing solution. The pump was accessed with ease using a 22-gauge needle. 7 mL of solution was withdrawn and discarded appropriately. The pump was then filled with 20 cc of Dilaudid 10 mg/mL. Patient tolerated procedure without difficulty. There are no complications. Plan and Disposition:: Patient was discharged without incident.
== END 2022-09-18 14:00 | disposition home or self-care (01) ==
LOC: SC.PAINP 13:13
PROVIDERS: PCP Internal Medicine Adolescent Medicine; Visit Provider Nurse Anesthetist, Certified Registered
DX: M51.16 Intervertebral disc disorders with radiculopathy, lumbar region (principal); M47.26 Other spondylosis with radiculopathy, lumbar region
CPT/HCPCS: 95991

== ENCOUNTER 2022-12-18 10:45 | Day surgery (SDC) | payer OTHER, SELFPAY ==
[2022-12-18 11:00] VITALS: BP 160/81; PULSE 69; RESP 18; TEMP 36.8; O2SAT 96; BMI 30.4
[2022-12-18 11:13] VITALS: BP 141/78; PULSE 66; RESP 18; O2SAT 97
[2022-12-18 11:14] VITALS: BP 141/78; PULSE 66; RESP 18; O2SAT 97
[2022-12-18 11:29] VITALS: BP 130/76; PULSE 67; RESP 18; O2SAT 96
--- NOTE | 2022-12-18 12:06 | EXP.PAIN.PRO ---
Procedure Date: 12/18/22 Time: 11:30 Anesthesiologist:: Nicolas Benítez CRNA Complications:: None Pre-procedure Diagnosis:: Degenerative disc disease lumbar spine multilevels. Lumbar radiculopathy. Lumbar spondylosis. Post-procedure Diagnosis:: Same. Indications for Procedure:: This patient is a very pleasant 61-year-old male that comes our clinic today for intrathecal pain pump interrogation and refill. We currently manage the patient with Dilaudid 10 mg/mL at 1.8 mg/day. He does not report any side effects or complications with intrathecal pain pump management. He is not requesting any changes in his current settings. Procedure Details:: Details of the procedure were explained to the patient. The patient taken procedure room placed in the sitting position. The area over the pump was cleansed using chlorhexidine as a cleansing solution. The pump was interrogated. The pump was accessed with ease using a 22-gauge inch and half needle. 3 mL of solution was withdrawn and discarded appropriately. The pump was then filled with 20 cc incrementally of Dilaudid 10 mg/mL. The rate will continue at 1.8 mg/day. Plan and Disposition:: Patient was discharged without incident.
== END 2022-12-18 11:29 | disposition home or self-care (01) ==
PROVIDERS: PCP Internal Medicine Adolescent Medicine; Visit Provider Nurse Anesthetist, Certified Registered
DX: Z45.1 Encounter for adjustment and management of infusion pump (principal); M51.16 Intervertebral disc disorders with radiculopathy, lumbar region; M47.26 Other spondylosis with radiculopathy, lumbar region
CPT/HCPCS: 95991

== ENCOUNTER 2023-03-12 08:19 | Day surgery (SDC) | payer OTHER, BC, SELFPAY ==
[2023-03-12 09:00] VITALS: BP 135/81; PULSE 68; RESP 18; TEMP 36.9; O2SAT 96; BMI 31.9
[2023-03-12 09:23] VITALS: BP 125/79; PULSE 60; RESP 18; O2SAT 97
[2023-03-12 09:25] VITALS: BP 125/79; PULSE 60; RESP 18; O2SAT 97
--- NOTE | 2023-03-12 09:29 | EXP.PAIN.PRO ---
Procedure Date: 03/12/23 Time: 09:20 Anesthesiologist:: Nicolas Benítez CRNA Complications:: None Pre-procedure Diagnosis:: Degenerative disc lumbar spine multilevels. Lumbar radiculopathy. Spondylolisthesis. 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 Post-procedure Diagnosis:: Same. Indications for Procedure:: Patient is a very pleasant 61-year-old male who comes our clinic today for intrathecal pain pump interrogation and refill. Patient is currently being managed with Dilaudid 2 mg/mL at 1.8 mg/day. Patient states he is doing very well with his current settings. He does not complain of any side effects or complications regarding the intrathecal pain pump management. Procedure Details:: Details of the procedure explained to the patient. The patient taken the procedure room placed in the sitting position. The area over the pump was cleansed using chlorhexidine as a cleansing solution. The pump was interrogated. The pump was accessed with ease using a 22-gauge inch and half needle. 5 mL of solution was withdrawn and discarded appropriately. The pump was then filled incrementally with 20 cc of Dilaudid 10 mg/mL. The rate will continue 1.8 mg/day. Patient tolerated procedure without difficulty. There are no complications. Plan and Disposition:: Patient was discharged without incident.
[2023-03-12 09:35] VITALS: BP 116/71; PULSE 57; RESP 18; O2SAT 96
== END 2023-03-12 09:35 | disposition home or self-care (01) ==
PROVIDERS: PCP Internal Medicine Adolescent Medicine; Visit Provider Nurse Anesthetist, Certified Registered
DX: M51.16 Intervertebral disc disorders with radiculopathy, lumbar region (principal); M43.10 Spondylolisthesis, site unspecified
CPT/HCPCS: 95991

== ENCOUNTER 2023-06-04 10:19 | Day surgery (SDC) | payer OTHER, SELFPAY ==
[2023-06-04 10:29] VITALS: BP 127/71; PULSE 81; RESP 18; TEMP 36.6; O2SAT 94; BMI 32.3
[2023-06-04 10:37] VITALS: BP 136/76; PULSE 77; RESP 19; O2SAT 97
[2023-06-04 10:39] VITALS: BP 136/76; PULSE 77; RESP 19; O2SAT 97
--- NOTE | 2023-06-04 10:53 | EXP.PAIN.PRO ---
Procedure Date: 06/04/23 Time: 10:30 Anesthesiologist:: Nicolas Benítez CRNA Complications:: None Pre-procedure Diagnosis:: Degenerative disc lumbar spine multilevels. Lumbar radiculopathy Post-procedure Diagnosis:: Same. Indications for Procedure:: Patient is a very pleasant 62-year-old male that comes our clinic today for intrathecal pain pump interrogation refill. Patient currently being managed with Dilaudid 2 mg/mL at 1.8 mg/day. He is doing very well on his current settings. He does not complain of any side effects or report any complications regarding his current intrathecal pain pump management. Procedure Details:: Details of the procedure explained to the patient. The patient taken the procedure room placed in the sitting position. The area of the pump was cleansed using chlorhexidine as a cleansing solution. The pump was interrogated. The pump was accessed with ease using a 22-gauge inch and half needle. 5 mL of solution was withdrawn discarded appropriately. The pump was then filled with 20 cc of a solution containing Dilaudid 10 mg/mL. Rate will continue at 1.8 mg/day. Patient tolerated procedure without difficulty. No complications. Plan and Disposition:: Patient was discharged without incident.
[2023-06-04 10:56] VITALS: BP 144/85; PULSE 81; RESP 20
== END 2023-06-04 10:57 | disposition home or self-care (01) ==
PROVIDERS: PCP Internal Medicine Adolescent Medicine; Visit Provider Nurse Anesthetist, Certified Registered
DX: M51.16 Intervertebral disc disorders with radiculopathy, lumbar region (principal); Z97.8 Presence of other specified devices
CPT/HCPCS: 95991

== ENCOUNTER → 2023-06-20 16:16 | Outpatient (CLI) | payer BC, SELFPAY ==
--- NOTE | 2023-06-20 16:19 | XR_ITS ---
PROCEDURE INFORMATION: Exam: XR Chest Exam date and time: 06/20/2023 4:25 PM Age: 62 years old Clinical indication: Orthopnea (sob when lying down) TECHNIQUE: Imaging protocol: Radiologic exam of the chest. Views: 2 views. COMPARISON: CR CXR2V XR chest 2V 10/31/2018 10:29 AM FINDINGS: Lungs: There is elevation of the left hemithorax. There is a left basilar consolidation. Pleural spaces: Unremarkable. No pleural effusion. No pneumothorax. Heart/Mediastinum: Unremarkable. No cardiomegaly. Bones/joints: There is partially visualized cervical spine surgical hardware. There is a left humeral head and surgical anchor . There are degenerative changes of the thoracic spine. Intraperitoneal space: There are right upper quadrant surgical clips suggesting prior cholecystectomy. IMPRESSION: There is a left basilar consolidation.
== END ==
PROVIDERS: PCP Internal Medicine Adolescent Medicine; Visit Provider Nurse Practitioner Family
DX: R06.01 Orthopnea (principal)
CPT/HCPCS: 71046

== ENCOUNTER → 2023-06-21 09:58 | Outpatient (CLI) | payer BC, SELFPAY ==
[2023-06-21 10:34] LABS: Basophils # 0.1 K/mm3 (0-0.2); Basophils % 0.5 % (0.1-2.0); Eosinophils # 0.1 K/mm3 (0.0-0.4); Eosinophils % 1.3 % (0.1-12.0); Hematocrit 56.8 % (42.0-52.0); Hemoglobin 17.9 g/dL (14.1-18.0); Lymphocytes % 10.2 % (10-50); Mean Corpuscular HGB Conc 31.5 g/dL (31.8-35.4); Mean Corpuscular Hemoglobin 28.5 pg (27.0-31.2); Mean Corpuscular Volume 90.6 fl (80-94); Mean Platelet Volume 7.8 fl (7.4-10.4); Monocytes # 0.5 K/mm3 (0.1-1.0); Monocytes % 5.5 % (1.7-9.3); Neutrophils # 7.7 K/mm3 (1.8-7.8); Neutrophils % 82.5 % (37.0-80.0); Platelet Count 228 K/mm3 (142-424); Red Blood Count 6.27 M/mm3 (4.60-6.20); Red Cell Distribution Width 13.5 % (11.5-17.5); White Blood Count 9.3 K/mm3 (4.8-10.8)
[2023-06-21 11:21] LABS: Alanine Aminotransferase 39 U/L (12-78); Albumin Level 4.7 g/dl (3.5-5.0); Albumin/Globulin Ratio 1.6 (1.1-1.8); Alkaline Phosphatase 79 U/L (38-126); Aspartate Amino Transferase 34 U/L (17-59); Bilirubin,Total 0.9 mg/dl (0.2-1.3); Blood Urea Nitrogen 15 mg/dl (9-20); Calcium 9.3 mg/dl (8.4-10.2); Carbon Dioxide 28 mmol/L (22.0-30.0); Chloride 97 mmol/L (98-107); Estimated Glomerular Filt Rate 76 ml/min (>60); GFR (African American) 92 ML/MIN (>60); Glucose 89 mg/dl (74-100); Sodium 136 mmol/L (136-145); Total Protein,Serum 7.7 g/dl (6.3-8.2)
[2023-06-21 11:37] LABS: 25-OH Vitamin D, Total 44.9 ng/mL (30-100)
[2023-06-22 08:16] LABS: Testosterone,Total 421 ng/dL (264-916)
== END ==
LOC: LAB 09:59
PROVIDERS: PCP Internal Medicine Adolescent Medicine; Visit Provider Nurse Practitioner Family
DX: E29.1 Testicular hypofunction (principal); R06.01 Orthopnea; I10 Essential (primary) hypertension; E55.9 Vitamin D deficiency, unspecified; Z68.33 Body mass index [BMI] 33.0-33.9, adult
CPT/HCPCS: 36415; 80053; 82306; 84403; 85025

== ENCOUNTER → 2023-07-04 13:52 | Outpatient (CLI) | payer BC, SELFPAY ==
--- NOTE | 2023-07-04 14:00 | CT_ITS ---
FINAL REPORT CLINICAL HISTORY: ELEVATED HEMIDIAPHRAGM,LUNG CONSOLIDATION,ORTHPNEA FINDINGS: CT CHEST WITHOUT AND WITH CONTRAST TECHNIQUE: Pre and postcontrast axial images through the chest were performed by computed tomography. This study was performed with techniques to keep radiation doses as low as reasonably achievable, (ALARA). Individualized dose reduction techniques using automated exposure control or adjustment of mA and/or kV according to the patient's size were employed. FINDINGS: There is small mediastinal lymph nodes. There is no hilar or mediastinal adenopathy. The heart size is normal. There is no pericardial or pleural effusion. There is elevation of the left hemidiaphragm with lingular and left lower lobe atelectasis. Several chronic right lateral rib fractures are noted. Limited images of the upper abdomen demonstrate surgical clips in the right upper quadrant consistent with cholecystectomy. A gastric lap band is present. IMPRESSION: No acute process. Reviewed, Interpreted and Dictated by Carlos Damian III, MD Transcribed by Paradise Gupta Authenticated and [facility]
== END ==
LOC: RAD 13:53
PROVIDERS: PCP Internal Medicine Adolescent Medicine; Visit Provider Nurse Practitioner Family
DX: R06.01 Orthopnea (principal); J98.6 Disorders of diaphragm; J18.1 Lobar pneumonia, unspecified organism
CPT/HCPCS: 71270; Q9967

== ENCOUNTER → 2023-08-19 07:34 | Outpatient (CLI) | payer BC, SELFPAY ==
--- NOTE | 2023-08-19 | CA_ITS ---
APPROVED REPORT EXAM: Comprehensive 2D, Doppler, and color-flow Echocardiogram Belting And Webbing Inspector: Richa Bhandari RT(R) Ht: 5 ft 8 in Wt: 217lbs BSA: 2.12 BP: 143/82 mmHg Indications: CP, ex smoker, edema, HTN, DE LA O, obesity, hyperlipidemia, family history of HD, Abn EKG 2D Dimensions LVOT 2.00 cm (M/F) 1.5-2.5 LVEF (Mendez's) 66.30 % M: 52 - 72 LV Volume 101.20 mL M: 62 - 150 LV Volume Index 47.74 mL/m2 M: 34 - 74 LA Volume 46.30 mL LA Volume Index 21.84 mL/m2 (M/F) 16-34 M-Mode Dimensions RVDd 1.90 cm (0.9-2.6) LA Diam 2.87 cm (1.9-4.0) LVDd 4.87 cm (3.5-5.7) Ao Diam 2.99 cm (2.0-3.7) LVDs 3.62 cm (3.5-5.7) IVSd 0.79 cm (0.6-1.1) PWd 0.93 cm (0.6-1.1) EF (Teich) 50.40% FS 25.70% EDV (Teich) 111.20 mL ESV (Teich) 55.20 mL LV Diastology E Decel Time 180.00 (160-240 msec) E/A Ratio 1.29 MED E' 12.00 (< 7 cm/sec) E'/MED E' Ratio 7.88 (>14) LAT E' 10.00 (<10 cm/sec) E/LAT E' Ratio 9.45 (>14) Mitral Valve MV A Velocity 73.00 (40-130 cm/s) E/A Ratio 1.29 MV Decel. Time 180.00 (160-240 ms) Left Ventricle The left ventricle is normal size. The left ventricular systolic function is normal. The left ventricular ejection fraction is within the normal range. There is normal left ventricular wall thickness. There is normal LV segmental wall motion. The left ventricular diastolic function is normal. LVEF is 60%. Right Ventricle The right ventricle is normal size. The right ventricular systolic function is normal. Atria The left atrium size is normal. The right atrium size is normal. There is no Doppler evidence of interatrial shunt. Aortic Valve The aortic valve opens well. There is no aortic valvular stenosis. No aortic regurgitation is present. Mitral Valve The mitral valve is normal in structure. No evidence of mitral valve stenosis. Trace normal biventricular systolic function. mitral valve regurgitation noted. Tricuspid Valve The tricuspid valve leaflets are thin and pliable. Trace tricuspid regurgitation. There is insufficient TR jet to estimate RVSP. Pulmonic Valve The pulmonary valve is normal in structure. Trace pulmonic regurgitation. Great Vessels The aortic root is normal in size. The ascending aorta is normal in size. IVC is normal in size and collapses >50% with inspiration. Pericardium There is no pericardial effusion. Other Information Study Quality: Adequate Conclusion Normal biventricular systolic function. No significant valvular stenosis or regurgitation. Electronically signed by : Raeann Padilla MD 08/27/2023 22:58:37
== END ==
LOC: RT 07:34
PROVIDERS: PCP Internal Medicine Adolescent Medicine; Visit Provider Internal Medicine Adolescent Medicine
DX: R06.00 Dyspnea, unspecified (principal)
CPT/HCPCS: 93306

== ENCOUNTER 2023-09-02 07:55 | Day surgery (SDC) | payer BC, SELFPAY ==
[2023-09-02 08:11] VITALS: BP 119/95; PULSE 75; RESP 19; O2SAT 94; BMI 32.8
--- NOTE | 2023-09-02 08:28 | P.PCN_ITS ---
Procedure Date: 09/02/23 Time: 08:28 Anesthesiologist:: Kiley Moralez APRN Complications:: None Pre-procedure Diagnosis:: Degenerative disc disease of lumbar spine with lumbar radiculopathy symptoms Post-procedure Diagnosis:: Same Indications for Procedure:: Patient is a pleasant 62-year-old male who presents today for intrathecal refill and reprogram. We are currently treating the patient for degenerative disc disease of lumbar spine with lumbar radiculopathy symptoms. Patient is cur rently managed with Dilaudid 10 mg/mL with a daily dose of 1.8 mg/day. Patient denies any side effects from this medication. He does state that the medication does help manage his pain symptoms and denies any side effects. His Fazal has been reviewed and is appropriate. Physical Exam: General: Alert and oriented x3, no acute distress, pleasant and cooperative Lungs: Respirations even and unlabored, symmetrical chest expansion Eyes: PERRL Musculoskeletal: Flexion and extension of lumbar [spine] somewhat guarded secondary to pain, [antalgic gait noted] Neurological: Speech clear, no gross sensory deficit Procedure Details:: Informed consent was obtained and the risk and benefits of the procedure were explained to the patient. The patient was taken to the procedure room where noninvasive monitoring was placed including noninvasive blood pressure cuff and pulse oximeter. Patient's pump was interrogated. The area over the pump was cl eansed with chlorhexidine as a cleansing solution. In sterile fashion the pump was accessed with a 22-gauge needle. Approximately 4.2 mls of the pump solution was removed and discarded appropriately. The pump was then refilled with 20 mL's of Dilaudid 10 mg/mL. The needle was withdrawn and a bandage was placed over the puncture site. The infusion rate was reprogrammed and continued at Dilaudid 1.8 mg/day. The patient tolerated well with no complication. Plan and Disposition:: We will see the patient back in the clinic at the next intrathecal refill. Patient tolerated his intrathecal increase with no complications and was discharged neurologically intact. patient has been instructed to contact the clinic with any concerns before the n ext appointment. Dr. Boyle has reviewed this note and agrees with this plan of care. This note was dictated using voice recognition software and make contain errors or omissions. -- It Is medically necessary for this patient to continue to have their intrathecal pump refilled at regular intervals. This patient had an intrathecal pain pump implanted after meeting criteria of chronic intractable pain for greater than 3 months and failing conservative treatments. Patient has committed and been compliant to the treatment plan and all planned follow up care. Since implantation of the intrathecal pain pump, the patient has had decreased pain and been more functional. Oral medications have been reduced including intake of oral opioids. Patient continues to do well with intrathecal therapy with decrease in pain symptoms and increase in functional status. Stopping intrathecal medications can lead to life threatening withdrawal, seizures, cardiac arrest, severe pain, and possible . Pumps that are not refilled at regular intervals can be damages and cause and need for replacement. We continually titrate dose and concentration to optimize pain relief and function. We are limited in concentration for certain drugs to safely deliver medications through the pump and stay within the recommendations from the Polyanalgesic Consensus Committee Guidelines. Depending on dose and concentration these pumps may need to be refilled sooner than 3 months as we titrate.
[2023-09-02 08:58] VITALS: BP 128/95; PULSE 77; RESP 18; O2SAT 95
[2023-09-02 09:04] VITALS: BP 128/95; PULSE 77; RESP 18; O2SAT 97
[2023-09-02 09:17] VITALS: BP 128/95; PULSE 77; RESP 18; O2SAT 95
== END 2023-09-02 08:42 | disposition home or self-care (01) ==
PROVIDERS: PCP Internal Medicine Adolescent Medicine; Visit Provider Nurse Anesthetist, Certified Registered
DX: M51.16 Intervertebral disc disorders with radiculopathy, lumbar region (principal); Z97.8 Presence of other specified devices
CPT/HCPCS: 62370

== ENCOUNTER 2023-10-21 12:00 | Outpatient (CLI) | payer BC, SELFPAY ==
[2023-10-22 09:24] LABS: PSA, Free <0.02 ng/mL; Prostate Specific Ag <0.1 ng/mL (0.0-4.0)
== END 2023-10-21 23:59 ==
LOC: LAB 12:01
PROVIDERS: PCP Internal Medicine Adolescent Medicine; Visit Provider Urology
DX: Z85.46 Personal history of malignant neoplasm of prostate (principal); Z87.891 Personal history of nicotine dependence
CPT/HCPCS: 36415; 84153; 84154

== ENCOUNTER 2023-11-19 07:48 | Day surgery (SDC) | payer OTHER, SELFPAY ==
[2023-11-19 08:07] VITALS: BP 135/73; PULSE 80; RESP 16; TEMP 36.9; O2SAT 91; BMI 31.9
[2023-11-19 08:30] VITALS: BP 155/88; PULSE 79; RESP 18; O2SAT 93
[2023-11-19 08:31] VITALS: BP 155/88; PULSE 78; RESP 18; O2SAT 93
[2023-11-19 08:41] VITALS: BP 117/71; PULSE 73; RESP 16; O2SAT 91
--- NOTE | 2023-11-19 08:43 | EXP.PAIN.PRO ---
Procedure Date: 11/19/23 Time: 08:15 Anesthesiologist:: Nicolas Benítez CRNA Complications:: None Pre-procedure Diagnosis:: Degenerative disc lumbar spine multilevels. Lumbar radiculopathy. Lumbar postlaminectomy syndrome. Post-procedure Diagnosis:: Same. Indications for Procedure:: Patient is a very pleasant 62-year-old male comes our clinic today for intrathecal pain pump interrogation refill. Patient reporting some increased pain in the evening. Patient reports not necessarily due to activity. Just begins having some dull aching pain in the low back without radicular symptoms. He is requesting increase in rate today. I think this is reasonable. Will increase in by 10%. Procedure Details:: Details of the procedure explained to the patient. The patient x-rays to room placed sitting position. The area over the pump was cleansed using chlorhexidine's cleansing solution. The pump was interrogated. The pump was accessed with ease using 22-gauge inch and half needle. 5 mL of solution was withdrawn discarded appropriate. The pump was then filled with 20 cc of solution containing Dilaudid 10 mg/mL. The rate will increase by 10% today. The new rate will be 1.9800 mg/day. Patient tolerated procedure without difficulty. There are no complications. Plan and Disposition:: Patient was discharged without incident.
[2023-11-19 09:51] LABS: Amphetamine/Metha Screen,Urine Negative ng/ml (<1000)
[2023-11-19 09:52] LABS: Barbiturates Screen,Urine Negative ng/ml (<200)
[2023-11-19 09:53] LABS: Cannabinoid Screen,Urine Negative ng/ml (<50)
[2023-11-19 09:54] LABS: Cocaine Screen,Urine Negative ng/ml (<300)
[2023-11-19 09:55] LABS: Methadone Screen,Urine Negative ng/ml (<300); Opiate Screen,Urine Positive ng/ml (<300)
[2023-11-19 09:56] LABS: Phencyclidine Screen,Urine Negative ng/ml (<25)
[2023-11-19 09:58] LABS: Benzodiazepines Screen,Urine Negative ng/ml (<200)
[2023-11-25 00:07] LABS: Codeine Negative (Cutoff=100); Hydrocodone Negative (Cutoff=100); Hydromorphone Positive (.); Morphine Negative (Cutoff=100); Opiates Positive (.)
== END 2023-11-19 08:41 | disposition home or self-care (01) ==
PROVIDERS: PCP Internal Medicine Adolescent Medicine; Visit Provider Nurse Anesthetist, Certified Registered
DX: M51.16 Intervertebral disc disorders with radiculopathy, lumbar region (principal); M96.1 Postlaminectomy syndrome, not elsewhere classified; Z97.8 Presence of other specified devices; Z45.1 Encounter for adjustment and management of infusion pump
CPT/HCPCS: 80307; 80361; 80365; 95991; G0480

== ENCOUNTER → 2023-12-04 20:04 | Outpatient (CLI) | payer BC, SELFPAY | PROVIDERS: PCP Internal Medicine Adolescent Medicine; Visit Provider Nurse Practitioner Family | DX: G47.33 Obstructive sleep apnea (adult) (pediatric) (principal) | CPT/HCPCS: 95811 ==

== ENCOUNTER 2024-02-04 07:47 | Day surgery (SDC) | payer OTHER, SELFPAY ==
[2024-02-04 08:16] VITALS: BP 143/92; PULSE 66; PULSE 70; PULSE 78; RESP 18; O2SAT 98
[2024-02-04 08:20] VITALS: BP 133/72; PULSE 58; RESP 18; TEMP 36.7; O2SAT 98; BMI 30.4
[2024-02-04 08:26] VITALS: BP 118/75; PULSE 63; RESP 18; TEMP 36.8; O2SAT 98
--- NOTE | 2024-02-04 08:31 | EXP.PAIN.PRO ---
Procedure Date: 02/04/24 Time: 08:12 Anesthesiologist:: Nicolas Benítez CRNA Complications:: None Pre-procedure Diagnosis:: Degenerative disc lumbar spine multilevels. Lumbar radiculopathy. Lumbar postlaminectomy syndrome. Lumbar spondylosis Post-procedure Diagnosis:: Same. Indications for Procedure:: Patient is a very pleasant 63-year-old male comes our clinic today for intrathecal pain pump interrogation and refill. He is currently being managed with Dilaudid 10 mg/mL at a rate of 1.98 mg/day. Patient doing very well his current settings. He is not reporting any side effects or complications. He is not requesting any changes in his current intrathecal pain pump rate. Procedure Details:: Details of the procedure were explained to the patient. The patient taken procedure and placed in the sitting position. They over the pumps cleansed using chlorhexidine's cleansing solution. The pump was interrogated. The pump was accessed with ease using a 22-gauge inch and half needle. 6 mL of solution was withdrawn and discarded appropriately. The pump was then filled with 20 cc of solution containing Dilaudid 10 mg/mL. The rate will remain at 1.98 mg/day. Patient tolerated procedure without difficulty. There are no complications. Plan and Disposition:: Patient was discharged without incident.
== END 2024-02-04 08:24 | disposition home or self-care (01) ==
PROVIDERS: PCP Internal Medicine Adolescent Medicine; Visit Provider Nurse Anesthetist, Certified Registered
DX: M51.16 Intervertebral disc disorders with radiculopathy, lumbar region (principal); M96.1 Postlaminectomy syndrome, not elsewhere classified; M47.26 Other spondylosis with radiculopathy, lumbar region; Z45.1 Encounter for adjustment and management of infusion pump; Z97.8 Presence of other specified devices
CPT/HCPCS: 95991

== ENCOUNTER 2024-05-01 10:03 | Outpatient (CLI) | payer BC, SELFPAY | END 2024-05-01 10:40 | disposition home or self-care (01) | LOC: INF 10:05 | PROVIDERS: PCP Internal Medicine Adolescent Medicine; Visit Provider Internal Medicine Adolescent Medicine | DX: D45 Polycythemia vera (principal) | CPT/HCPCS: 99195 ==

== ENCOUNTER 2024-05-06 07:54 | Day surgery (SDC) | payer OTHER, SELFPAY ==
[2024-05-06 08:16] VITALS: BP 128/80; PULSE 71; RESP 16; TEMP 36.8; O2SAT 95; BMI 33.6
[2024-05-06 08:43] VITALS: BP 130/83; PULSE 67; RESP 18; O2SAT 91
[2024-05-06 09:02] VITALS: BP 113/69; PULSE 62; RESP 16; O2SAT 93
--- NOTE | 2024-05-06 09:27 | EXP.PAIN.PRO ---
Procedure Date: 05/06/24 Time: 08:40 Anesthesiologist:: Kiley Moralez APRN Complications:: None Pre-procedure Diagnosis:: Degenerative disc disease of lumbar spine with lumbar radiculopathy symptoms, lumbar postlaminectomy syndrome Post-procedure Diagnosis:: Same Indications for Procedure:: Patient is a pleasant 63-year-old male who presents today for intrathecal refill and reprogram. Today he rates his pain as a 4 out of 10. Patient denies any new trauma or injury. He does state that his current dosage is working well with his. He is currently managed with Dilaudid 2 mg/mL with a daily dose of 1.98 mg/day. His Fazal has been reviewed and is appropriate. Physical Exam: General: Alert and oriented x3, no acute distress, pleasant and cooperative Lungs: Respirations even and unlabored, symmetrical chest expansion Eyes: PERRL Musculoskeletal: Flexion and extension of lumbar [spine] somewhat guarded secondary to pain, [antalgic gait noted] Neurological: Speech clear, no gross sensory deficit Procedure Details:: Informed consent was obtained and the risk and benefits of the procedure were explained to the patient. The patient was taken to the procedure room where noninvasive monitoring was placed including noninvasive blood pressure cuff and pulse oximeter. Patient's pump was interrogated. The area over the pump was cleansed with chlorhexidine as a cleansing solution. In sterile fashion the pump was accessed with a 22-gauge needle. Approximately 2.5 mls of the pump solution was removed and discarded appropriately. The pump was then refilled with 20 mL's of Dilaudid 10 mg/mL. The needle was withdrawn and a bandage was placed over the puncture site. The infusion rate was reprogrammed and continued at Dilaudid 1.98 mg/day. The patient tolerated well with no complication. Plan and Disposition:: Patient tolerated his intrathecal refill and reprogram is no complications and was discharged neurologically intact. He will return to clinic on or before July 27, 2024.. We will see the patient back in the clinic at the next intrathecal refill. Patient has been instructed to contact the clinic with any concerns before the next appointment. Dr. Boyle has reviewed this note and agrees with this plan of care. This note was dictated using voice recognition software and make contain errors or omissions. -- It Is medically necessary for this patient to continue to have their intrathecal pump refilled at regular intervals. This patient had an intrathecal pain pump implanted after meeting criteria of chronic intractable pain for greater than 3 months and failing conservative treatments. Patient has committed and been compliant to the treatment plan and all planned follow up care. Since implantation of the intrathecal pain pump, the patient has had decreased pain and been more functional. Oral medications have been reduced including intake of oral opioids. Patient continues to do well with intrathecal therapy with decrease in pain symptoms and increase in functional status. Stopping intrathecal medications can lead to life threatening withdrawal, seizures, cardiac arrest, severe pain, and possible . Pumps that are not refilled at regular intervals can be damages and cause and need for replacement. We continually titrate dose and concentration to optimize pain relief and function. We are limited in concentration for certain drugs to safely deliver medications through the pump and stay within the recommendations from the Polyanalgesic Consensus Committee Guidelines. Depending on dose and concentration these pumps may need to be refilled sooner than 3 months as we titrate.
== END 2024-05-06 09:05 | disposition home or self-care (01) ==
PROVIDERS: PCP Internal Medicine Adolescent Medicine; Visit Provider Nurse Practitioner Family
DX: M96.1 Postlaminectomy syndrome, not elsewhere classified (principal); M51.36 Other intervertebral disc degeneration, lumbar region
CPT/HCPCS: 62370

== ENCOUNTER 2024-05-08 08:39 | Outpatient (CLI) | payer BC, SELFPAY ==
[2024-05-08 09:40] LABS: Hematocrit 56.1 % (42.0-52.0); Hemoglobin 17.3 g/dL (14.1-18.0)
[2024-05-08 09:47] VITALS: BP 139/77; PULSE 66; RESP 20; TEMP 36.4; O2SAT 95
[2024-05-08 10:00] VITALS: BP 146/81; PULSE 67; RESP 18; O2SAT 96
== END 2024-05-08 10:05 | disposition home or self-care (01) ==
LOC: INF 08:39
PROVIDERS: PCP Internal Medicine Adolescent Medicine; Visit Provider Internal Medicine Adolescent Medicine
DX: D45 Polycythemia vera (principal)
CPT/HCPCS: 36415; 85014; 85018; 99195

== ENCOUNTER 2024-05-15 07:53 | Outpatient (CLI) | payer BC, SELFPAY ==
[2024-05-15 08:11] VITALS: BMI 32.8
[2024-05-15 08:28] LABS: Hematocrit 52.7 % (42.0-52.0); Hemoglobin 16.2 g/dL (14.1-18.0)
--- NOTE | 2024-05-15 08:30 | PC.NURSE ---
0815-collected labs via venipuncture stick in left ac with butterfly needle;will wait on results if hgb >17 therapeutic phlebotomy to draw off 250ml.
--- NOTE | 2024-05-15 08:35 | PC.NURSE ---
0835-pt d/c home; hgb 16.2 no therapeutic phlebotomy today
== END 2024-05-15 08:35 | disposition home or self-care (01) ==
LOC: INF 07:53
PROVIDERS: PCP Internal Medicine Adolescent Medicine; Visit Provider Internal Medicine Adolescent Medicine
DX: D45 Polycythemia vera (principal)
CPT/HCPCS: 36415; 85014; 85018

== ENCOUNTER 2024-06-08 09:40 | Outpatient (CLI) | payer BC, SELFPAY ==
--- NOTE | 2024-06-08 09:51 | XR_ITS ---
FINAL REPORT CLINICAL HISTORY: PALPITATIONS PERIPHERAL EDEMA COMPARISON: 06/20/2023 FINDINGS: Two views of the chest were obtained. The heart size is enlarged. There is mild pulmonary vascular congestion. The mediastinum is normal. There are worsening left base opacities most likely representing atelectasis or pneumonia. There is no pneumothorax. Postoperative changes of the lower cervical spine and left shoulder are noted. IMPRESSION: Cardiomegaly and pulmonary vascular congestion. Worsening left base opacities most likely representing atelectasis or pneumonia. Reviewed, Interpreted and Dictated by Carlos Damian III, MD Transcribed by Kristen Diego Authenticated and [facility]
== END 2024-06-08 23:59 | disposition home or self-care (01) ==
PROVIDERS: PCP Internal Medicine Adolescent Medicine; Visit Provider Internal Medicine Adolescent Medicine
DX: R00.2 Palpitations (principal); R60.0 Localized edema
CPT/HCPCS: 71046; 93225; 93226

== ENCOUNTER 2024-06-17 13:43 | Outpatient (CLI) | payer BC, SELFPAY ==
--- NOTE | 2024-06-17 13:47 | CA_ITS ---
APPROVED REPORT EXAM: Comprehensive 2D, Doppler, and color-flow Echocardiogram Chemical Process Operator: Rhoda Leyva RVT Ht: 5 ft 8 in Wt: 220lbs BSA: 2.13 BP: 160/90 mmHg Indications: PALPS.EDEMA,ABN EKG,CP,HLD,EX SMOKER 2D Dimensions IVSd 0.87 cm M: 0.6-1.2 LVEF (Visual) 62.60 % PWd 1.06 cm M: 0.6 - 1.2 LA Volume 60.60 mL LVDd 3.24 cm M: 4.2 - 5.9 LA Volume Index 28.45 mL/m2 (M/F) 16-34 LVDs 2.18 cm M: 2.5 - 4.0 M-Mode Dimensions LA Diam 3.93 cm (1.9-4.0) TAPSE 3.25 (<1.7) LV Diastology E Decel Time 200 (160-240 msec) E/A Ratio 0.9 Aortic Valve BENNIE Index 1.17 cm2/m2 AoV Peak Guillermo. 241.0 (50-130 cm/s) AO Peak GR. 23.20 mmHg AO Mean GR. 12.50 (<5 mmHg) AO VTI 44.2 (18-25 cm) BENNIE (VTI) 2.55 (2.5-4.5 cm2) Mitral Valve MV E Max Guillermo. 92.0 (40-130 cm/s) MV A Velocity 102.0 (40-130 cm/s) E/A Ratio 0.90 MV Mean Gr. 2.60 (<2mmHg) MV PHT 59.0 ms Pulmonary Valve PV Peak Velocity 97.0 (50-150 cm/s) Left Ventricle The left ventricle is normal size. The left ventricular systolic function is hyperdynamic. There is normal left ventricular wall thickness. There is no LVOT obstruction at rest or with Valsalva. There is normal LV segmental wall motion. The left ventricular diastolic function is normal. LVEF is 70%. Right Ventricle The right ventricle is normal size. The right ventricular systolic function is normal. Atria The left atrium size is normal. The right atrium size is normal. There is no Doppler evidence of interatrial shunt. Aortic Valve The aortic valve opens well. There is no aortic valvular stenosis. No aortic regurgitation is present. Mitral Valve There is systolic anterior motion of the mitral valve leaflets. No evidence of mitral valve stenosis. Trace mitral regurgitation. Tricuspid Valve The tricuspid valve leaflets are thin and pliable. Trace tricuspid regurgitation. There is insufficient TR jet to estimate RVSP. Pulmonic Valve The pulmonary valve is normal in structure. Trace pulmonic regurgitation. Great Vessels The aortic root is normal in size. The ascending aorta is normal in size. IVC is normal in size and collapses >50% with inspiration. Pericardium There is no pericardial effusion. Other Information Study Quality: Fair Conclusion Hyperdynamic LV systolic function (LVEF 70%). Systolic anterior motion of the mitral valve leaflets. No LVOT obstruction at rest or with Valsalva. No significant valvular stenosis or regurgitation. Electronically signed by : Raeann Padilla MD 06/21/2024 01:07:04
== END 2024-06-17 23:59 | disposition home or self-care (01) ==
LOC: RT 13:44
PROVIDERS: PCP Internal Medicine Adolescent Medicine; Visit Provider Internal Medicine Adolescent Medicine
DX: R00.2 Palpitations (principal); R60.0 Localized edema
CPT/HCPCS: 93306

== ENCOUNTER 2024-07-21 10:05 | Day surgery (SDC) | payer OTHER, BC, SELFPAY ==
[2024-07-21 10:18] VITALS: BP 132/79; PULSE 62; RESP 16; TEMP 36.9; O2SAT 94; BMI 33.4
[2024-07-21 10:54] VITALS: BP 142/78; PULSE 62; RESP 18; O2SAT 94
[2024-07-21 10:55] VITALS: BP 142/78; PULSE 63; RESP 18; O2SAT 94
[2024-07-21 11:08] VITALS: BP 117/74; PULSE 61; RESP 16; O2SAT 95
--- NOTE | 2024-07-21 11:19 | EXP.PAIN.PRO ---
Procedure Date: 07/21/24 Time: 10:20 Anesthesiologist:: Nicolas Benítez CRNA Complications:: None Pre-procedure Diagnosis:: Degenerative disc lumbar spine multilevels. Lumbar radiculopathy. Lumbar postlaminectomy syndrome. Post-procedure Diagnosis:: Same. Indications for Procedure:: Patient is a very pleasant 63-year-old male who comes our clinic today for intrathecal pain pump interrogation and refill. Patient currently being managed with Dilaudid 10 mg/mL at 1.9800 mg/day. He is doing very well with his current settings. He is not requesting any changes. He is not reporting side effects or complications. Patient is awake alert [place] x 3. No acute distress. Flexion-extension lumbar spine somewhat guarded secondary to pain. Deep tendon reflexes upper lower extremities normal. Motor strength upper and lower extremities normal. There is no gross sensory deficit. Gait is normal. Procedure Details:: Details of the procedure explained to the patient. The patient taken procedure room placed in sitting position. The over the pump was cleansed using chlorhexidine as a cleansing solution. The pump was interrogated. The pump was accessed with ease using a 22-gauge inch and half needle. 6 mL of solution was withdrawn and discarded appropriate. The pump was then filled with 20 cc of solution containing Dilaudid 10 mg/mL. Pump rate will remain the same. 1.9800 mg/day. Patient tolerated procedure without difficulty. There are no complications. Plan and Disposition:: Patient was discharged without incident.
== END 2024-07-21 11:08 | disposition home or self-care (01) ==
PROVIDERS: PCP Internal Medicine Adolescent Medicine; Visit Provider Nurse Anesthetist, Certified Registered
DX: M51.16 Intervertebral disc disorders with radiculopathy, lumbar region (principal); M96.1 Postlaminectomy syndrome, not elsewhere classified
CPT/HCPCS: 95991

== ENCOUNTER → 2024-09-02 19:06 | Outpatient (CLI) | payer BC, SELFPAY | LOC: SL 19:08 | PROVIDERS: PCP Internal Medicine Adolescent Medicine; Visit Provider Specialist | DX: G47.31 Primary central sleep apnea (principal); G47.10 Hypersomnia, unspecified; G47.34 Idiopathic sleep related nonobstructive alveolar hypoventilation; Z68.36 Body mass index [BMI] 36.0-36.9, adult; Z86.73 Personal history of transient ischemic attack (TIA), and cerebral infarction without residual deficits; I10 Essential (primary) hypertension | CPT/HCPCS: 95811 ==

== ENCOUNTER 2024-09-29 10:25 | Day surgery (SDC) | payer OTHER, SELFPAY ==
[2024-09-29 11:27] VITALS: BP 151/85; PULSE 65; RESP 16; TEMP 36.7; O2SAT 95; BMI 36.0
--- NOTE | 2024-09-29 12:08 | EXP.PAIN.PRO ---
Procedure Date: 09/29/24 Time: 11:30 Anesthesiologist:: Nicolas Benítez CRNA Complications:: None Pre-procedure Diagnosis:: Degenerative disc lumbar spine multilevels. Lumbar radiculopathy. Lumbar postlaminectomy syndrome. Post-procedure Diagnosis:: Same. Indications for Procedure:: Patient is a pleasant 63-year-old male who comes our clinic today for intrathecal pain pump interrogation and refill. Patient currently being managed with Dilaudid 10 mg/mL at a rate of 1.9800 mg/day. He is reporting some increase in low back pain. Also, he reports the pump does not seem to be working to the extent it used to in terms of decreasing pain. He is requesting an increase in his rate today. I think this is reasonable. I will increasing by 20%. Also, his battery is reading low. I discussed with him the need to exchange the pump out along with the pump tubing due to age of the pump. He wishes to proceed. Will begin the paperwork and insurance clearance. Procedure Details:: Details of the procedure explained to the patient. The patient taken procedure and placed in the sitting position. They over the pump was cleansed using chlorhexidine as a cleansing solution. The pump was interrogated. The pump was accessed with ease using a 22-gauge inch and half needle. 10.5 mL solution was withdrawn discarded appropriately. The pump was then filled 20 cc of solution containing Dilaudid 10 mg/mL. The pump rate will be increased to 2.3760 mg/day. Patient tolerated procedure without difficulty. There are no complications. Plan and Disposition:: Patient was discharged without incident.
[2024-09-29 12:09] VITALS: BP 145/75; PULSE 79; RESP 16; TEMP 36.8; O2SAT 95
[2024-09-29 12:48] VITALS: BP 132/77; PULSE 83; RESP 18
[2024-09-29 12:50] VITALS: BP 132/77; PULSE 83; RESP 18
== END 2024-09-29 12:09 | disposition home or self-care (01) ==
LOC: SC.PAINP 10:26 → SC.PAIN 11:31
PROVIDERS: PCP Internal Medicine Adolescent Medicine; Visit Provider Nurse Anesthetist, Certified Registered
DX: M51.16 Intervertebral disc disorders with radiculopathy, lumbar region (principal); M96.1 Postlaminectomy syndrome, not elsewhere classified
CPT/HCPCS: 62370

== ENCOUNTER 2024-11-09 09:38 | Outpatient (POV) | payer OTHER, SELFPAY ==
[2024-11-09 09:55] VITALS: BP 142/93; PULSE 64; RESP 16; O2SAT 92; BMI 33.6
--- NOTE | 2024-11-09 09:57 | P.PCN_ITS ---
Procedure Date: 11/09/24 Time: 09:57 Anesthesiologist:: Kiley Moralez APRN Complications:: None Pre-procedure Diagnosis:: Degenerative disc disease of lumbar spine with lumbar radiculopathy symptoms Post-procedure Diagnosis:: Same Indications for Procedure:: Patient is a pleasant 64-year-old male who presents today for intrathecal adjustment and reprogram. He rates his pain today a 5 out of 10. He denies any new trauma or injury. He does state that he just feels like his pump still n eeds adjustment. He states towards the end of the night he always feels like his pain is much worse and does not feel like the pump is working as well. Patient is currently managed with Dilaudid 10 mg/mL with a daily dose of 2.376 mg/day. His Fazal has been reviewed and is appropriate. Physical Exam: General: Alert and oriented x3, no acute distress, pleasant and cooperative Lungs: Respirations even and unlabored, symmetrical chest expansion Eyes: PERRL Musculoskeletal: Flexion and extension of lumbar [spine] somewhat guarded secondary to pain, [antalgic gait noted] Neurological: Speech clear, no gross sensory deficit Procedure Details:: Informed consent was obtained and the risk and benefits of the procedure were explained to the patient. Patient did have noninvasive monitoring was placed including noninvasive blood pressure cuff and pulse oximeter. Patient's pump was interrogated and was reprogrammed to increase 20% to Dilaudid 2.8512 mg/day. The patient tolerated the procedure well with no complications. Plan and Disposition:: Patient tolerated the procedure well with no complications and was discharged neurologically intact. Patient will return to clinic in 2 weeks for possible additional adjustment and reprogram. We will see the patient back in the clinic at the next intrathecal refill. Patient has been instructed to contact the clinic with any concerns before the next appointment. Dr. Boyle has reviewed this note and agrees with this plan of care. This note was dictated using voice recognition software and make contain errors or omissions. -- It Is medically necessary for this patient to continue to have their intrathecal pump refilled at regular intervals. This patient had an intrathecal pain pump implanted after meeting criteria of chronic intractable pain for greater than 3 months and failing conservative treatments. Patient has committed and been compliant to the treatment plan and all planned follow up care. Since implantation of the intrathecal pain pump, the patient has had decreased pain and been more functional. Oral medications have been reduced including intake of oral opioids. Patient continues to do well with intrathecal therapy with decrease in pain symptoms and increase in functional status. Stopping intrathecal medications can lead to life threatening withdrawal, seizures, cardiac arrest, severe pain, and possible . Pumps that are not refilled at regular intervals can be damages and cause and need for replacement. We continually titrate dose and concentration to optimize pain relief and function. We are limited in concentration for certain drugs to safely deliver medications through the pump and stay within the recommendations from the Polyanalgesic Consensus Committee Guidelines. Depending on dose and concentration these pumps may need to be refilled sooner than 3 months as we titrate. A UDS is needed to verify patient's compliance with our office pain contract. This is ordered based off specific treatments related to chronic pain with the potential to abuse certain medications.
== END 2024-11-09 23:59 | disposition home or self-care (01) ==
PROVIDERS: PCP Internal Medicine Adolescent Medicine; Visit Provider Nurse Practitioner Family
DX: M51.16 Intervertebral disc disorders with radiculopathy, lumbar region (principal)
CPT/HCPCS: 62368; 99213; G0463

== ENCOUNTER 2024-11-27 08:45 | Day surgery (SDC) | payer OTHER, BC, SELFPAY ==
--- NOTE | 2024-11-27 08:49 | P.PCN_ITS ---
Procedure Date: 11/27/24 Time: 09:19 Anesthesiologist:: Kiley Moralez APRN Complications:: None Pre-procedure Diagnosis:: Degenerative disc disease of lumbar spine with lumbar radiculopathy symptoms Post-procedure Diagnosis:: Same Indications for Procedure:: Patient is a pleasant 64-year-old male who presents today for intrathecal refill and reprogram. Today he rates his pain a 3 or 4 out of 10. He denies any new trauma or injury. Patient is currently managed with Dilaudid 2 mg/mL with a daily dose of 2.8512 mg/day. He denies any side effects from this medication. He is requesting a small increase if possible.His Fazal has been reviewed and is appropriate. Physical Exam: General: Alert and oriented x3, no acute distress, pleasant and cooperative Lungs: Respirations even and unlabored, symmetrical chest expansion Eyes: PERRL Musculoskeletal: Flexion and extension of lumbar [spine] somewhat guarded secondary to pain, [antalgic gait noted] Neurological: Speech clear, no gross sensory deficit Procedure Details:: Informed consent was obtained and the risk and benefits of the procedure were explained to the patient. The patient had noninvasive monitoring placed including noninvasive blood pressure cuff and pulse oximeter. Patient's pump was interrogated. The area over the pump was cleansed with chlorhexidine as a cleansing solution. In sterile fashion the pump was accessed with a 22-gauge needle. Approximately 4.8 mls of the pump solution was removed and discarded appropriately. The pump was then refilled with 20 mL's of Dilaudid 10 mg/mL. The needle was withdrawn and a bandage was placed over the puncture site. The infusion rate was reprogrammed and increased 10% to Dilaudid 3.1356 mg/day. The patient tolerated well with no complication. Plan and Disposition:: Patient tolerated the procedure well with no complications and was discharged neurologically intact. Patient is scheduled to have his pump replaced in November. I did addictions counselor assistant him that we will be decreasing down his current dosage when we do replace the pump as the new devices do seem to be much more efficient. Patient acknowledges understanding agrees with plan of care. Patient will be given a 1 week postop visit following his December 11 surgical date. We will see the patient back in the clinic at the next intrathecal refill. Patient has been instructed to contact the clinic with any concerns before the next appointment. Dr. Boyle has reviewed this note and agrees with this plan of care. This note was dictated using voice recognition software and make contain errors or omissions. -- It Is medically necessary for this patient to continue to have their intrathecal pump refilled at regular intervals. This patient had an intrathecal pain pump implanted after meeting criteria of chronic intractable pain for greater than 3 months and failing conservative treatments. Patient has committed and been compliant to the treatment plan and all planned follow up care. Since implant ation of the intrathecal pain pump, the patient has had decreased pain and been more functional. Oral medications have been reduced including intake of oral opioids. Patient continues to do well with intrathecal therapy with decrease in pain symptoms and increase in functional status. Stopping intrathecal medications can lead to life threatening withdrawal, seizures, cardiac arrest, severe pain, and possible . Pumps that are not refilled at regular intervals can be damages and cause and need for replacement. We continually titrate dose and concentration to optimize pain relief and function. We are limited in concentration for certain drugs to safely deliver medications through the pump and stay within the recommendations from the Polyanalgesic Consensus Committee Guidelines. Depending on dose and concentration these pumps may need to be refilled sooner than 3 months as we titrate. A UDS is needed to verify patient's compliance with our office pain contract. This is ordered based off specific treatments related to chronic pain with the potential to abuse certain medications.
[2024-11-27 09:14] VITALS: BP 155/93; PULSE 61; RESP 18; O2SAT 95
[2024-11-27 09:15] VITALS: BP 128/77; PULSE 56; RESP 16; TEMP 36.6; O2SAT 96; BMI 31.3
[2024-11-27 09:16] VITALS: BP 155/93; PULSE 59; RESP 18; O2SAT 95
[2024-11-27 09:26] VITALS: BP 120/80; PULSE 64; RESP 16; O2SAT 99
== END 2024-11-27 09:26 | disposition home or self-care (01) ==
PROVIDERS: PCP Internal Medicine Adolescent Medicine; Visit Provider Nurse Practitioner Family
DX: M51.16 Intervertebral disc disorders with radiculopathy, lumbar region (principal)
CPT/HCPCS: 62370

== ENCOUNTER 2024-12-09 14:10 | Outpatient (CLI) | payer OTHER, SELFPAY ==
[2024-12-09 14:42] LABS: Basophils # 0.1 K/mm3 (0-0.2); Basophils % 1.1 % (0.1-2.0); Eosinophils # 0.3 K/mm3 (0.0-0.4); Eosinophils % 3.4 % (0.1-12.0); Hematocrit 52.8 % (42.0-52.0); Hemoglobin 17.1 g/dL (14.1-18.0); Lymphocytes # 1.6 K/mm3 (0.7-4.5); Lymphocytes % 18.9 % (10-50); Mean Corpuscular HGB Conc 32.4 g/dL (31.8-35.4); Mean Corpuscular Hemoglobin 26.3 pg (27.0-31.2); Mean Corpuscular Volume 81.1 fl (80-94); Mean Platelet Volume 10.5 fl (7.4-10.4); Monocytes # 0.8 K/mm3 (0.1-1.0); Monocytes % 9.1 % (1.7-9.3); Neutrophils # 5.5 K/mm3 (1.8-7.8); Neutrophils % 66.9 % (37.0-80.0); Platelet Count 231 K/mm3 (142-424); Red Blood Count 6.51 M/mm3 (4.60-6.20); Red Cell Distribution Width 16.4 % (11.5-17.5); White Blood Count 8.3 K/mm3 (4.8-10.8)
[2024-12-09 15:29] LABS: Anion Gap 12.5 mEq/L (5-15); Blood Urea Nitrogen 20 mg/dl (9-20); Calcium 9.7 mg/dl (8.4-10.2); Carbon Dioxide 33 mmol/L (22.0-30.0); Chloride 98 mmol/L (98-107); Estimated Glomerular Filt Rate 61 ml/min (>60); GFR (African American) 74 ML/MIN (>60); Glucose 91 mg/dl (74-100); Potassium 4.5 mmoL/L (3.5-5.1); Sodium 139 mmol/L (136-145)
== END 2024-12-09 23:59 | disposition home or self-care (01) ==
LOC: LAB 14:12
PROVIDERS: PCP Internal Medicine Adolescent Medicine; Visit Provider Anesthesiology
DX: Z01.818 Encounter for other preprocedural examination (principal)
CPT/HCPCS: 36415; 80048; 85025

== ENCOUNTER 2024-12-22 08:39 | Day surgery (SDC) | payer BC, SELFPAY ==
[2024-12-22 08:58] VITALS: BP 129/76; PULSE 66; RESP 16; TEMP 36.6; O2SAT 95; BMI 34.5
[2024-12-22 09:01] VITALS: BP 134/82; PULSE 64; RESP 18; O2SAT 92
[2024-12-22 09:06] VITALS: BP 134/82; PULSE 64; RESP 18; O2SAT 92
--- NOTE | 2024-12-22 09:21 | MR_ITS ---
FINAL REPORT TECHNIQUE: Multiplanar and multisequence imaging of the lumbar spine was obtained without contrast. CLINICAL HISTORY: prior hx of back surgery in 2018 numbness and burning in left foot pt also has pain pump COMPARISON: 01/23/2017 FINDINGS: There is rather significant susceptibility artifact posteriorly at the level of L4-S1 from surgical hardware. Alignment in the sagittal plane appears preserved. There is likely mild dextroscoliosis of L1. The spinal cord ends at the level of L1. There is normal signal intensity within the substance of the distal spinal cord. Bone marrow signal of L1-L3 appears normal. L4 and L5 are obscured. No acute paraspinal abnormality is identified. L1-2: There is no focal disc herniation, central canal stenosis or neuroforaminal narrowing. L2-3: Annular++ no central canal stenosis. Mild to moderate bilateral neuroforaminal narrowing. L3-4: Annular disc bulge with degenerative endplate changes and facet osteoarthropathy. Probable moderate central canal stenosis. Likely moderate bilateral neuroforaminal narrowing. L4-5: Fusion. Otherwise, cannot be evaluated L5-S1: Limited by artifact, cannot be evaluated IMPRESSION: Artifact from posterior hardware significantly limits evaluation of the lower lumbar spine. Degenerative disc disease upper lumbar spine with central canal and foraminal stenosis at L3-4 Reviewed, Interpreted and Dictated by Jodie Lilly MD Transcribed by Carol Berger Authenticated and . [facility]
[2024-12-22 10:48] VITALS: BP 141/79; PULSE 70; RESP 18; O2SAT 94
[2024-12-22 10:49] VITALS: BP 141/79; PULSE 71; RESP 18; O2SAT 94
[2024-12-22 11:02] VITALS: BP 141/86; PULSE 72; RESP 16; O2SAT 97
--- NOTE | 2024-12-22 11:34 | EXP.PAIN.PRO ---
Procedure Date: 12/22/24 Time: 08:30 Anesthesiologist:: Nicolas Benítez CRNA Complications:: None Pre-procedure Diagnosis:: Degenerative disc lumbar spine multilevels. Lumbar radiculopathy. Post-procedure Diagnosis:: Same. Indications for Procedure:: Patient very pleasant 64-year-old male who comes our clinic today for intrathecal pain pump medication removal for purpose of MRI lumbar spine. Patient will return after MRI for refill. Procedure Details:: Details of the procedure explained to the patient. The patient taken procedure and placed in the seated position. They over the pumps cleansed using chlorhexidine as a cleansing solution. The pump was interrogated. The pump was accessed with ease. The pump was emptied for total of 14 mL. The patient currently is managed with Dilaudid 10 mg/mL at a rate of 3.1356 mg/day. Patient returned from lumbar MRI. Pump was accessed with ease. The pump was refilled with Dilaudid 14 mL. Patient will continue with pump rate of 3.1356 mg/day. Plan and Disposition:: Patient was discharged without incident.
== END 2024-12-22 11:02 | disposition home or self-care (01) ==
LOC: SC.PAIN 08:40
PROVIDERS: PCP Internal Medicine Adolescent Medicine; Visit Provider Nurse Anesthetist, Certified Registered
DX: M51.16 Intervertebral disc disorders with radiculopathy, lumbar region (principal)
CPT/HCPCS: 62370; 72148

== ENCOUNTER 2025-01-05 09:07 | Outpatient (CLI) | payer BC, SELFPAY ==
--- NOTE | 2025-01-05 10:00 | US_ITS ---
FINAL REPORT CLINICAL HISTORY: .pt has palp area rt test FINDINGS: SCROTAL ULTRASOUND FINDINGS: Testes have a homogeneous architecture. No masses are seen. Normal flow is demonstrated by Doppler exam. No significant fluid collections are present. Epididymal structures are unremarkable. There is enlargement of the right epididymal tail with a heterogeneous appearance which could be related to epididymitis or an epididymal mass. The left epididymis is unremarkable. There is no evidence of hydrocele. IMPRESSION: No evidence of testicular mass or torsion. Enlarged right epididymis could represent epididymitis or an epididymal mass. 3-month follow-up ultrasound is recommended. Reviewed, Interpreted and Dictated by Brittney Hoff MD Transcribed by Paradise Gupta Authenticated and [facility]
--- OUTSIDE RECORDS SUMMARY | 2025-01-07 20:51 | XMS_ITS | Data Portability ---
Author Organization [facility] & Allie WOLF ADMIN Address [address] [place] [phone] Assessment No assessment recorded. Plan of Treatment Reminders Order Date Submit Date Provider Last Modified By Organization Details Last Modified Time Details Appointments None recorded. Lab urinalysis , dipstick 2022 023 [email or web address] [facility], [address] [place] [address], [phone], 12:16:45 Referral None recorded. Procedures None recorded. Surgeries None recorded. Imaging None recorded. Medication Orders None recorded. Patient TargetsNo targets recorded. Patient InstructionsNo instructions recorded. Reason for Referral None Reported. Results Created Date Observation Date Name Description Value Unit Range Abnormal Flag Note LastModifiedBy Organization Detail LastModifiedTime 01/16/2001/15/2023 urina lysis , dipst ick Leukocytes (reference range) negati ve Not Available [address], [address], 01/15/2023 11:27:00 01/16/20 23 01/15/2023 urina lysis , dipst ick Nitrite (reference range:) negati ve Not Available [address], [address], 01/15/2023 11:27:00 01/16/20 23 01/15/2023 urina lysis , dipst ick Urobilinogen (reference range) 0.2 Not Available [facility] [address] [place], [place] [address], [place], [address], 01/15/2023 11:27:00 01/16/20 23 01/15/2023 urina lysis , dipst ick Protein (reference range) negati ve Not Available [facility] [address] [place] [address] [address], [place], [address], 01/15/2023 11:27:00 01/16/20 23 01/15/2023 urina lysis , dipst ick pH (reference range 5-8.5) 5.0 Not Available [facility] [address] [place] [address] [address], [place], [address], 01/15/2023 11:27:00 01/16/20 23 01/15/2023 urina lysis , dipst ick Blood (reference range:) negati ve Not Available [address], [place], [address], 01/15/2023 11:27:00 01/16/20 23 01/15/2023 urina lysis , dipst ick Specific [place] (reference range) 1.015 Not Available [facility], [place], [address], 01/15/2023 11:27:00 01/16/20 23 01/15/2023 urina lysis , dipst ick Ketone (reference range) negati ve Not Available [address], [place], [address], 01/15/2023 11:27:00 01/16/20 23 01/15/2023 urina lysis , dipst ick Bilirubin (reference range) negati ve Not Available [address], [place], [address], 01/15/2023 11:27:00 01/16/20 23 01/15/2023 urina lysis , dipst ick Glucose (reference range) negati ve Not Available [facility] [address] [facility] [address], [place], [address], 01/15/2023 11:27:00 01/16/2001/15/2023 urina lysis , dipst ick Color (reference range: yellow-brown ) Yellow Not Available [facility] [address] [facility] [address], [place], [address], 01/15/2023 11:27:00 Result Notes None recorded. Medical Equipment None Reported. Medications Name Sig Start Date Stop Date Status Note LastModified by Organization Details LastModified Time amlodipine 5 mg tablet TAKE ONE TABLET BY MOUTH EVERY DAY active Not Available Not Available No t Available sulfamethoxa zole 800 mg-trimethop rim 160 mg tablet TAKE ONE TABLET BY MOUTH TWICE DAILY FOR FOURTEEN DAYS -- FINISH ALL MEDICINE -- active Not Available Not Available Not Available Hypodermic [place] 23 gauge x 1 USE DIRECTED TO inject testosteron e active Not Available Not Available No t Available amlodipine 10 mg tablet TAKE ONE TABLET BY MOUTH EVERY DAY active Not Available Not Available No t Available BD Luer-Gelacio Syringe 3 mL 25 gauge x 1 USE DIRECTED TO inject testosteron e intramuscul ar active Not Available Not Available No t Available omeprazole 20 mg capsule,ric yed release TAKE ONE CAPSULE BY MOUTH EVERY DAY active Not Available Not Available No t Available hydrochlorot hiazide 25 mg tablet TAKE ONE TABLET BY MOUTH EVERY DAY active Not Available Not Available No t Available mupirocin 2 % topical ointment APPLY TOPICALLY TO THE AFFECTED AREA(S) THREE TIMES DAILY FOR 7 DAYS -- FOR EXTERNAL USE ONLY-- active Not Available Not Available N ot Available testosterone cypionate 200 mg/mL intramuscula r oil INJECT 1 ML INTRAMUSCUL CRISTIAN ONCE A WEEK active Not Available Not Available No t Available methylpredni solone 4 mg tablets in a dose pack TAKE ACCORDING TO PACKAGE INSTRUCTION S --TAKE WITH FOOD-- -- FINISH ALL MEDICINE -- active Not Available Not Available Not Available BD Luer-Gelacio Syringe 3 mL 18 x 1 1/2 USE as directed TO INJECT TESTOSTERON E active Not Available Not Available No t Available losartan 100 mg tablet TAKE ONE TABLET BY MOUTH EVERY DAY active Not Available Not Available No t Available escitalopram 10 mg tablet TAKE ONE TABLET BY MOUTH EVERY DAY active Not Available Not Available No t Available rosuvastatin 5 mg tablet TAKE ONE TABLET BY MOUTH EVERY DAY active Not Available Not Available No t Available tadalafil 5 mg tablet TAKE ONE TABLET BY MOUTH EVERY DAY active Not Available Not Available No t Available chlorhexidin e gluconate 0.12 % mouthwash FILL SUPPLIED CUP (1/2 OUNCE); SWISH IN MOUTH FOR 30 SECONDS TWICE DAILY (AFTER BREAKFAST & BEFORE BEDTIME). SWISH THEN EXPEL REMAINDER OR USE DIRECTED active Not Available Not Available No t Available cholecalcife rol (vitamin D3) 1,250 mcg (50,000 unit) capsule TAKE ONE CAPSULE BY MOUTH ONCE A WEEK active Not Available Not Available No t Available BD Regular Bevel [place] 22 gauge x 1 USE DIRECTED TO inject testosteron e active Not Available Not Available No t Available Vitals Date Recorded Body height Body mass index (BMI) Body weight Body temperature Systolic blood pressure Diastolic blood pressure Provider Name and Address Organization Details Last Updated DateTime 3 172.72 cm 30.4 kg/m2 13641.4 7 g 98 [degF] 130 mm[Hg] 72 mm[Hg] Keesha [facility] & [place] 3 11:21:37 Social History None recorded. Functional Status None recorded. Mental Status None recorded. Family History Nothing Reported. Medical History No medical history recorded. Past Encounters Encounter ID Performer Location Encounter Start Date Encounter Closed Date Diagnosis/Indication Diagnosis SNOMED-CT Code Diagnosis ICD10 Code Diagnosis Note [id number] Rhoda Calvert NP, [facility] [address] [facility] [place] [address] 01/15/2023 10:35:22 01/15/2023 11:35:07 History of malignant neoplasm of prostate 907929667 Z85.[address] Solitario office to get PSA resultsRTC in 1 year for f/u Nocturia 418955077 R35.1 Erectile dysfunction 860 [id number] F52.21 Health Concerns Section Related Observation LastModified by Organization Detai ls LastModified Time None Recorded Concern Status LastModified by Organization Details LastModified Time None Recorded Advance Directives Directive None Recorded Payers None recorded. Notes Date Note Type Note Provider Name and Address Organization Details Recorded Time 01/15/2023 text/html 60yowm RTC for annual f/u of h/o CAP. Pt was last seen on 08/30/2021. Pt underwent RRP on 05/13/[address] Herrera in [place]. Reports Dr Jeffries did PSA in Oct 2022, states was undectable. States urinary stream is good. Nocturia x2. Denies any dysuria, gross hematuria, wt loss, or bone pain. Pt is on Cialis 5mg daily r/t ED. Reports the medication is effective without any overt SEs. Pt is on Testosterone injections 1cc every other week overseen by Dr Jeffries. Rhoda Calvert NP, [address], [place], [address], [facility] - [place] & [place] 01/15/2023 11:36:03
== END 2025-01-05 23:59 | disposition home or self-care (01) ==
PROVIDERS: PCP Internal Medicine Adolescent Medicine; Visit Provider Urology
DX: N45.1 Epididymitis (principal)
CPT/HCPCS: 76870

== ENCOUNTER 2025-01-12 13:20 | Outpatient (CLI) | payer OTHER, SELFPAY ==
--- OUTSIDE RECORDS SUMMARY | 2025-01-12 13:24 | XMS_ITS | Data Portability ---
Author Organization [facility] & Allie WOLF ADMIN Address [address] [place] [phone] Assessment No assessment recorded. Plan of Treatment Reminders Order Date Submit Date Provider Last Modified By Organization Details Last Modified Time Details Appointments None recorded. Lab urinalysis , dipstick 2022 023 [email or web address] [facility], [address] [place] [address], [phone], 12:16:45 Referral None recorded. Procedures None recorded. Surgeries None recorded. Imaging None recorded. Medication Orders None recorded. Patient TargetsNo targets recorded. Patient InstructionsNo instructions recorded. Reason for Referral None Reported. Results Created Date Observation Date Name Description Value Unit Range Abnormal Flag Note LastModifiedBy Organization Detail LastModifiedTime 01/16/2001/15/2023 urina lysis , dipst ick Leukocytes (reference range) negati ve Not Available [address], [address], 01/15/2023 11:27:00 01/16/20 23 01/15/2023 urina lysis , dipst ick Nitrite (reference range:) negati ve Not Available [address], [address], 01/15/2023 11:27:00 01/16/20 23 01/15/2023 urina lysis , dipst ick Urobilinogen (reference range) 0.2 Not Available [facility] [address] [place], [place] [address], [place], [address], 01/15/2023 11:27:00 01/16/20 23 01/15/2023 urina lysis , dipst ick Protein (reference range) negati ve Not Available [facility] [address] [place] [address] [address], [place], [address], 01/15/2023 11:27:00 01/16/20 23 01/15/2023 urina lysis , dipst ick pH (reference range 5-8.5) 5.0 Not Available [facility] [address] [place] [address] [address], [place], [address], 01/15/2023 11:27:00 01/16/20 23 01/15/2023 urina lysis , dipst ick Blood (reference range:) negati ve Not Available [address], [place], [address], 01/15/2023 11:27:00 01/16/20 23 01/15/2023 urina lysis , dipst ick Specific [place] (reference range) 1.015 Not Available [facility], [place], [address], 01/15/2023 11:27:00 01/16/20 23 01/15/2023 urina lysis , dipst ick Ketone (reference range) negati ve Not Available [address], [place], [address], 01/15/2023 11:27:00 01/16/20 23 01/15/2023 urina lysis , dipst ick Bilirubin (reference range) negati ve Not Available [address], [place], [address], 01/15/2023 11:27:00 01/16/20 23 01/15/2023 urina lysis , dipst ick Glucose (reference range) negati ve Not Available [facility] [address] [facility] [address], [place], [address], 01/15/2023 11:27:00 01/16/2001/15/2023 urina lysis , dipst ick Color (reference range: yellow-brown ) Yellow Not Available [facility] [address] [facility] [address], [place], [address], 01/15/2023 11:27:00 Result Notes None recorded. Medical [...] Not Available Not Available Not Available Hypodermic [place] 23 gauge x 1 USE DIRECTED TO [...] Available No t Available BD Regular Bevel [place] 22 gauge x 1 USE DIRECTED TO inject testosteron e active Not Available Not Available No t Available Vitals Date Recorded Body height Body mass index (BMI) Body weight Body temperature Systolic blood pressure Diastolic blood pressure Provider Name and Address Organization Details Last Updated DateTime 3 172.72 cm 30.4 kg/m2 97293.4 7 g 98 [degF] 130 mm[Hg] 72 mm[Hg] Keesha [facility] & [place] 3 11:21:37 Social History None recorded. Functional Status None recorded. Mental Status None recorded. Family History Nothing Reported. Medical History No medical history recorded. Past Encounters Encounter ID Performer Location Encounter Start Date Encounter Closed Date Diagnosis/Indication Diagnosis SNOMED-CT Code Diagnosis ICD10 Code Diagnosis Note [id number] Rhoda Calvert NP, S [facility] [address] [facility] [place] [address] 01/15/2023 10:35:22 01/15/2023 11:35:07 History of malignant neoplasm of prostate [id number] Z85.[address] Solitario office to get PSA resultsRTC in 1 year for f/u Nocturia 615083732 R35.1 Erectile dysfunction 860 139753 F52.21 Health Concerns Section Related Observation LastModified [...] RRP on 05/13/[address] Herrera in [place]. Reports Dr Jeffries did PSA in Oct 2022, states was undectable. States urinary stream is good. Nocturia x2. Denies any dysuria, gross hematuria, wt loss, or bone pain. Pt is on Cialis 5mg daily r/t ED. Reports the medication is effective without any overt SEs. Pt is on Testosterone injections 1cc every other week overseen by Dr Jeffries. Rhoda Calvert NP, [address], [place], [address], [facility] [place] & [place] 01/15/2023 11:36:03
--- NOTE | 2025-01-12 13:59 | PC.NURSE ---
per RFeeback, CREDIT CARD CLERK and MD Boyle- pt is fine to proceed with surgery on01/15/25 without redrawing labs (last draw was 12/09/24). EKG not ordered during PAT visit d/t pt having and EKG done in MD Staples's office on 01/11/25. EKG NSR and in chart
[2025-01-12 14:00] VITALS: BMI 35.2
== END 2025-01-12 23:59 | disposition home or self-care (01) ==
LOC: PREOP 13:21
PROVIDERS: PCP Internal Medicine Adolescent Medicine; Visit Provider Anesthesiology
DX: R69 Illness, unspecified (principal)

== ENCOUNTER 2025-01-15 06:28 | Day surgery (SDC) | payer OTHER, BC, SELFPAY ==
--- NOTE | 2025-01-05 13:13 | PC.NURSE ---
Pt no-show for PAT appt today - left VM for pt requesting call. Dr. Boyle's office notified.
[2025-01-12 14:01] VITALS: BMI 35.2
[2025-01-15] VITALS (13 sets, daily range): BP systolic 124–151; BP diastolic 44–88; PULSE 67–85; RESP 12–16; TEMP 36.1–38; O2SAT 92–96
[2025-01-15] MEDS: LACTATED RINGERS 1000ML 1,000 ML 25 ML IV (07:00)
--- NOTE | 2025-01-15 07:26 | EXP.ANES.CKL ---
[facility] Disclaimer: The information contained in this section may have been updated after the patient was seen, as this information can be updated by other users. Medical History Prostate cancer Stroke Surgical History H/O knee surgery 3 ON LEFT 2 ON RIGHT History of left knee replacement H/O neck surgery X2 History of prostatectomy 2013, Dr. 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 current occupational exposures/hazards: No caffeine: Yes Have you lived/traveled outside US in past 30 days?: No Contact w/someone who lives/traveled outside US past 30 days?: No Exposure to someone with infectious disease in past 14 days?: No Do you have a fever (greater than 100.4 F or 38 C)?: No Have you tested positive for COVID-19: No Exposed to someone with COVID-19 in past 14 days?: No Do you have a sore throat?: No Do you have a cough?: No Do you have any weakness?: No Do you have any diarrhea?: No Are you experiencing any unusual bleeding?: No Do you have any muscle aches/pain?: No Do you have any abdominal pain?: No Are you experiencing loss of taste or smell?: No [facility] Anesthesia Checklist Patient Identification Patient Identification: Verbal (Name & ) Structural Data Admitted From: Home Planned Operative Procedure/s: Pain pump replacement NPO Status Verified Time NPO: 00:00 Chart Verification Results Verified: CBC and BMP Additional verifications Anesthesia Reactions: No Hx Blood Transfusions: No Blood Transfusion Reaction: No Cephalosporin Allergy: No Previous Colonoscopy: Yes Airway Assessment Mallampati Score:: Class III C-Spine Mobility Assessed: Yes TMJ Mobility Assessed: Yes Dentition: Good Dentition Neurological Assessment Level of Consciousness: Awake, Alert and Appropriate Hx Seizures: No Numbness or tingling in extremities: No Anesthesia Plan Anesthesia Risk discussed: Yes Anesthesia Plan: Verified ASA Class: III Anesthesia Type: MAC
[2025-01-15] MEDS: VANCOMYCIN HCL 2,000 MG in 0.9 % SODIUM CHLORIDE 250 ML 125 MG IV (09:00)
[2025-01-15] MEDS: GENTAMICIN 80 MG/2 ML VIAL (09:35)
[2025-01-15] MEDS: SODIUM CHLORIDE 0.9% 20ML VIAL 40 ML IV (09:35)
[2025-01-15] MEDS: LIDOCAINE 1% W/EPI 1:100,000 20ML VIAL 40 ML (09:57)
--- NOTE | 2025-01-15 10:40 | EXP.OP.NOTE ---
Date of procedure: 01/15/25 Pre-op Diagnosis:: Nonfunctioning intrathecal pain pump system Post-op Diagnosis:: Same Procedure performed:: Replacement pain pump system with new tunneled intrathecal catheter replacement pain pump generator Surgeon:: Pacheco Boyle MD SUPERVISOR WELDING EQUIPMENT REPAIRER:: Other (Emery) Anesthesia: MAC Estimated blood loss (mL): 5 Clinical Note:: The patient is a pleasant 64-year-old white male who has a nonfunctioning Flowonix pain pump system in place. Will replace his pain pump system today with a new tunneled intrathecal cath and replacement of his pain pump generator. Operative findings:: None Operative note:: Informed consent was obtained risk and benefits of the procedure were explained to the patient. The patient was taken the operating room placed prone on the procedure table. He was prepped and draped in sterile fashion. The skin and subcutaneous tissues overlying the pain pump generator were anesthetized using lidocaine. I made an incision dissected out the pain pump generator. I disconnected the catheter and tied off with 0 silk ties x 3. C-arm fluoroscopy was used to view the lumbar spine. The skin and subcutaneous tissues adjacent to the L4-5 and L5-S1 interspace were anesthetized using lidocaine. I made an incision dissected down to the lumbar paraspinous fascia. A 17-gauge spinal needle was inserted and advanced into the L5-S1 interspace until clear CSF was obtained. After this intrathecal catheter was inserted and advanced very easily to the T8 vertebral body. The catheter was in good position. It was posterior and midline. The stylette of the catheter and the needle were withdrawn. The catheter was secured to the fascia with an anchoring device and 2-0 Prolene. I filled the pump with 20 mL of intrathecal hydromorphone 5 mg/mL. I tunneled the catheter from the back to the pump pocket attached catheter to the pump. We are able to freely withdraw clear CSF through the sideport. The pump was then placed in the pocket. Both incisions were closed with 2-0 Vicryl followed by 4-0 nylon and michelle. Patient was placed in an abdominal binder and taken recovery in stable condition. The patient tolerated the procedure well with no complications. Pump was interrogated and started at 2.5 mg/day with PTM boluses of 0.25 mg up to 4 times a day. Refill date is 02/08/2025. Plan and disposition: Will follow-up with this patient in 1 week for wound check and reprogramming. Will follow-up in 2 to 3 weeks for suture and staple removal. At his refill we may need to increase concentration to 10 mg/mL. Condition: stable Disposition: PACU Complications:: none
--- NOTE | 2025-01-15 10:56 | SUR.PHASEI ---
pt incontinent of urine. pt given complete bed change, new gownand warm blankets. no complaints at this time
--- NOTE | 2025-01-15 13:37 | EXP.ANES.II ---
[facility] Anesthesia Record Part II Anesthesia Record Part II Discharge Time: 11:11 Destination: Surgical Day Care (OP Surgery) PACU nurse assessment reviewed?: Yes Patient Condition:: Good Anesthesia Complications:: None Swallowing reflex intact?: Yes Airway Patency: Patent Cyanosis?: No Blood Pressure: 146/88 SaO2: 93 Respiratory Rate: 15 Pulse Rate: 76 Temperature: 97.4 F Mental Status: Alert & Oriented Pain level:: 4 Nausea and/or vomitting:: None Intake, IV Amount: 0 Hydration: Adequate
--- NOTE | 2025-01-15 14:17 | EXP.ANES.I ---
[facility] Anesthesia Record Part I Anesthesia Record I Intake, IV Amount: 700 Hydration: Adequate Estimated blood loss (mL): 0 Urine output (mL): 0 Blood Products used (#): none Blood Pressure: 145/72 SaO2: 95 Pulse Rate: 85 Airway Patency: Patent Respiratory Rate: 14 Temperature: 97 F Patient is:: Drowsy, Nasal O2 and Stable Stable to PACU at:: 10:11
== END 2025-01-15 12:20 | disposition home or self-care (01) ==
PROVIDERS: PCP Internal Medicine Adolescent Medicine; Visit Provider Anesthesiology
PROC: (CPT 62350; principal; 2025-01-15 07:30)
DX: T85.695A Other mechanical complication of other nervous system device, implant or graft, initial encounter (principal); Y75.3 Surgical instruments, materials and neurological devices (including sutures) associated with adverse incidents; M54.50 Low back pain, unspecified
CPT/HCPCS: 62350; 62362; 96374; C1755; C1772; J1100; J1200; J1580; J2003; J2004; J2250; J2405; J2704; J3010; J3370; J7050; J7120

== ENCOUNTER 2025-01-22 13:41 | Outpatient (POV) | payer OTHER, BC, SELFPAY ==
--- OUTSIDE RECORDS SUMMARY | 2025-01-22 13:45 | XMS_ITS | Data Portability ---
Author Organization [facility] & Allie WOLF ADMIN Address [address] [place] [phone] Assessment No assessment recorded. Plan of Treatment Reminders Order Date Submit Date Provider Last Modified By Organization Details Last Modified Time Details Appointments None recorded. Lab urinalysis , dipstick 2022 023 [email or web address] [facility], [address] [place] [address], [phone], 12:16:45 Referral None recorded. Procedures None recorded. Surgeries None recorded. Imaging None recorded. Medication Orders None recorded. Patient TargetsNo targets recorded. Patient InstructionsNo instructions recorded. Reason for Referral None Reported. Results Created Date Observation Date Name Description Value Unit Range Abnormal Flag Note LastModifiedBy Organization Detail LastModifiedTime 01/16/2001/15/2023 urina lysis , dipst ick Leukocytes (reference range) negati ve Not Available [address], [address], 01/15/2023 11:27:00 01/16/20 23 01/15/2023 urina lysis , dipst ick Nitrite (reference range:) negati ve Not Available [address], [address], 01/15/2023 11:27:00 01/16/20 23 01/15/2023 urina lysis , dipst ick Urobilinogen (reference range) 0.2 Not Available [facility] [address] [place], [place] [address], [place], [address], 01/15/2023 11:27:00 01/16/20 23 01/15/2023 urina lysis , dipst ick Protein (reference range) negati ve Not Available [facility] [address] [place] [address] [address], [place], [address], 01/15/2023 11:27:00 01/16/20 23 01/15/2023 urina lysis , dipst ick pH (reference range 5-8.5) 5.0 Not Available [facility] [address] [place] [address] [address], [place], [address], 01/15/2023 11:27:00 01/16/20 23 01/15/2023 urina lysis , dipst ick Blood (reference range:) negati ve Not Available [address], [place], [address], 01/15/2023 11:27:00 01/16/20 23 01/15/2023 urina lysis , dipst ick Specific [place] (reference range) 1.015 Not Available [facility], [place], [address], 01/15/2023 11:27:00 01/16/20 23 01/15/2023 urina lysis , dipst ick Ketone (reference range) negati ve Not Available [address], [place], [address], 01/15/2023 11:27:00 01/16/20 23 01/15/2023 urina lysis , dipst ick Bilirubin (reference range) negati ve Not Available [address], [place], [address], 01/15/2023 11:27:00 01/16/20 23 01/15/2023 urina lysis , dipst ick Glucose (reference range) negati ve Not Available [facility] [address] [facility] [address], [place], [address], 01/15/2023 11:27:00 01/16/2001/15/2023 urina lysis , dipst ick Color (reference range: yellow-brown ) Yellow Not Available [facility] [address] [facility] [address], [place], [address], 01/15/2023 11:27:00 Result Notes None recorded. Medical [...] Not Available Not Available Not Available Hypodermic [place] 23 gauge x 1 USE DIRECTED TO [...] Available No t Available BD Regular Bevel [place] 22 gauge x 1 USE DIRECTED TO inject testosteron e active Not Available Not Available No t Available Vitals Date Recorded Body height Body mass index (BMI) Body weight Body temperature Systolic blood pressure Diastolic blood pressure Provider Name and Address Organization Details Last Updated DateTime 3 172.72 cm 30.4 kg/m2 77343.4 7 g 98 [degF] 130 mm[Hg] 72 mm[Hg] Keesha [facility] & [place] 3 11:21:37 Social History None recorded. Functional Status None recorded. Mental Status None recorded. Family History Nothing Reported. Medical History No medical history recorded. Past Encounters Encounter ID Performer Location Encounter Start Date Encounter Closed Date Diagnosis/Indication Diagnosis SNOMED-CT Code Diagnosis ICD10 Code Diagnosis Note [id number] Rhoda Calvert NP, S [facility] [address] [place] [address] 01/15/2023 10:35:22 01/15/2023 11:35:07 History of malignant neoplasm of prostate 176061010 Z85.[address] Solitario office to get PSA resultsRTC in 1 year for f/u Nocturia 965241300 R35.1 Erectile dysfunction [id number] [id number] F52.21 Health Concerns Section Related Observation LastModified [...] RRP on 05/13/[address] Herrera in [place]. Reports Dr Jeffries did PSA in Oct 2022, states was undectable. States urinary stream is good. Nocturia x2. Denies any dysuria, gross hematuria, wt loss, or bone pain. Pt is on Cialis 5mg daily r/t ED. Reports the medication is effective without any overt SEs. Pt is on Testosterone injections 1cc every other week overseen by Dr Jeffries. Rhoda Calvert NP, [address], [place], [address], [facility] - [place] & [place] 01/15/2023 11:36:03
[2025-01-22 13:58] VITALS: BP 130/83; PULSE 100; RESP 16; O2SAT 92; BMI 32.8
--- NOTE | 2025-01-22 14:16 | EXP.PAIN.SOA ---
[facility] Disclaimer: The information contained in this section may have been updated after the patient was seen, as this information can be updated by other users. Medical History Prostate cancer Stroke Surgical History H/O knee surgery 3 ON LEFT 2 ON RIGHT History of left knee replacement H/O neck surgery X2 History of prostatectomy 2013, Dr. Browne 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 Today he rates his pain a 0 out of 10. Patient denies any new falls or injuries following this procedure. Patient does state overall he feels like this pump is working remarkably well and is much better than his previous pump. Patient is currently managed with Dilaudid 5 mg/mL with a daily dose of 2.5 mg/day. He denies any side effects. His Fazal has been reviewed and is appropriate. Review of Systems: General: No recent weight changes, no fever, no sleep disturbances Respiratory: No cough, no shortness of air, no recurring pulmonary infections Cardiovascular/peripheral vascular: No chest pain, no palpitations, no edema, no shortness of breath Gastrointestinal: No new onset incontinence, normal bowel movements reported Genitourinary: No new onset incontinence Musculoskeletal: Low back pain Psychiatric: [Normal mood/affect] Neurological: [Denies weakness in extremities], [denies balance issues] Pain at rest (0-10 scale): 0 Objective Objective:: Physical Exam: General: Alert and oriented x3, no acute distress, pleasant and cooperative Lungs: Respirations even and unlabored, symmetrical chest expansion Eyes: PERRL Musculoskeletal: Flexion and extension of lumbar [spine] somewhat guarded secondary to pain, [antalgic gait noted] Neurological: Speech clear, no gross sensory deficit Skin: Incision sites are clean, dry, well-approximated with no erythema noted and sutures and michelle intact Has patient had previous pain injection?: No Conservative treatment options previously tried: Home exercise plan Length of treatment: Longer than 12 weeks Meds Home Medications and Allergies Home Medications ?Medication ?Instructions ?Recorded ?Confirmed ?Type pitavastatin calcium 2 mg tablet 2 mg PO DAILY Hypertension 09/05/20 01/22/25 History hydromorphone (PF) 2 mg/mL 0.12 mg IV CONT PRN chronic pain 01/02/21 01/22/25 History injection syringe testosterone cypionate 200 mg/mL 100 mg IM WEEKLY 09/05/23 01/22/25 History intramuscular oil rosuvastatin 5 mg tablet 5 mg PO DAILY 02/12/24 01/22/25 History hydrochlorothiazide 25 mg tablet 50 mg PO DAILY blood pressure 09/17/24 01/22/25 History celecoxib 200 mg capsule 200 mg PO DAILY 12/28/24 01/22/25 History escitalopram oxalate 10 mg tablet 10 mg PO DAILY 12/28/24 01/22/25 History tadalafil 5 mg tablet (Cialis) 5 mg PO DAILY 90 days #90 tabs 01/11/25 01/22/25 Rx sulfamethoxazole 800 1 tab PO BID #14 tabs 01/15/25 01/22/25 Rx mg-trimethoprim 160 mg tablet (Bactrim DS) New Prescriptions to Start Prescriptions: Allergies Allergy/AdvReac Type Severity Reaction Status Date / Time clindamycin (CLINDAMYCIN) Allergy Severe Anaphylaxis Verified 01/15/25 06:49 Penicillins (PENICILLINS) Allergy Severe S-ANAPHYLAX Verified 01/15/25 06:49 IS doxycycline Allergy Mild Vomiting Verified 01/15/25 06:49 aspirin (ASPIRIN) Allergy Unknown BLEEDING/BR Verified 01/15/25 06:49 UISING Assessment and Plan *Assessment and plan (1) Degenerative disc disease, lumbar: Status: Acute Category: Medical Code(s): M51.369 - Other intervertebral disc degeneration, lumbar region without mention of lumbar back pain or lower extremity pain Plan Patient is doing remarkably well with his new intrathecal pump and does not require any additional adjustment on the dosage. He was counseled to continue his postop restrictions for the full 6 weeks. Patient will be given a 2-week follow-up for suture and staple removal. Patient is scheduled for a knee replacement coming up next week. Patient was counseled to call us if he needs anything between now and then or has any concerns for worsening skin issues around his incisions concerning for infection. He agrees with this plan of care. Patient tolerated the procedure well with no complications and was discharged neurologically intact. Patient will return to clinic on or before their next intrathecal refill date. We will see the patient back in the clinic at the next intrathecal refill. Patient has been instructed to contact the clinic with any concerns before the next appointment. Dr. Boyle has reviewed this note and agrees with this plan of care. This note was dictated using voice recognition software and make contain errors or omissions. -- It Is medically necessary for this patient to continue to have their intrathecal pump refilled at regular intervals. This patient had an intrathecal pain pump implanted after meeting criteria of chronic intractable pain for greater than 3 months and failing conservative treatments. Patient has committed and been compliant to the treatment plan and all planned follow up care. Since implantation of the intrathecal pain pump, the patient has had decreased pain and been more functional. Oral medications have been reduced including intake of oral opioids. Patient continues to do well with intrathecal therapy with decrease in pain symptoms and increase in functional status. Stopping intrathecal medications can lead to life threatening withdrawal, seizures, cardiac arrest, severe pain, and possible . Pumps that are not refilled at regular intervals can be damages and cause and need for replacement. We continually titrate dose and concentration to optimize pain relief and function. We are limited in concentration for certain drugs to safely deliver medications through the pump and stay within the recommendations from the Polyanalgesic Consensus Committee Guidelines. Depending on dose and concentration these pumps may need to be refilled sooner than 3 months as we titrate. A UDS is needed to verify patient's compliance with our office pain contract. This is ordered based off specific treatments related to chronic pain with the potential to abuse certain medications.
== END 2025-01-22 23:59 | disposition home or self-care (01) ==
LOC: SC.PAIN 13:43
PROVIDERS: PCP Internal Medicine Adolescent Medicine; Visit Provider Nurse Practitioner Family
DX: M51.369 Other intervertebral disc degeneration, lumbar region without mention of lumbar back pain or lower extremity pain (principal); Z87.891 Personal history of nicotine dependence
CPT/HCPCS: 99212; G0463

== ENCOUNTER 2025-02-08 14:39 | Outpatient (POV) | payer OTHER, BC, SELFPAY ==
--- OUTSIDE RECORDS SUMMARY | 2025-02-08 14:42 | XMS_ITS | Data Portability ---
Author Organization [facility] & Allie WOLF ADMIN Address [address] [place] [address] Assessment No assessment recorded. Plan of Treatment Reminders Order Date Submit Date Provider Last Modified By Organization Details Last Modified Time Details Appointments None recorded. Lab urinalysis , dipstick 2022 023 [email or web address] [facility], [address] [place] [address], [phone], 12:16:45 Referral None recorded. Procedures None recorded. Surgeries None recorded. Imaging None recorded. Medication Orders None recorded. Patient TargetsNo targets recorded. Patient InstructionsNo instructions recorded. Reason for Referral None Reported. Results Created Date Observation Date Name Description Value Unit Range Abnormal Flag Note LastModifiedBy Organization Detail LastModifiedTime 01/16/2001/15/2023 urina lysis , dipst ick Leukocytes (reference range) negati ve Not Available [address], [address], 01/15/2023 11:27:00 01/16/20 23 01/15/2023 urina lysis , dipst ick Nitrite (reference range:) negati ve Not Available [address], [address], 01/15/2023 11:27:00 01/16/20 23 01/15/2023 urina lysis , dipst ick Urobilinogen (reference range) 0.2 Not Available [facility] [address] [place], [place] [address], [place], [address], 01/15/2023 11:27:00 01/16/20 23 01/15/2023 urina lysis , dipst ick Protein (reference range) negati ve Not Available [facility] [address] [place] [address] [address], [place], [address], 01/15/2023 11:27:00 01/16/20 23 01/15/2023 urina lysis , dipst ick pH (reference range 5-8.5) 5.0 Not Available [facility] [address] [place] [address] [address], [place], [address], 01/15/2023 11:27:00 01/16/20 23 01/15/2023 urina lysis , dipst ick Blood (reference range:) negati ve Not Available [address], [place], [address], 01/15/2023 11:27:00 01/16/20 23 01/15/2023 urina lysis , dipst ick Specific [place] (reference range) 1.015 Not Available [facility], [place], [address], 01/15/2023 11:27:00 01/16/20 23 01/15/2023 urina lysis , dipst ick Ketone (reference range) negati ve Not Available [address], [place], [address], 01/15/2023 11:27:00 01/16/20 23 01/15/2023 urina lysis , dipst ick Bilirubin (reference range) negati ve Not Available [address], [place], [address], 01/15/2023 11:27:00 01/16/20 23 01/15/2023 urina lysis , dipst ick Glucose (reference range) negati ve Not Available [facility] [address] [facility] [address], [place], [address], 01/15/2023 11:27:00 01/16/2001/15/2023 urina lysis , dipst ick Color (reference range: yellow-brown ) Yellow Not Available [facility] [address] [facility] [address], [place], [address], 01/15/2023 11:27:00 Result Notes None recorded. Medical Equipment None Reported. Medications Name Sig Start Date Stop Date Status Note LastModified by Organization Details LastModified Time celecoxib 200 mg capsule TAKE ONE CAPSULE BY MOUTH EVERY DAY active Not Available Not Available No t Available azithromycin 250 mg tablet TAKE 2 TABLETS BY MOUTH ON DAY 1, THEN TAKE 1 TABLET DAILY ON DAYS 2-5 active Not Available Not Available No t Available amlodipine 5 mg tablet TAKE ONE TABLET BY MOUTH EVERY DAY active Not Available Not Available No t Available sulfamethoxa zole 800 mg-trimethop rim 160 mg tablet TAKE ONE TABLET BY MOUTH TWICE DAILY -- FINISH ALL MEDICINE -- active Not Available Not Available Not Available Hypodermic [place] 23 gauge x 1 USE DIRECTED TO inject testosteron e active Not Available Not Available No t Available oxycodone-ac etaminophen 5 mg-325 mg tablet TAKE ONE TABLET BY MOUTH EVERY 4 HOURS NEEDED FOR MODERATE PAIN (4-6 PAIN SCALE) MAY CAUSE DROWSINESS active Not Available Not Available N ot Available amlodipine 10 mg tablet TAKE ONE [...] TAKE ONE TABLET BY MOUTH TWICE DAILY active Not Available Not Available No t [...] Available No t Available BD Regular Bevel [place] 22 gauge x 1 USE DIRECTED TO inject testosteron e active Not Available Not Available No t Available Eliquis 2.5 mg tablet TAKE ONE TABLET BY MOUTH TWICE DAILY active Not Available Not Available No t Available Stimulant Laxative Plus 8.6 mg-50 mg tablet TAKE ONE TABLET BY MOUTH TWICE DAILY NEEDED FOR constipatio n active Not Available Not Available No t Available Vitals Date Recorded Body height Body mass index (BMI) Body weight Body temperature Systolic blood pressure Diastolic blood pressure Provider Name and Address Organization Details Last Updated DateTime 3 172.72 cm 30.4 kg/m2 54457.4 7 g 98 [degF] 130 mm[Hg] 72 mm[Hg] Keesha Xiao [facility] & [place] 3 11:21:37 Social History None recorded. Functional Status None recorded. Mental Status None recorded. Family History Nothing Reported. Medical History No medical history recorded. Past Encounters Encounter ID Performer Location Encounter Start Date Encounter Closed Date Diagnosis/Indication Diagnosis SNOMED-CT Code Diagnosis ICD10 Code Diagnosis Note [id number] Rhoda Calvert NP, S [facility] [address] [facility] [place] [address] 01/15/2023 10:35:22 01/15/2023 11:35:07 History of malignant neoplasm of prostate 152332334 Z85.[address] Solitario office to get PSA resultsRTC in 1 year for f/u Nocturia 251628883 R35.1 Erectile dysfunction 860 [id number] F52.21 Health Concerns Section Related Observation LastModified by Organization Detai ls LastModified Time None Recorded Concern Status LastModified by Organization Details LastModified Time None Recorded Advance Directives Directive None Recorded Payers Insurance Date Sequence Insurance Name Policy Number Policy Domínguez Covered Member ID Domínguez Member ID Guarantor Name 01/15/2023 1 [place] [id number] Luisa S Skeens [id number] Luisa S Skeens 08/30/2021 1 [place] [id number] Luisa S Skeens [id number] Luisa S Skeens 02/05/2025 1 [place] [id number] Luisa S Skeens [id number] Luisa S Skeens 01/15/2023 1 [place] [id number] Luisa S Skeens [id number] Luisa S Skeens Notes Date Note Type Note Provider Name and Address Organization Details Recorded Time 01/15/2023 text/html 60yowm RTC for annual f/u of h/o CAP. Pt was last seen on 08/30/2021. Pt underwent RRP on 05/13/[address] Herrera in [place]. Reports Dr Jeffries did PSA in Oct 2022, states was undectable. States urinary stream is good. Nocturia x2. Denies any dysuria, gross hematuria, wt loss, or bone pain. Pt is on Cialis 5mg daily r/t ED. Reports the medication is effective without any overt SEs. Pt is on Testosterone injections 1cc every other week overseen by Dr Jeffries. Rhoda Calvert, JAVIER, [address], [place], [address], [facility] [place] & [place] 01/15/2023 11:36:03
--- OUTSIDE RECORDS SUMMARY | 2025-02-08 14:42 | XMS_ITS | Continuity of Care Document ---
Author Organization [facility] Phone Care Team Providers Care Healthcare Or Medical Name Role Phone DBEORAH KENDALL Unavailable JENNIFER ALVARES Admitting BARBARA FIORE Primary Care JENNIFER ALVARES Primary Attending ALLERGIES AND ADVERSE REACTIONS ALLERGIES AND ADVERSE REACTIONS Code System Allergy Substance Adverse Reaction Date Reaction (Severity) Comment Status Reported By Updated By 2582 RXNorm Clindamycin Shortness of breath/diffic ulty breathing (Moderate) Shock active [id number] on February 05, 2025 3:37:18 PM UTC 7984 RXNorm Penicillin Shortness of breath/diffic ulty breathing (Moderate) Shock active [id number] on February 05, 2025 3:37:18 PM UTC 3640 RXNorm Doxycycline Shortness of breath/diffic ulty breathing (Moderate) Shock active [id number] on February 05, 2025 3:37:18 PM UTC 1191 RXNorm Aspirin Shortness of breath/diffic ulty breathing (Moderate) Shock active [id number] on February 05, 2025 3:37:16 PM UTC Vancomycin Shortness of breath/diffic ulty breathing (Moderate) Shock active [id number] on February 05, 2025 3:37:18 PM UTC RESULTS Patient: SELENA MERA Date of : 1960 0 LABORATORY RESULTS ORDER 100: CBC AUTO W DIFF ( LOINC: 32547-2) ORDER DATE: February 05, 2025 3:44:00 PM UTC Specimen Source: Whole Blood Specimen Type: Whole blood s ample PERFORMING LAB: [address] [id number] Result Comment: Final Result Date: February 05, 2025 3:58:00 PM UTC (TECH: CB) LOINC TEST FLAG RESULT REFERENCE RANGE UPDA ISRA[place] BY 6690-2 Leukocytes [#/volume] in Blood by Automated count N 9.5 10^3/uL 4.5 10^3/uL - 11.5 10^3/uL February 05, 2025 3:58:00 PM UTC (TECH: CB) 789-8 Erythrocytes [#/volume] in Blood by Automated count H 5.72 10^6/uL 4.25 10^6/uL - 5.57 10^6/uL February 05, 2025 3:58:00 PM UTC (TECH: CB) 718-7 Hemoglobin [Mass/volume] in Blood N 15.1 g/dL 13.5 g/dL - 17.2 g/dL February 05, 2025 3:58:00 PM UTC (TECH: CB) 85430-1 Hematocrit [Volume Fraction] of Blood N 48.1 % 42.0 % - 52.0 % February 05, 2025 3:58:00 PM UTC (TECH: CB) 787-2 Erythrocyte mean corpuscular volume [Entitic volume] by Automated count N 84.1 fl 80 fl - 95 fl February 05, 2025 3:58:00 PM UTC (TECH: CB) 92923-6 Erythrocyte mean corpuscular hemoglobin [Entitic mass] in Blood from Fetus by Automated count L 26.4 pg 27.0 pg - 34.0 pg February 05, 2025 3:58:00 PM UTC (TECH: CB) 24636-8 Erythrocyte mean corpuscular hemoglobin concentration [Mass/volume] in Blood from Fetus by Automated count L 31.4 g/dL 32.0 g/dL - 36.0 g/dL February 05, 2025 3:58:00 PM UTC (TECH: CB) 14914-4 Platelets [#/volume] in Blood N 252 10^3/uL 150 10^3/uL - 450 10^3/uL February 05, 2025 3:58:00 PM UTC (TECH: CB) 16364-0 Erythrocyte distribution width [Ratio] H 16.7 % 12.3 % - 15.1 % February 05, 2025 3:58:00 PM UTC (TECH: CB) 23124-9 Platelet mean volume [Entitic volume] in Blood by Automated count N 9.5 fl 7.4 fl - 10.4 fl February 05, 2025 3:58:00 PM UTC (TECH: CB) 45790-4 Granulocytes/100 leukocytes in Blood by Automated count N 73.0 % 40 % - 75 % February 05, 2025 3:58:00 PM UTC (TECH: CB) 736-9 Lymphocytes/100 leukocytes in Blood by Automated count L 12.2 % 15 % - 57 % February 05, 2025 3:58:00 PM UTC (TECH: CB) 5905-5 Monocytes/100 leukocytes in Blood by Automated count N 8.6 % 4.0 % - 12.0 % February 05, 2025 3:58:00 PM UTC (TECH: CB) 713-8 Eosinophils/100 leukocytes in Blood by Automated count N 2.6 % 0.0 % - 4.0 % February 05, 2025 3:58:00 PM UTC (TECH: CB) 706-2 Basophils/100 leukocytes in Blood by Automated count N 0.7 % 0.0 % - 1.0 % February 05, 2025 3:58:00 PM UTC (TECH: CB) 52343-1 Immature granulocytes [#/volume] in Blood H 2.9 % 0.0 % - 0.8 % February 05, 2025 3:58:00 PM UTC (TECH: CB) 96886-6 Granulocytes [#/volume] in Blood by Automated count N 6.96 10^3/uL February 05, 2025 3:58:00 PM UTC (TECH: CB) 731-0 Lymphocytes [#/volume] in Blood by Automated count N 1.16 10^3/uL February 05, 2025 3:58:00 PM UTC (TECH: CB) 742-7 Monocytes [#/volume] in Blood by Automated count N 0.82 10^3/uL February 05, 2025 3:58:00 PM UTC (TECH: CB) 711-2 Eosinophils [#/volume] in Blood by Automated count N 0.25 10^3/uL February 05, 2025 3:58:00 PM UTC (TECH: CB) 704-7 Basophils [#/volume] in Blood by Automated count N 0.07 10^3/uL February 05, 2025 3:58:00 PM UTC (TECH: Appear) 15731-3 Immature granulocytes [#/volume] in Blood N 0.28 10^3/uL February 05, 2025 3:58:00 PM UT (TECH: Appear) 39275-5 Manual differential performed [Presence] in Blood N NO February 05, 2025 3:58:00 PM UTC (TECH: Appear) ORDER 200: COMP METABOLIC PA ZEINA (LOINC: 07083-6) ORDER DATE: February 05, 2025 3:44:00 PM UTC Specimen Source: Serum/Plasm a Specimen Type: Acellular blo od (serum or plasma) specimen PERFORMING LAB: [address] [id number] Result Comment: Final Result Date: February 05, 2025 4:16:00 PM UT (TECH: XMLAW) LOINC TEST FLAG RESULT REFERENCE RANGE UPDA ISRAEL BY 2951-2 Sodium [Moles/volume ] in Serum or Plasma N 139 mmol/L 136 mmol/L - 145 mmol/L February 05, 2025 4:16:00 PM UT (TECH: XMLAW) 2823-3 Potassium [Moles/vol ume] in Serum or Plasma N 4.1 mmol/L 3.5 mmol/L - 5.1 mmol/L February 05, 2025 4:16:00 PM UT (TECH: HC) 2075-0 Chloride [Moles/volu me] in Serum or Plasma N 99 mmol/L 98 mmol/L - 107 mmol/L February 05, 2025 4:16:00 PM UTC (TECH: HC) 2027-9 Carbon dioxide, tota l [Moles/volume] in Serum or Plasma N 32 mmol/L 21 mmol/L - 32 mmol/L February 05, 2025 4:16:00 PM UTC (TECH: HC) 81244-3 Anion gap 3 in Serum or Plasma N 8.0 February 05, 2025 4:16:00 PM UT (TECH: HC) 2345-7 Glucose [Mass/volume ] in Serum or Plasma N 95 mg/dL 70 mg/dL - 110 mg/dL February 05, 2025 4:16:00 PM UTC (TECH: HC) 3094-0 Urea nitrogen [Mass/volume] in Serum or Plasma H 26 mg/dL 7 mg/dL - 18 mg/dL February 05, 2025 4:16:00 PM [facility] (TECH: XMLAW) 2160-0 Creatinine [Mass/vol ume] in Serum or Plasma H 1.4 mg/dL 0.8 mg/dL - 1.3 mg/dL February 05, 2025 4:16:00 PM [facility] (TECH: XMLAW) 3097-3 Urea nitrogen/Creati nine [Mass Ratio] in Serum or Plasma N 18.6 - February 05, 2025 4:16:00 PM [facility] (TECH: XMLAW) 56164-1 Glomerular filtratio n rate/1.73 sq M.predicted by Creatinine-based formula (MDRD) L 57 mL/min >60 February 05, 2025 4:16:00 PM [facility] (TECH: XMLAW) 65709-8 Osmolality of Serum or Plasma by calculated by sum of electrolytes N 294 mosm/kg 275 mosm/kg - 301 mosm/kg February 05, 2025 4:16:00 PM [facility] (TECH: XMLAW) 2885-2 Protein [Mass/volume ] in Serum or Plasma N 7.6 g/dL 6.4 g/dL - 8.2 g/dL February 05, 2025 4:16:00 PM [facility] (TECH: XMLAW) 1751-7 Albumin [Mass/volume ] in Serum or Plasma N 3.5 g/dL 3.4 g/dL - 5.0 g/dL February 05, 2025 4:16:00 PM [facility] (TECH: XMLAW) 57153-6 Calcium [Mass/volume ] in Serum or Plasma H 10.2 mg/dL 8.5 mg/dL - 10.1 mg/dL February 05, 2025 4:16:00 PM [facility] (TECH: XMLAW) 01889-7 Calcium [Mass/volume ] corrected for total protein in Serum or Plasma H 10.6 mg/dL 8.5 mg/dL - 1 0.1 mg/dL February 05, 2025 4:16:00 PM [facility] (TECH: XMLAW) 1975-2 Bilirubin.total [Mass/volume] in Serum or Plasma N 0.9 mg/dL 0.4 mg/dL - 1.5 mg/dL February 05, 2025 4:16:00 PM [facility] (TECH: XMLAW) 1920-8 Aspartate aminotrans ferase [Enzymatic activity/volume] in Serum or Plasma N 32 U/L 15 U/L - 37 U/L February 05, 2025 4:16:00 PM UT (TECH: HC) 1742-6 Alanine aminotransfe rase [Enzymatic activity/volume] in Serum or Plasma N 57 U/L 12 U/L - 78 U/L February 05, 2025 4:16:00 PM UTC (TECH: HC) 6768-6 Alkaline phosphatase [Enzymatic activity/volume] in Serum or Plasma N 73 U/L February 05, 2025 4:16:00 PM UT (TECH: HC) LABORATORY NARRATIVE RESULTS Information is not available RADIOLOGY RESULTS ORDER 300: VENOUS DUPLEX LOW ER RIGHT (LOINC: 31993-5) ORDER DATE: February 05, 2025 3:44:00 PM [facility] PERFORMING LAB: [address] [id number] Final Result Date: February 05 4:13:[address] [place] [address] Name: EDE WALTERS Exam Date: 02/05/2025 : 1960 Age 64 years Gender: M Physician: Facility: [facility] Facility HSV: Outpatient Exam: VENOUS DUPLEX LOWER RIGHT CLINICAL HISTORY: 64 years Male with right lower extremity edema Technique: Ultrasound evaluate of the lower extremity venous system obtained with standard protocol including grayscale, color and spectral Doppler. Comparison: No previous for comparison FINDINGS: Side: Right lower extremity venous system. There is normal flow and compression from the common femoral vein to the popliteal vein. Normal flow and compression of the visualized calf veins. No intraluminal thrombus noted. No extravascular fluid collections or abnormality identified. IMPRESSIONS: 1. No sonographic evidence of deep venous thrombosis from the inguinal crease to the popliteal fossa. 2. No evidence of venous thrombosis within the visualized interrogated calf veins. Electronically signed by: Marguerite Montaño MD 02/05/2025 04:06 PM EDT Dictated By: MARGUERITE MONTAÑO Transcribed By: Transcribed On: 02/05/2025 12:13 PM Electronically signed by: MARGUERITE MONTAÑO 02/05/2025 Thank you for referring EDE WALTERS to [facility]. Legally authenticated by SABRA EVERETT 2025-02-05 12:13:22 PATHOLOGY NARRATIVE RESULTS Information is not available MICROBIOLOGY RESULTS No Micro Labs/Results Exist for Patient BLOOD ADMIN RESULTS Information is not available MEDICATIONS HOME MEDICATIONS Status RXNORM NDC Medication Dose Route Frequency Dates Comments Reported By Updated By Active Samina michaels bactrim 0.0 Last Dose: on February 05, 2025 4:01:23 PM UTC Active 326882 25004 82330 4 celecoxib (CELEBREX) 200.0 MG ORAL DAILY Last Dose: February 05, 2025 4:01:23 PM UTC Active 4731829 85487 25996 1 Eliquis 2.5 MG ORAL BID Last Dose: on February 05, 2025 4:01:23 PM UTC Active 215511 32492 20536 1 hydrochlorot hiazide (HCTZ) 50.0 MG ORAL DAILY Last Dose: February 05, 2025 4:01:24 PM UTC Active 988920 50920 29174 1 Lexapro Tablet 10 MG 10.0 MG ORAL DAILY Last Dose: February 05, 2025 4:01:24 PM UTC Active 091671 77633 58476 1 losartan potassium (COZAAR) 100.0 MG ORAL DAILY Last Dose: February 05, 2025 4:01:24 PM UTC Active 3991613 54358 80836 3 PERCOCET 5-325 MG 1.0 TAB ORAL Q4HPRN Last Dose: on February 05, 2025 4:01:24 PM UTC Active 249464 78363 19652 1 Rosuvastatin Calcium Tablet 5 MG 5.0 MG ORAL DAILY Last Dose: February 05, 2025 4:01:24 PM UTC Active 705971 06924 49566 1 SENNOSIDES-D OCUSATE SODIUM 8.6-50 MG 1.0 TAB ORAL BIDPRN Last Dose: February 05, 2025 4:01:24 PM UTC Active 641102 47484 90770 0 Tadalafil Tablet 5 MG 5.0 MG ORAL DAILY Last Dose: [id number] on February 05, 2025 4:01:25 PM UT Active 262578 98280 79847 0 Testosterone Cypionate Intramuscula r Solution 100 MG/ML 0.0 Last Dose: [id number] on February 05, 2025 4:01:25 PM UT DISCHARGE MEDICATIONS Status RXNORM NDC Medication Dose Route Frequency Dates Comments Physician Updated By No Discharge Medication Info rmation Available INPATIENT MEDICATIONS Status RXNORM NDC Medication Dose Route Frequency Rat e Quantity Dates Comments Physician Updated By Viki inued [id number] 7225 9128 331 HYDROmorpho ne (DILAUDID) 1 MG/ML SOLN 1.0 MG INTRAV ENOUS ONE TIME ONLY Start: February 05, 2025 3:52:0 0 PM UTC End: February 05, 2025 3:52:0 0 PM UT GIORGIO Subramanian MD INTERF ED on February 05, 2025 3:52:00 PM UT SOCIAL HISTORY SOCIAL HISTORY SNOMED-CT Social History Element Description Effective Dates Offered Cessation Comment UpdatedBy [id number] Current Tobacco smoking status Never Smoked [id number] on February 05, 2025 3:38:02 PM UT SOCIAL HISTORY - Gender Sex: Male SOCIAL HISTORY - Status : status i nformation is not available Intention in Next Year: intention information is not available SOCIAL HISTORY - Sexual Behavior Sexual Orientation Gender Identity SNOMED-CT Description SNO MED -CT Description Activity Level No of Partners Partner Type UpdatedBy Information is not available VITAL SIGNS PATIENT VITAL SIGNS This section displays the mo st recent value for each vital sign as of February 08, 2025 7:54:18 AM [facility] Loinc Code Vital Sign Activity Date Result Updated By 8310-5 Body temperature February 05, 2025 6:4 9:29 PM UT 98.1 [degF] [id number] on February 06, 2025 6:53:[place] [address]-3 Body weight Measured February 05, 2025 3:35:58 PM UT 99.5 kg (219.0 lb) [id number] on February 05, 2025 3:35:58 PM UT 8462-4 Diastolic blood pressure February 05, 2025 6:49:29 PM UT 73.0 mm[Hg] [id number] on February 06, 2025 6:53:06 PM UT 8867-4 Heart rate February 05, 2025 6:49 :29 PM UTC 80 /min [id number] on February 06, 2025 6:53:[place] [address]-8 Oxygen saturation in Arterial blood by Pulse oximetry February 05, 2025 6:49:29 PM UTC 98.0 % [id number] on February 06, 2025 6:53:06 PM UT 9279-1 Respiratory rate February 05, 2025 6:4 9:29 PM UTC 17 /min [id number] on February 06, 2025 6:53:06 PM UT 8480-6 Systolic blood pressure February 05, 2025 6:49:29 PM UTC 123.0 mm[Hg] [id number] on February 06, 2025 6:53:06 PM [facility] PEDIATRIC GROWTH CHART - VITAL SIGNS This section displays Head C ircumference Percentile, Weight for Length Percentile and BMI Percentile Loinc Code Pediatric Measure Age (Months) Result Updat ed By No Pediatric Growth Chart Pe rcentile Information Available. HEALTH CONCERNS Problems Concern Status Health Concern problem infor mation not available. Smoking Status Status Years Used Consumed packs p er day Health Concern smoking histo ry information not available. Family History Concern Status Health Concern family histor y information not available. MEDICAL EQUIPMENT MEDICAL EQUIPMENT Device Status Quantity Dates Procedure Comments Updated By Knee femur prosthesis SU: [id number] Assigning Authority: FDA Device Identifier:[id number] Expiration Date:2034-02-27 ACTIVE 1 Implanted: January 28, 2025 ARTHROPLASTY TOTAL KNEE RIGHT KNEE [id number] on January 28, 2025 12:47:25 PM UTC Uncoated knee tibia prosthesis, metallic SU: ()[id number] Assigning Authority: FDA Device Identifier:[id number] Expiration Date:2034-10-30 ACTIVE 1 Implanted: January 28, 2025 ARTHROPLASTY TOTAL KNEE RIGHT KNEE [id number] on January 28, 2025 12:48:25 PM UT Tibial insert SU: ()[id number] Assigning Authority: FDA Device Identifier:[id number] Expiration Date:2029-01-27 ACTIVE 1 Implanted: January 28, 2025 ARTHROPLASTY TOTAL KNEE RIGHT KNEE [id number] on January 28, 2025 12:51:24 PM UTC Polyethylene patella prosthesis SU: ()[id number] Assigning Authority: FDA Device Identifier:[id number] Expiration Date:2029-09-29 ACTIVE 1 Implanted: January 28, 2025 ARTHROPLASTY TOTAL KNEE RIGHT KNEE [id number] on January 28, 2025 12:54:22 PM UTC Orthopedic cement extraction system SU: )[id number] Assigning Authority: FDA Device Identifier:[id number] Expiration Date:2026-03-29 ACTIVE 2 Implanted: January 28, 2025 ARTHROPLASTY TOTAL KNEE RIGHT KNEE [id number] on January 28, 2025 12:55:25 PM UT ENCOUNTERS ENCOUNTER INFORMATION Reason for Visit LEG PAIN Admission February 05, 2025 3:27:[address] [id number] Discharge February 05, 2025 6:52:00 PM UT DISCH ARGED TO HOME OR SELF CARE ENCOUNTER DIAGNOSES Notes information is not kaitlynn ilable. Code System Diagnosis Onset Date Diagnosis information is not available. ABSTRACT DIAGNOSES Code System Diagnosis Updated By M79.89 ICD10 OTHER SPECIFIED SOFT TISSUE DISORDERS [id number] on February 08, 2025 7:53:34 AM UT M25.461 ICD10 EFFUSION, RIGHT KNEE [id number] on February 08, 2025 7:53:34 AM UT M25.561 ICD10 PAIN IN RIGHT KNEE [id number] o n February 08, 2025 7:53:34 AM UT I89.0 ICD10 LYMPHEDEMA, NOT ELSEWHERE CL ASSIFIED [id number] on February 08, 2025 7:53:34 AM UT I10 ICD10 ESSENTIAL (PRIMARY) HYPERTEN JACK [id number] on February 08, 2025 7:53:34 AM UT E78.5 ICD10 HYPERLIPIDEMIA, UNSPECIFIED [id number] on February 08, 2025 7:53:34 AM UT Z88.0 ICD10 ALLERGY STATUS TO PENICILLIN [id number] on February 08, 2025 7:53:34 AM UTC Z88.1 ICD10 ALLERGY STATUS T O OTHER ANTIBIOTIC AGENTS [id number] on February 08, 2025 7:53:34 AM UTC Z88.6 ICD10 ALLERGY STATUS TO ANALGESIC AGENT [id number] on February 08, 2025 7:53:34 AM UTC Z79.899 ICD10 OTHER CUSTODIAL (CURRENT) DR BANERJEE THERAPY [id number] on February 08, 2025 7:53:34 AM [facility] CARE TEAM Care Healthcare Or Medical Role DEBORAH KENDALL Referring JENNIFER ALVARES Admitting BARBARA FIORE Primary Care JENNIFER ALVARES Primary Attending CARE TEAM CARE 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 Role on Team Status Start Date End Date Update d By ENOCH CABRERA MD Referring normal February 05, 2025 4:26:32 PM [facility] February 05, 2025 6:52:00 PM [facility] [id number] on February 05, 2025 4:26:32 PM [facility] GIORGIO Subramanian MD PHY Attending normal February 05, 2025 4:26:32 PM [facility] February 05, 2025 6:52:00 PM [facility] [id number] on February 05, 2025 4:26:32 PM [facility] GIORGIO Subramanian MD PHY Admitting normal February 05, 2025 4:26:32 PM [facility] February 05, 2025 6:52:00 PM [facility] [id number] on February 05, 2025 4:26:32 PM [facility] ADEBAYO JIMENEZ MD PCP normal February 05 3:28:11 PM [facility] February 05, 2025 6:52:00 PM [facility] [id number] on February 05, 2025 4:26:32 PM [facility]
--- OUTSIDE RECORDS SUMMARY | 2025-02-08 14:43 | XMS_ITS | Continuity of Care Document ---
Author Organization [facility] Phone Care Team Providers Care School Aide Name Role Phone DEBORAH KENDALL Unavailable DEBORAH KENDALL Primary Attending BARBARA FIORE Primary Care DEBORAH KENDALL Surgeon DEBORAH KENDALL Admitting ADELITA MOSELEY Surgeon ALLERGIES AND ADVERSE REACTIONS ALLERGIES AND ADVERSE REACTIONS Code System Allergy Substance Adverse Reaction Date Reaction (Severity) Comment Status Reported By Updated By 2582 RXNorm Clindamycin Shortness of breath/diffic ulty breathing (Moderate) active [id number] on January 26, 2025 11:27:08 AM UT 7984 RXNorm Penicillin Shortness of breath/diffic ulty breathing (Moderate) active [id number] on January 26, 2025 11:27:08 AM UT 3640 RXNorm Doxycycline Shortness of breath/diffic ulty breathing (Moderate) active [id number] on January 26, 2025 11:27:08 AM UT 1191 RXNorm Aspirin Shortness of breath/diffic ulty breathing (Moderate) active [id number] on January 26, 2025 11:27:09 AM UTC Vancomycin Shortness of breath/diffic ulty breathing (Moderate) active [id number] on January 26, 2025 11:27:08 AM UT ASSESSMENTS Arthritis of right knee ; PROBLEMS PATIENT PROBLEMS Code Description/Comments Category Status Upda israel By [id number] Arthritis of right knee active [id number] on January 28, 2025 11:01:53 AM UT RESULTS Patient: SELENA MERA Date of : 1960 0 LABORATORY RESULTS ORDER 300: CBC AUTO W DIFF ( LOINC: 91199-5) ORDER DATE: January 25, 2025 12:54:00 PM UTC Specimen Source: Whole Blood Specimen Type: Whole blood s ample PERFORMING LAB: [address] [id number] Result Comment: Final Result Date: January 25, 2025 1:05:00 PM UTC (TECH: LT) LOINC TEST FLAG RESULT REFERENCE RANGE UPDA ISRA[place] BY 6690-2 Leukocytes [#/volume] in Blood by Automated count N 7.1 10^3/uL 4.5 10^3/uL - 11.5 10^3/uL January 25, 2025 1:05:00 PM UTC (TECH: LT) 789-8 Erythrocytes [#/volume] in Blood by Automated count H 6.47 10^6/uL 4.25 10^6/uL - 5.57 10^6/uL January 25, 2025 1:05:00 PM UTC (TECH: LT) 718-7 Hemoglobin [Mass/volume] in Blood N 16.9 g/dL 13.5 g/dL - 17.2 g/dL January 25, 2025 1:05:00 PM UTC (TECH: LT) 16463-0 Hematocrit [Volume Fraction] of Blood H 54.0 % 42.0 % - 52.0 % January 25 1:05:00 PM UTC (TECH: LT) 787-2 Erythrocyte mean corpuscular volume [Entitic volume] by Automated count N 83.5 fl 80 fl - 95 fl January 25, 2025 1:05:00 PM UTC (TECH: LT) 08239-4 Erythrocyte mean corpuscular hemoglobin [Entitic mass] in Blood from Fetus by Automated count L 26.1 pg 27.0 pg - 34.0 pg January 25, 2025 1:05:00 PM UTC (TECH: LT) 64949-9 Erythrocyte mean corpuscular hemoglobin concentration [Mass/volume] in Blood from Fetus by Automated count L 31.3 g/dL 32.0 g/dL - 36.0 g/dL January 25, 2025 1:05:00 PM UTC (TECH: LT) 48823-1 Platelets [#/volume] in Blood N 200 10^3/uL 150 10^3/uL - 450 10^3/uL January 25, 2025 1:05:00 PM UTC (TECH: LT) 03789-9 Erythrocyte distribution width [Ratio] H 17.6 % 12.3 % - 15.1 % January 25, 2025 1:05:00 PM UTC (TECH: LT) 82583-7 Platelet mean volume [Entitic volume] in Blood by Automated count N 9.6 fl 7.4 fl - 10.4 fl January 25, 2025 1:05:00 PM UTC (TECH: LT) 45519-0 Granulocytes/100 leukocytes in Blood by Automated count H 77.3 % 40 % - 75 % January 25 1:05:00 PM UTC (TECH: LT) 736-9 Lymphocytes/100 leukocytes in Blood by Automated count L 11.2 % 15 % - 57 % January 25 1:05:00 PM UTC (TECH: LT) 5905-5 Monocytes/100 leukocytes in Blood by Automated count N 7.0 % 4.0 % - 12.0 % January 25 1:05:00 PM UTC (TECH: LT) 713-8 Eosinophils/100 leukocytes in Blood by Automated count N 2.4 % 0.0 % - 4.0 % January 25 1:05:00 PM UTC (TECH: LT) 706-2 Basophils/100 leukocytes in Blood by Automated count N 1.0 % 0.0 % - 1.0 % January 25 1:05:00 PM UTC (TECH: LT) 59097-2 Immature granulocytes [#/volume] in Blood H 1.1 % 0.0 % - 0.8 % January 25 1:05:00 PM UTC (TECH: LT) 36477-9 Granulocytes [#/volume] in Blood by Automated count N 5.51 10^3/uL January 25 1:05:00 PM UTC (TECH: LT) 731-0 Lymphocytes [#/volume] in Blood by Automated count N 0.80 10^3/uL January 25 1:05:00 PM UTC (TECH: LT) 742-7 Monocytes [#/volume] in Blood by Automated count N 0.50 10^3/uL January 25, 2025 1:05:00 PM UTC (TECH: LT) 711-2 Eosinophils [#/volume] in Blood by Automated count N 0.17 10^3/uL January 25 1:05:00 PM UTC (TECH: LT) 704-7 Basophils [#/volume] in Blood by Automated count N 0.07 10^3/uL January 25, 2025 1:05:00 PM UTC (TECH: LT) 51685-8 Immature granulocytes [#/volume] in Blood N 0.08 10^3/uL January 25 1:05:00 PM UTC (TECH: LT) 60095-7 Manual differential performed [Presence] in Blood N NO January 25, 2025 1:05:00 PM UTC (TECH: LT) ORDER 400: COMP METABOLIC PA ZEINA (LOINC: 57798-8) ORDER DATE: January 25, 2025 12:54:00 PM UTC Specimen Source: Serum/Plasm a Specimen Type: Acellular blo od (serum or plasma) specimen PERFORMING LAB: [address] [id number] Result Comment: Final Result Date: January 25, 2025 1:22:00 PM UT (TECH: LT) LOINC TEST FLAG RESULT REFERENCE RANGE UPDA ISRA[place] BY 2951-2 Sodium [Moles/volume ] in Serum or Plasma N 139 mmol/L 136 mmol/L - 145 mmol/L January 25, 2025 1:22:00 PM UTC (TECH: LT) 2823-3 Potassium [Moles/volume] in Serum or Plasma N 3.9 mmol/L 3.5 mmol/L - 5.1 mmol/L January 25, 2025 1:22:00 PM UTC (TECH: LT) 5-0 Chloride [Moles/volu me] in Serum or Plasma N 100 mmol/L 98 mmol/L - 107 mmol/L January 25, 2025 1:22:00 PM UTC (TECH: LT) 2027- Carbon dioxide, tota l [Moles/volume] in Serum or Plasma N 29 mmol/L 21 mmol/L - 32 mmol/L January 25, 2025 1:22:00 PM UTC (TECH: LT) 54417-1 Anion gap 3 in Serum or Plasma N 10.0 January 25, 2025 1:22:00 PM UTC (TECH: LT) 2345-7 Glucose [Mass/volume ] in Serum or Plasma H 113 mg/dL 70 mg/dL - 110 mg/dL January 25, 2025 1:22:00 PM UTC (TECH: LT) 3094-0 Urea nitrogen [Mass/volume] in Serum or Plasma N 16 mg/dL 7 mg/dL - 18 mg/dL January 25, 2025 1:22:00 PM UTC (TECH: LT) 2160-0 Creatinine [Mass/volume] in Serum or Plasma H 1.5 mg/dL 0.8 mg/dL - 1.3 mg/dL January 25, 2025 1:22:00 PM UTC (TECH: LT) 3097-3 Urea nitrogen/Creatinine [Mass Ratio] in Serum or Plasma N 10.7 - January 25, 2025 1:22:00 PM UT (TECH: LT) 98778-7 Glomerular filtratio n rate/1.73 sq M.predicted by Creatinine-based formula (MDRD) L 52 mL/min >60 January 25, 2025 1:22:00 PM UT (TECH: LT) 99132-1 Osmolality of Serum or Plasma by calculated by sum of electrolytes N 291 mosm/kg 275 mosm/kg - 301 mosm/kg January 25, 2025 1:22:00 PM UT (TECH: LT) 2885-2 Protein [Mass/volume ] in Serum or Plasma N 7.4 g/dL 6.4 g/dL - 8.2 g/dL January 25, 2025 1:22:00 PM UTC (TECH: LT) 1751-7 Albumin [Mass/volume ] in Serum or Plasma N 4.0 g/dL 3.4 g/dL - 5.0 g/dL January 25, 2025 1:22:00 PM UT (TECH: LT) 11612-8 Calcium [Mass/volume ] in Serum or Plasma N 9.5 mg/dL 8.5 mg/dL - 10.1 mg/dL January 25, 2025 1:22:00 PM UT (TECH: LT) 24281-5 Calcium [Mass/volume ] corrected for total protein in Serum or Plasma N 9.5 mg/dL 8.5 mg/dL - 10.1 mg/dL January 25, 2025 1:22:00 PM UTC (TECH: LT) 1975-2 Bilirubin.total [Mass/volume] in Serum or Plasma N 0.8 mg/dL 0.4 mg/dL - 1.5 mg/dL January 25, 2025 1:22:00 PM UTC (TECH: LT) 1920-8 Aspartate aminotransferase [Enzymatic activity/volume] in Serum or Plasma H 51 U/L 15 U/L - 37 U/L January 25, 2025 1:22:00 PM UTC (TECH: LT) 1742-6 Alanine aminotransferase [Enzymatic activity/volume] in Serum or Plasma N 63 U/L 12 U/L - 78 U/L January 25, 2025 1:22:00 PM UTC (TECH: LT) 6768-6 Alkaline phosphatase [Enzymatic activity/volume] in Serum or Plasma N 84 U/L January 25, 2025 1:22:00 PM UTC (TECH: LT) ORDER 500: HEMOGLOBIN A1C (L OINC: 4548-4) ORDER DATE: January 25, 2025 12:54:00 PM UTC Specimen Source: Whole Blood Specimen Type: Whole blood s ample PERFORMING LAB: [address] [id number] Result Comment: Final Result Date: January 25, 2025 1:14:00 PM UTC (TECH: LT) LOINC TEST FLAG RESULT REFERENCE RANGE UPDA ISRA[place] BY 4548-4 Hemoglobin A1c/Hemoglobin.tota l in Blood N 5.4 % 4.5 % - 6.2 % January 25, 2025 1:14:00 PM UTC (TECH: LT) 95722-1 Glucose mean value [Mass/volume] in Blood Estimated from glycated hemoglobin N 108 mg/dl 82 mg/dl - 131 mg/dl January 25, 2025 1:14:00 PM UTC (TECH: LT) ORDER 600: PTT PARTIAL THROM B TIME (LOINC: 87000-7) ORDER DATE: January 25, 2025 12:54:00 PM UTC Specimen Source: Plasma Specimen Type: Plasma specim en PERFORMING LAB: [address] [id number] Result Comment: Final Result Date: January 25, 2025 1:15:00 PM UTC (TECH: LT) LOINC TEST FLAG [place] [address]-5 Activated partial thromboplastin time (aPTT) in Platelet poor plasma by Coagulation assay N 27.0 seconds 24.5 seconds - 32.8 seconds January 25, 2025 1:15:00 PM UTC (TECH: LT) ORDER 700: PT PROTHROMBIN TI ME W INR (LOINC: 24861-8) ORDER DATE: January 25, 2025 12:54:00 PM UTC Specimen Source: Plasma Specimen Type: Plasma specim en PERFORMING LAB: [address] [id number] Result Comment: Final Result Date: January 25, 2025 1:15:00 PM UTC (TECH: LT) LOINC TEST FLAG [place] [address]-6 INR in Platelet poor plasma or blood by Coagulation assay N 11.3 seconds 9.1 seconds - 12.0 seconds January 25, 2025 1:15:00 PM UTC (TECH: LT) 6301-6 INR in Platelet poor plasma by Coagulation assay N 1.04 0.9 - 1.1 January 25, 2025 1:15:00 PM UTC (TECH: LT) ORDER 800: UA AND MICRO/CULT IF INDICATED (LOINC: 61337-2) ORDER DATE: January 25, 2025 12:54:00 PM UTC Specimen Source: URINE Specimen Type: Urine specime n PERFORMING LAB: [address] [id number] Result Comment: Final Result Date: January 25, 2025 1:05:00 PM UTC (TECH: LT) LOINC TEST FLAG RESULT REFERENCE RANGE UPDA ISRA[place] BY 5778-6 Color of Urine N yellow YELLOW January 25, 2025 1:05:00 PM UTC (TECH: LT) 5767-9 Appearance of Urine N clear CLEAR January 25, 2025 1:05:00 PM UTC (TECH: LT) 5792-7 Glucose [Mass/volume] in Urine by Test strip N NORM NORMAL January 25, 2025 1:05:00 PM UTC (TECH: LT) 25901-9 Bilirubin.total [Mass/volume] in Urine by Automated test strip N NEGATIVE NEGATIVE January 25, 2025 1:05:00 PM UTC (TECH: LT) 5797-6 Ketones [Mass/volume] in Urine by Test strip N 5 (TRACE) mg/dL NEGATIVE January 25, 2025 1:05:00 PM UTC (TECH: LT) 2965-2 Specific gravity of Urine N 1.020 1.005 - 1.035 January 25, 2025 1:05:00 PM UTC (TECH: LT) 41089-2 Erythrocytes [#/volume] in Urine by Automated test strip N NEGATIVE NEGATIVE January 25, 2025 1:05:00 PM UTC (TECH: LT) 48537-8 pH of Urine by Automated test strip N 6.00 5.0 - 7.5 January 25, 2025 1:05:00 PM UTC (TECH: LT) 74069-3 Protein [Presence] in Urine by Test strip N 15 (TRACE) mg/dL NEGATIVE January 25, 2025 1:05:00 PM UTC (TECH: LT) 43346-1 Urobilinogen [Mass/volume] in Urine by Automated test strip N 1 mg/dL NORMAL January 25, 2025 1:05:00 PM UTC (TECH: LT) 90921-6 Nitrate [Presence] in Urine N NEGATIVE NEGATIVE January 25, 2025 1:05:00 PM UTC (TECH: LT) 36525-8 Leukocytes [#/volume] in Urine by Test strip N TRACE (25) /mcL NEGATIVE January 25, 2025 1:05:00 PM UTC (TECH: LT) 54944-6 Other elements in Urine sediment N NOT REQUIRED January 25, 2025 1:05:00 PM UTC (TECH: LT) 26145-4 Microscopic observation [Identifier] in Urine sediment by Light microscopy N NO January 25, 2025 1:05:00 PM UTC (TECH: LT) ORDER 900: URINE DRUG SCREEN - EXL MAX (LOINC: 79392-3) ORDER DATE: January 25, 2025 12:54:00 PM UTC Specimen Source: URINE Specimen Type: Urine specime n PERFORMING LAB: [address] [id number] Result Comment: Final Result Date: January 25, 2025 1:14:00 PM UTC (TECH: LT) LOINC TEST FLAG [place] [address]-2 Amphetamine+Methamph etamine [Presence] in Urine N NEGATIVE NEGATIVE January 25 1:14:00 PM UTC (TECH: LT) 3377-9 Barbiturates [Presen ce] in Urine N NEGATIVE NEGATIVE January 25, 2025 1:14:00 PM UTC (TECH: LT) 89876-8 Benzodiazepine metab olites [Presence] in Urine by Screen method N NEGATIVE NEGATIVE January 25, 2025 1:14:00 PM UTC (TECH: LT) 3414-0 Buprenorphine [Prese nce] in Urine N NEGATIVE NEGATIVE January 25, 2025 1:14:00 PM UTC (TECH: LT) 3397-7 Cocaine [Presence] in Urine N NEGATIVE NE GATIVE January 25, 2025 1:14:00 PM UTC (TECH: LT) 74189-8 Methadone [Presence] in Specimen N NEGATIVE NEGATIVE January 25, 2025 1:14:00 PM UTC (TECH: LT) 16397-2 Opiates [Mass/volume ] in Specimen N NEGATIVE NEGATIVE January 25, 2025 1:14:00 PM UTC (TECH: LT) 70125-2 oxyCODONE [Presence] in Specimen N NEGATIVE NEGATIVE January 25, 2025 1:14:00 PM UTC (TECH: LT) 3427-2 Cannabinoids [Presen ce] in Urine N NEGATIVE NEGATIVE January 25, 2025 1:14:00 PM UTC (TECH: LT) 15491-1 Phencyclidine [Prese nce] in Specimen N NEGATIVE NEGATIVE January 25, 2025 1:14:00 PM UTC (TECH: LT) 50288-4 Fentanyl [Presence] in Urine N NEGATIVE N EGATIVE January 25, 2025 1:14:00 PM UTC (TECH: LT) 97053-5 Tricyclic antidepres sants [Presence] in Specimen N NEGATIVE NEGATIVE January 25, 2025 1:14:00 PM UTC (TECH: LT) 19264-8 Internal control result N PASS PASS January 25, 2025 1:14:00 PM UTC (TECH: LT) LABORATORY NARRATIVE RESULTS Information is not available RADIOLOGY RESULTS ORDER 100: CHEST PA AND LAT (LOINC: 70348-9) ORDER DATE: January 25, 2025 12:33:00 PM UTC PERFORMING LAB: [place] [address] [facility] [id number] Final Result Date: January 25, 2025 12:44:[address] [place] [address] Name: EDE WALTERS Exam Date: 01/25/2025 : 1960 Age 64 years Gender: M Physician: DEBORAH KENDALL Facility: [facility] Facility HSV: Outpatient Exam: CHEST PA & LAT INDICATIONS: 64 years Male presenting for preoperative evaluation TECHNIQUE: Two PA and lateral views of the chest were obtained. COMPARISON: None available. FINDINGS: Low lung volumes with elevation of the left hemidiaphragm and associated basilar atelectasis. No focal consolidation to suggest pneumonia. No pleural effusion, or pneumothorax. Cardiomediastinal silhouette is unremarkable. Normal pulmonary vasculature. Mild degenerative changes of the visualized thoracic spine. Chronic right-sided rib fractures. IMPRESSION: No acute cardiopulmonary process. Electronically signed by: Marguerite Montaño MD 01/25/2025 02:36 PM EDT Dictated By: MARGUERITE OMNTAÑO Transcribed By: Transcribed On: 01/25/2025 8:44 AM Electronically signed by: MARGUERITE MONTAÑO 01/25/2025 Thank you for referring EDE WALTERS to [facility]. Legally authenticated by SABRA EVERETT 2025-01-25 08:44:56 ORDER 1600: KNEE 2V RT (LOIN C: 30183-3) ORDER DATE: January 28, 2025 1:09:00 PM [facility] PERFORMING LAB: [address] [id number] Final Result Date: January 28 1:24:[address] [place] [address] Name: EDE WALTERS Exam Date: 01/28/2025 : 1960 Age 64 years Gender: M Physician: DEBORAH KENDALL Facility: [facility] Facility HSV: Outpatient Exam: KNEE 2V RT EXAM: XR KNEE 2 VIEWS RIGHT HISTORY: s/p R TKA. COMPARISON: None. FINDINGS: 2 views of the right knee demonstrate postoperative changes from right total knee arthroplasty. The orthopedic hardware is in expected position. No immediate complication identified. Soft tissue gas throughout the anterior right knee is within expected limits for postsurgical change. No acute fracture, dislocation or other acute osseous abnormality. IMPRESSION: Expected postoperative changes from right total knee arthroplasty. Electronically signed by: Thony Edwards MD 02/01/2025 10:40 AM EDT Dictated By: Thony Edwards Transcribed By: Transcribed On: 01/28/2025 9:24 AM Electronically signed by: Thony Edwarsd 01/28/2025 Thank you for referring EDE WALTERS to [facility]. Legally authenticated by ALONZO VIGIL MD 2025-01-28 09:24:00 PATHOLOGY NARRATIVE RESULTS Information is not available MICROBIOLOGY RESULTS No Micro Labs/Results Exist for Patient BLOOD ADMIN RESULTS Information is not available TREATMENT PLAN DISCHARGE MEDICATIONS Status RXNORM Medication Dose Route Frequency Dates Comments U pdated By Continued 360368 Lexapro Oral Tab let 10 MG 10 MG ORAL ONCE DAILY Prescr ibed: January 28, 2025 1:10:4 3 PM UTC [id number] on January 28, 2025 1:10:43 PM UTC Continued 739558 SENNOSIDES-DOCUS ATE SODIUM 8.6-50 MG 1 TAB ORAL TWICE A DAY NEEDED Prescr ibed: January 28, 2025 1:10:4 3 PM UTC [id number] on January 28, 2025 1:10:43 PM UTC Continued 881522 Testosterone Cypionate Intramuscular Solution 100 MG/ML 0 Prescr ibed: January 28, 2025 1:10:4 3 PM UTC [id number] on January 28, 2025 1:10:43 PM UTC Continued bactrim 0 Prescr ibed: January 28, 2025 1:10:4 3 PM UTC [id number] on January 28, 2025 1:10:43 PM UTC Continued 659975 hydrochlorothiaz ganga (HCTZ) 50 MG ORAL ONCE DAILY Prescr ibed: January 28, 2025 1:10:4 3 PM UTC [id number] on January 28, 2025 1:10:43 PM UTC Continued 2239921 Eliquis 2.5 MG ORAL TWICE A DAY Prescr ibed: January 28, 2025 1:10:4 3 PM UTC [id number] on January 28, 2025 1:10:43 PM UTC Continued 544175 losartan potassi um (COZAAR) 100 MG ORAL ONCE DAILY Prescr ibed: January 28, 2025 1:10:4 3 PM UT [id number] on January 28, 2025 1:10:43 PM UT Continued 6688817 PERCOCET 5-325 MG 1 TAB ORAL EV OTIS FOUR HOURS NEEDED Prescr ibed: January 28, 2025 1:10:4 3 PM UT [id number] on January 28, 2025 1:10:43 PM UT Continued 417647 celecoxib (CELEBREX) 200 MG ORAL ONCE DAILY Prescr ibed: January 28, 2025 1:10:4 3 PM UT [id number] on January 28, 2025 1:10:43 PM UT Continued 006037 Rosuvastatin Cody cium Oral Tablet 5 MG 5 MG ORAL ONCE DAILY Prescr ibed: January 28, 2025 1:10:4 3 PM UT [id number] on January 28, 2025 1:10:43 PM UT Continued 237784 Tadalafil Oral Tablet 5 MG 5 MG ORAL ONCE DAILY Prescr ibed: January 28, 2025 1:10:4 3 PM UT [id number] on January 28, 2025 1:10:43 PM [facility] PATIENT OPEN ORDERS Code System Description Frequency Occurrences Priority [place] [address] [facility] Specimen type ONE TIME 0 Routine January 28, 2025 12:59:0 0 PM UT ENOCH CABRERA MD [id number] on January 28, 2025 1:00:00 PM [facility] SCHEDULED PROCEDURES Code System Description Status Scheduled Date Upd ated By Patient scheduled procedure information is not available. MEDICATIONS HOME MEDICATIONS Status RXNORM [facility] Medication Dose Route Frequency Dates Comments Reported By Updated By Active 143323 54030 11214 0 Tadalafil Oral Tablet 5 MG 5.0 MG ORAL DAILY Last Dose: [id number] on January 25, 2025 5:55:59 PM UT Active 563391 96896 78276 4 celecoxib (CELEBREX) 200.0 MG ORAL DAILY Last Dose: [id number] on January 25, 2025 5:56:11 PM UT Active 744549 56670 37252 1 losartan potassium (COZAAR) 100.0 MG ORAL DAILY Last Dose: [id number] on January 25, 2025 5:56:22 PM UT Active 005823 79034 94537 1 hydrochlorot hiazide (HCTZ) 50.0 MG ORAL DAILY Last Dose: [id number] on January 25, 2025 5:56:42 PM UT Active 224054 55150 97265 1 Rosuvastatin Calcium Oral Tablet 5 MG 5.0 MG ORAL DAILY Last Dose: [id number] on January 25, 2025 5:56:53 PM UT Active 348664 69852 92476 0 Testosterone Cypionate Intramuscula r Solution 100 MG/ML 0.0 Last Dose: [id number] on January 28, 2025 11:02:45 AM UT Active 680813 50870 52905 1 Lexapro Oral Tablet 10 MG 10.0 MG ORAL DAILY Last Dose: [id number] on January 25, 2025 5:57:14 PM UT Active FreeT extMe d bactrim 0.0 Last Dose: [id number] on January 28, 2025 11:02:51 AM UT Active 8855469 71374 56590 1 Eliquis 2.5 MG ORAL BID Last Dose: [id number] on January 28, 2025 1:09:33 PM UT Active 6508565 65247 42775 3 PERCOCET 5-325 MG 1.0 TAB ORAL Q4HPRN Last Dose: [id number] on January 28, 2025 1:09:46 PM UT Active 568003 08959 31354 1 SENNOSIDES-D OCUSATE SODIUM 8.6-50 MG 1.0 TAB ORAL BIDPRN Last Dose: [id number] on January 28, 2025 1:10:01 PM [facility] DISCHARGE MEDICATIONS Status RXNORM [facility] Medication Dose Route Frequency Dates Comments Physician Updated By Continue xenia 643414 7309 6201 001 Lexapro Oral Tablet 10 MG 10.0 MG ORAL ONCE DAILY Prescr ibed: January 28, 2025 1:10:4 3 PM [facility] ENOCH CABREAR MD [id number] on January 28, 2025 1:10:43 PM [facility] Continue xenia 344333 1811 7062 211 SENNOSIDES- DOCUSATE SODIUM 8.6-50 MG 1.0 TAB ORAL TWICE A DAY NEEDED Prescr ibed: January 28, 2025 1:10:4 3 PM [facility] ENOCH CABRERA MD [id number] on January 28, 2025 1:10:43 PM UTC Continue d 525889 0673 6001 740 Testosteron e Cypionate Intramuscul ar Solution 100 MG/ML 0.0 Prescr ibed: January 28, 2025 1:10:4 3 PM UTC ENOCH CABRERA MD [id number] on January 28, 2025 1:10:43 PM UTC Continue d Free Text Med bactrim 0.0 Prescr ibed: January 28, 2025 1:10:4 3 PM UTC ENOCH CABRERA MD [id number] on January 28, 2025 1:10:43 PM UTC Continue d 219397 4859 7059 311 hydrochloro thiazide (HCTZ) 50.0 MG ORAL ONCE DAILY Prescr ibed: January 28, 2025 1:10:4 3 PM UTC ENOCH CABRERA MD [id number] on January 28, 2025 1:10:43 PM UTC Continue d 3031609 7694 3089 331 Eliquis 2.5 MG ORAL TWICE A DAY Prescr ibed: January 28, 2025 1:10:4 3 PM UTC ENOCH CABRERA MD [id number] on January 28, 2025 1:10:43 PM UTC Continue d 298046 5037 4034 711 losartan potassium (COZAAR) 100.0 MG ORAL ONCE DAILY Prescr ibed: January 28, 2025 1:10:4 3 PM UTC ENOCH CABRERA MD [id number] on January 28, 2025 1:10:43 PM UTC Continue d 9371083 3290 6051 223 PERCOCET 5-325 MG 1.0 TAB ORAL EVERY FOUR HOURS NEEDED Prescr ibed: January 28, 2025 1:10:4 3 PM UTC ENOCH CABRERA MD [id number] on January 28, 2025 1:10:43 PM UTC Continue d 748041 2534 5152 034 celecoxib (CELEBREX) 200.0 MG ORAL ONCE DAILY Prescr ibed: January 28, 2025 1:10:4 3 PM UTC ENOCH CABRERA MD [id number] on January 28, 2025 1:10:43 PM UTC Continue d 172949 9094 5058 281 Rosuvastati n Calcium Oral Tablet 5 MG 5.0 MG ORAL ONCE DAILY Prescr ibed: January 28, 2025 1:10:4 3 PM UT ENOCH CABRERA MD [id number] on January 28, 2025 1:10:43 PM UT Continue d 585403 7567 8056 630 Tadalafil Oral Tablet 5 MG 5.0 MG ORAL ONCE DAILY Prescr ibed: January 28, 2025 1:10:4 3 PM UT ENOCH CABRERA MD [id number] on January 28, 2025 1:10:43 PM [facility] INPATIENT MEDICATIONS Status RXNORM [facility] Medication Dose Route Frequency Rat e Quantity Dates Comments Physician Updated By Discont inued 780878 1728 4775 000 lactated ringers (LR) SOLN 1000. 0 ML INTRAV ENOUS CONT 25.0 ML/HR Start: January 28, 2025 10:00: 00 AM UT End: January 28, 2025 1:10:4 3 PM UT YOLI EVANS CRNA [id number] on January 29, 2025 4:25:00 AM UT Discont inued 966995 8416 4775 000 lactated ringers (LR) SOLN 1000. 0 ML INTRAV ENOUS CONT 25.0 ML/HR Start: January 28, 2025 10:00: 00 AM UT End: January 28, 2025 1:10:4 3 PM UT YOLI EVANS WHEEL BUFFER [id number] on January 29, 2025 4:25:00 AM UT Discont inued 6873406 5336 9909 332 fentaNYL (SUBLIMAZE) 100 MCG/2ML SOLN 25.0 MCG INTRAV ENOUS EVERY 5 MINUTES NEEDED (PACU) Start: January 28, 2025 10:00: 00 AM UT End: January 28, 2025 1:10:4 3 PM UT YOLI BRICENOJAMIL BENITEZ [id number] on January 29, 2025 4:25:00 AM UT Discont inued 4764670 3767 9909 332 fentaNYL (SUBLIMAZE) 100 MCG/2ML SOLN 50.0 MCG INTRAV ENOUS EVERY 5 MINUTES NEEDED (PACU) Start: January 28, 2025 10:00: 00 AM UT End: January 28, 2025 1:10:4 3 PM UT YOLI EVANS CRNA [id number] on January 29, 2025 4:25:00 AM UT Discont inued [id number] HYDROmorpho ne (DILAUDID) 1 MG/ML SOLN 0.5 MG INTRAV ENOUS EVERY 10 MINUTES NEEDED (PACU) Start: January 28, 2025 10:00: 00 AM UTC End: January 28, 2025 1:10:4 3 PM [facility] YOLI EVANS CRNA [id number] on January 29, 2025 4:25:00 AM UTC Discont inued [id number] PERCOCET 5-325 MG TABS 1.0 TAB ORAL NEEDED Start: January 28, 2025 10:00: 00 AM UTC End: January 28, 2025 1:10:4 3 PM [facility] [id number] on January 28, 2025 1:26:00 PM UTC Discont inued [id number] ondansetron (ZOFRAN) 4 MG/2ML SOLN 4.0 MG INTRAV ENOUS EVERY 30 MINUTES NEEDED Start: January 28, 2025 10:00: 00 AM UTC End: January 28, 2025 1:10:4 3 PM [facility] YOLI EVANS CRNA [id number] on January 29, 2025 4:25:00 AM UTC Discont inued [id number] LEVOFLOXACI N IN [id number] 750 MG/150ML SOLN 750.0 MG INTRAV ENOUS ONE TIME ONLY Start: January 28, 2025 10:59: 00 AM UTC End: January 28, 2025 10:59: 00 AM UT ENOCH CABRERA MD INTERFAC ED on January 28, 2025 10:58:00 AM UTC Discont inued [id number] propofol (DIPRIVAN) 200 MG/20ML EMUL 20.0 ML INTRAV ENOUS ONE TIME ONLY Start: January 28, 2025 11:07: 00 AM UTC End: January 28, 2025 11:07: 00 AM UT ENOCH CABRERA MD INTERFAC ED on January 28, 2025 11:05:00 AM UTC Discont inued [id number] 3028 631 ropivacaine (NAROPIN) 5 MG/ML SOLN 150.0 MG ONE TIME ONLY Start: January 28, 2025 11:07: 00 AM UTC End: January 28, 2025 11:07: 00 AM UT ENOCH CABRERA MD INTERFAC ED on January 28, 2025 11:06:00 AM UTC Discont inued [id number] 0004 824 LEVOFLOXACI N IN D5W 750 MG/150ML SOLN 750.0 MG INTRAV ENOUS NOW 125.0 ML/HR Start: January 28, 2025 11:22: 00 AM UTC End: January 28, 2025 11:24: 48 AM UTC ENOCH CABRERA MD [id number] on January 28, 2025 11:24:00 AM UTC Discont inued [id number] 3028 631 ropivacaine (NAROPIN) 5 MG/ML SOLN 150.0 MG ONE TIME ONLY Start: January 28, 2025 11:35: 00 AM UTC End: January 28, 2025 11:35: 00 AM UTC ENOCH CABRERA MD INTERFAC ED on January 28, 2025 11:33:00 AM UTC Discont inued [id number] [id number] 9379 601 ketorolac (TORADOL) 60 MG/2ML SOLN 60.0 MG INTRAM USCULA R ONE TIME ONLY Start: January 28, 2025 11:35: 00 AM UTC End: January 28, 2025 11:35: 00 AM UTC NEOCH CABRERA MD INTERFAC ED on January 28, 2025 11:34:00 AM UTC Discont inued [id number] 0101 9042 010 EMERPHED 5 MG/ML SOLN 50.0 MG ONE TIME ONLY Start: January 28, 2025 11:54: 00 AM UTC End: January 28, 2025 11:54: 00 AM UTC ENOCH CABRERA MD INTERFAC ED on January 28, 2025 11:52:00 AM UTC Discont inued [id number] 9894 2100 001 tranexamic acid 1000 MG/10ML SOLN 1000. 0 MG ONE TIME ONLY Start: January 28, 2025 11:56: 00 AM UTC End: January 28, 2025 11:56: 00 AM UTC ENOCH CABRERA MD INTERFAC ED on January 28, 2025 11:55:00 AM UTC Discont inued [id number] 7501 2100 001 tranexamic acid 1000 MG/10ML SOLN 1000. 0 MG ONE TIME ONLY Start: January 28, 2025 11:56: 00 AM UTC End: January 28, 2025 11:56: 00 AM UTC ENOCH CABRERA MD INTERFAC ED on January 28, 2025 11:55:00 AM UTC Discont inued [id number] 6936 3067 120 PRECEDEX 80 MCG/20 ML SOLN 80.0 MCG ONE TIME ONLY Start: January 28, 2025 12:08: 00 PM UTC End: January 28, 2025 12:08: 00 PM UTC ENOCH CABRERA MD INTERFAC ED on January 28, 2025 12:07:00 PM UTC Discont inued [id number] 0505 3050 601 dexamethaso ne PF (DECADRON) 10 MG/ML SOLN 10.0 MG ONE TIME ONLY Start: January 28, 2025 12:10: 00 PM UTC End: January 28, 2025 12:10: 00 PM UTC ENOCH CABRERA MD INTERFAC ED on January 28, 2025 12:09:00 PM UTC SOCIAL HISTORY SOCIAL HISTORY SNOMED-CT Social History Element Description Effective Dates Offered Cessation Comment UpdatedBy [id number] Smoking Status Unknown If Ever Smoked SOCIAL HISTORY - Gender Sex: Male SOCIAL [...] for each vital sign as of February 02, 2025 2:02:50 AM UT Loinc Code Vital Sign Activity Date Result Updated By 8302-2 Body height January 25, 2025 5:54:38 PM UTC 170.18 cm (67.0 in) [id number] on January 25, 2025 5:54:[place] [address]-1 Body mass index (BMI ) [Ratio] January 25, 2025 5:54:38 PM UTC 34.529 kg/m2 [id number] on January 25, 2025 5:54:38 PM UT 3140-1 Body Surface Area Derived From Formula January 25, 2025 5:54:38 PM UTC 2.1075 m2 [id number] on January 25, 2025 5:54:38 PM UT 8310-5 Body temperature January 28, 2025 2:1 0:00 PM UTC 97.5 [degF] [id number] on January 28, 2025 2:13:58 PM UTC 26449-9 Body weight Measured January 25 5:54:38 PM UTC 100.0 kg (220.0 lb) [id number] on January 25, 2025 5:54:38 PM UTC 8462-4 Diastolic blood pressure January 28, 2025 2:10:00 PM UTC 83.0 mm[Hg] [id number] on January 28, 2025 2:13:58 PM UTC 8867-4 Heart rate January 28, 2025 2:10 :00 PM UTC 81 /min [id number] on January 28, 2025 2:13:58 PM UTC 26362-8 Oxygen saturation in Arterial blood by Pulse oximetry January 28, 2025 2:10:00 PM UTC 97.0 % [id number] on January 28, 2025 2:13:58 PM UTC 9279-1 Respiratory rate January 28, 2025 2:1 0:00 PM UTC 18 /min [id number] on January 28, 2025 2:13:58 PM UTC 8480-6 Systolic blood pressure January 28, 2025 2:10:00 PM UTC 129.0 mm[Hg] [id number] on January 28, 2025 2:13:58 PM UTC PEDIATRIC GROWTH CHART - VITAL SIGNS This section displays Head C ircumference Percentile, Weight for Length Percentile and BMI Percentile Loinc Code Pediatric Measure Age (Months) Result Updat ed By No Pediatric Growth Chart Pe rcentile Information Available. PROCEDURES PATIENT PROCEDURES CODE SYSTEM DESCRIPTION STATUS PERFORMED DATE UPD ATED BY [id number] SNOMED-CT ARTHROPLASTY TOT AL KNEE completed January 28, 2025 4:00:00 AM UTC [id number] on January 28, 2025 1:36:00 PM UTC PROCEDURE NOTE Note Title Operative/Procedure Note Date Of Service January 28, 2025 1:12:22 PM UTC Created By [id number] on January 28 1:12:22 PM UTC Signed By [id number] on January 28 1:13:36 PM UTC Pre-Procedure Diagnosis 1. Procedure / Surgery 1. Anesthesia Type General anesthesia Estimated Blood Loss Minimal Complications None Present at Time of Surgery Yes Indication Patient initially came to see me with right knee pain. Dull achy pain in nature. It was worse with going up stairs. Worse the more they were up on it. Continued to bother despite conservative measures of rest ice anti-inflammatories physical therapy as well as cortisone injections. X-ray showed severe arthritis of the right knee. I explained the benefit from a right total knee arthroplasty. I discussed the typical risks benefits and alternatives of the procedure with the patient wished to proceed. Risks included bleeding infection damage to nerves vessels need for further procedures stroke heart attack blood clot even . Procedure Description / Findings Patient was seen in the preoperative holding area. Right lower extremity was marked. H and P and consent were updated. They were then wheeled to the operative suite placed on the operating table in the supine position. They then underwent general endotracheal anesthesia without complication. Tourniquet was applied to the right lower extremity. Right lower extremity was prepped and draped in normal sterile orthopedic fashion. Time-out was performed antibiotics and tranexamic acid had been given. Right lower extremity was then exsanguinated tourniquet inflated. Incision was then made in the midline 3 fingerbreadths above the superior pole patella to the medial aspect of the tibial tubercle. This was taken down through subcutaneous tissue to identify the extensor mechanism. Medial parapatellar arthrotomy was then performed followed by slight peel the deep MCL removal of lateral fat pad and anterior synovitis. Next we everted the patella remove soft tissue from around the patella and made our patellar cut that was 13 mm thick and flat. We then marked Whitesides line trans epicondylar axis. We removed the ACL. We then placed our intramedullary femoral guide set at 5 valgus taking 9 mm distal femoral cut. Pinned our distal femoral cutting block into place made our distal femoral cut. We then placed a sizing guide reference off the posterior condyles to get the size of our femur.. We then placed the correct size 4 in [address] made our anterior cut making sure not to notch femur followed by our posterior condylar cut posterior chamfer cut and anterior chamfer cut. Next we placed extramedullary tibial guide set our varus valgus and our posterior slope set to take 2 mm off the medial side which was low side. Made our proximal tibial cut. We then brought the leg out to full extension removed mediolateral meniscus released superficial MCL and medial-sided osteophytes that they was tight medially. Next we placed the attune dog bone making sure we taken of bone in both flexion and extension. We then placed a femoral sulcus cutting guide and made our femoral sulcus cut and removed posterior osteophytes with a curved osteotome and a mallet. We then brought tibia forward set our rotation medial 3rd of the tibial tubercle for the correct size tibial base plate reamed and punches. We were now ready for trialing with our in place insert came out to full extension stable to varus valgus stress at 90 of flexion we elevated 1 mm on the medial side 2-3 mm on lateral side felt we had a nice well-balanced knee in both flexion and extension. We then made our patellar cut making sure was parallel to the tibial cut placed a patellar trial and it tracked appropriately with no hands technique. We then removed all trial components thoroughly irrigated suctioned and dried the wound injected our posterior capsule local anesthetic and then cemented on the tibial component removing excess cement with Momence and pickups followed by the femoral component again removing excess cement with Momence pickups. We placed a real polyethylene snapped this into place brought the leg out in full extension. We then cemented on our patellar component held all this in place until the cement cured. Thoroughly irrigated suctioned and dried the wound. We then closed in layered fashion using 1. Stratafix to close parapatellar arthrotomy. 2-0 Vicryl to close subcutaneous tissue and 3-0 Monocryl to close subcuticular layer. Prineo dressing was applied followed by Covaderm. Patient was then awoken from general endotracheal anesthesia without complication taken recovery room stable condition. Specimens None Tubes/Drains None Implants depuy 35 mm anatomic patella, attune size 6 narrow cruciate retaining right femur, size 6 x 5 mm cruciate-retaining fixed bearing insert, attune size 6 tibial base plate fixed bearing S + Disposition of Patient Patient be discharged home. Weightbearing as tolerated right lower extremity. Be working with home health physical therapy. Leave dressing intact until return to clinic. Okay to shower in 2 days. Keep incision dry. I will prescribe him Percocet Senokot and Eliquis. I will see him back in 2 weeks. Electronically signed by ENOCH CABRERA MD on 1745 HEALTH CONCERNS Problems Concern Status Health Concern problem infor wanda not available. Smoking Status Status Years Used Consumed packs p er day Health Concern smoking histo ry information not available. Family History Concern Status Health Concern family histor y information not available. MEDICAL EQUIPMENT MEDICAL EQUIPMENT Device Status Quantity Dates Procedure Comments Updated By Knee femur prosthesis SU: ()[id number] Assigning Authority: FDA Device Identifier:[id number] Expiration Date:2034-02-27 ACTIVE 1 Implanted: January 28, 2025 ARTHROPLASTY TOTAL KNEE RIGHT KNEE [id number] on January 28, 2025 12:47:25 PM UTC Uncoated knee tibia prosthesis, metallic SU: ()[id number] Assigning Authority: FDA Device Identifier:[id number] Expiration Date:2034-10-30 ACTIVE 1 Implanted: January 28, 2025 ARTHROPLASTY TOTAL KNEE RIGHT KNEE [id number] on January 28, 2025 12:48:25 PM UTC Tibial insert SU: ()[id number] Assigning Authority: FDA Device Identifier:[id number] Expiration Date:2029-01-27 ACTIVE 1 Implanted: January 28, 2025 ARTHROPLASTY TOTAL KNEE RIGHT KNEE [id number] on January 28, 2025 12:51:24 PM UTC Polyethylene patella prosthesis SU: ()[id number] Assigning Authority: FDA Device Identifier:[id number] Expiration Date:2029-09-29 ACTIVE 1 Implanted: January 28, 2025 ARTHROPLASTY TOTAL KNEE RIGHT KNEE [id number] on January 28, 2025 12:54:22 PM UTC Orthopedic cement extraction system SU: ()[id number] Assigning Authority: FDA Device Identifier:[id number] Expiration Date:2026-03-29 ACTIVE 2 Implanted: January 28, 2025 ARTHROPLASTY TOTAL KNEE RIGHT KNEE [id number] on January 28, 2025 12:55:25 PM UTC ENCOUNTERS ENCOUNTER INFORMATION Reason for Visit M17.11 Admission January 28, 2025 9:52:[address] [id number] Discharge January 28, 2025 5:52:00 PM UT DISCH ARGED TO HOME OR SELF CARE ENCOUNTER DIAGNOSES Notes information is not kaitlynn ilable. Code System Diagnosis Onset Date Diagnosis information is not available. 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) DR CHRISS THERAPY [id number] on February 01, 2025 11:54:18 AM UTC Z96.652 ICD10 PRESENCE OF LEFT ARTIFICIAL KNEE JOINT [id number] on February 01, 2025 11:54:18 AM UTC Z86.73 ICD10 PERSONAL HISTORY OF TRANSIENT ISCHEMIC ATTACK (TIA), AND CEREBRAL INFARCTION WITHOUT RESIDUAL DEFICITS [id number] on February 01, 2025 11:54:18 AM UTC Z88.0 ICD10 ALLERGY STATUS TO PENICILLIN [id number] on February 01, 2025 11:54:18 AM UTC Z88.6 ICD10 ALLERGY STATUS TO ANALGESIC AGENT [id number] on February 01, 2025 11:54:18 AM UTC Z88.1 ICD10 ALLERGY STATUS T O OTHER ANTIBIOTIC AGENTS [id number] on February 01, 2025 11:54:18 AM UT CARE TEAM Care School Aide Role DEBORAH KENDALL Referring DEBORAH KENDALL Primary Attending BARBARA FIORE Primary Care DEBORAH KENDALL Surgeon DEBORAH KENDALL Admitting ADELITA MOSELEY Surgeon CARE TEAM CARE proof operator Role on Team Status Start Date End Date Update d By PRADIP Small CRNA WHEEL BUFFER Surgeon normal January 28, 2025 5:00:00 AM UT January 28, 2025 5:52:00 PM UTC [id number] on February 01, 2025 11:54:42 AM UT PRADIP Small CRNA WHEEL BUFFER Healthcare professional normal January 28, 2025 11:46:00 AM UTC January 28, 2025 5:52:00 PM UTC [id number] on February 01, 2025 11:54:42 AM UT ENOCH CABRERA MD Surgeon normal January 28, 2025 12:00:00 PM UTC January 28, 2025 5:52:00 PM UTC [id number] on February 01, 2025 11:54:42 AM UTC ADEBAYO JIMENEZ MD PCP normal January 25, 2025 12:22:28 PM UTC January 28, 2025 4:00:00 AM UTC [id number] on February 01, 2025 11:54:42 AM UT ENOCH CABRERA MD Referring normal January 25, 2025 12:22:28 PM UTC January 28, 2025 4:00:00 AM UTC [id number] on February 01, 2025 11:54:42 AM UTC ENOCH CABRERA MD Attending normal January 22, 2025 1:41:35 PM UT January 28, 2025 4:00:00 AM UTC [id number] on February 01, 2025 11:54:42 AM UT ENOCH CABRERA MD Admitting normal January 22, 2025 1:41:35 PM UTC January 28, 2025 4:00:00 AM UTC [id number] on February 01, 2025 11:54:42 AM UTC
--- NOTE | 2025-02-08 15:23 | A.OFFVIS_ITS ---
[facility] Disclaimer: The information contained in this section may have been updated after the patient was seen, as this information can be updated by other users. Medical History Prostate cancer Stroke Surgical History H/O knee surgery 3 ON LEFT 2 ON RIGHT History of left knee replacement H/O neck surgery X2 History of prostatectomy 2013, Dr. 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 Today he rates his pain a 2 out of 10. He does state from our last visit he ended up having to go to the ER for evaluation of the blood clot following his total right knee replacement on January 28. He does state that they en ded up doing additional imaging and blood work and ruled out a blood clot. He does state that he has a lot of swelling and discoloration. He does present today with a dressing on his right knee and with a [place] hose on. He does state that the compression sock does seem like it really helps with that pain however he is still using a walker for help with ambulation. Patient does state that overall his pump since having it replaced is doing absolutely amazing. He states that he has not felt that great in some time. Patient is currently managed with Dilaudid 5 mg/mL with a daily dose of 2.5 mg/day. He denies any side effects or need for additional adjustment. His Fazal has been reviewed and is appropriate. Review of Systems: General: No recent weight changes, no fever, no sleep disturbances Respiratory: No cough, no shortness of air, no recurring pulmonary infections Cardiovascular/peripheral vascular: No chest pain, no palpitations, no edema, no shortness of breath Gastrointestinal: No new onset incontinence, normal bowel movements reported Genitourinary: No new onset incontinence Musculoskeletal: Right knee pain Psychiatric: [Normal mood/affect] Neurological: [Denies weakness in extremities], [denies balance issues] Pain at rest (0-10 scale): 2 Objective Objective:: Physical Exam: General: Alert and oriented x3, no acute distress, pleasant and cooperative Lungs: Respirations even and unlabored, symmetrical chest expansion Eyes: PERRL Musculoskeletal: Flexion and extension of right knee somewhat guarded secondary to pain, [antalgic gait noted] Neurological: Speech clear, no gross sensory deficit Has patient had previous pain injection?: No Conservative treatment options previously tried: Home exercise plan Length of treatment: Longer than 12 weeks Meds Home Medications and Allergies Home Medications ?Medication ?Instructions ?Recorded ?Confirmed ?Type pitavastatin calcium 2 mg tablet 2 mg PO DAILY Hypertension 09/05/20 01/22/25 History hydromorphone (PF) 2 mg/mL 0.12 mg IV CONT PRN chronic pain 01/02/21 01/22/25 History injection syringe testosterone cypionate 200 mg/mL 100 mg IM WEEKLY 09/05/23 01/22/25 History intramuscular oil rosuvastatin 5 mg tablet 5 mg PO DAILY 02/12/24 01/22/25 History hydrochlorothiazide 25 mg tablet 50 mg PO DAILY blood pressure 09/17/24 01/22/25 History celecoxib 200 mg capsule 200 mg PO DAILY 12/28/24 01/22/25 History escitalopram oxalate 10 mg tablet 10 mg PO DAILY 12/28/24 01/22/25 History tadalafil 5 mg tablet (Cialis) 5 mg PO DAILY 90 days #90 tabs 01/11/25 01/22/25 Rx sulfamethoxazole 800 1 tab PO BID #14 tabs 01/15/25 01/22/25 Rx mg-trimethoprim 160 mg tablet (Bactrim DS) New Prescriptions to Start Prescriptions: Allergies Allergy/AdvReac Type Severity Reaction Status Date / Time clindamycin (CLINDAMYCIN) Allergy Severe Anaphylaxis Verified 01/15/25 06:49 Penicillins (PENICILLINS) Allergy Severe S-ANAPHYLAX Verified 01/15/25 06:49 IS doxycycline Allergy Mild Vomiting Verified 01/15/25 06:49 aspirin (ASPIRIN) Allergy Unknown BLEEDING/BR Verified 01/15/25 06:49 UISING Assessment and Plan *Assessment and plan (1) Degenerative disc disease, lumbar: Status: Acute Category: Medical Code(s): M51.369 - Other intervertebral disc degeneration, lumbar region without mention of lumbar back pain or lower extremity pain Plan Patient did have majority of his sutures and michelle removed during today's visit. His incisions are clean, dry, well-approximated with minimal erythema noted. We did leave some of the michelle in the lateral incision that was more midline. Patient will return to clinic in 1 week to have the remainder removed. We did apply skin glue and Steri-Strips on the midline incision. He was counseled that he is still on postop restrictions. Patient will return to clinic in 1 week. Patient has been instructed to contact the clinic with any concerns before the next appointment. Dr. Boyle has reviewed this note and agrees with this plan of care. This note was dictated using voice recognition software and make contain errors or omissions. All injections are used with Lidocaine, Bupivacaine and dexamethasone. Occasionally urine drug screen is needed to verify patient's compliance with our office pain contract. This is ordered based off specific treatments related to chronic pain with the potential to abuse certain medications.
[2025-02-08 15:41] VITALS: BP 145/90; BP 151/79; PULSE 86; RESP 14; O2SAT 95; BMI 34.2
== END 2025-02-08 23:59 | disposition home or self-care (01) ==
LOC: SC.PAIN 14:41
PROVIDERS: PCP Internal Medicine Adolescent Medicine; Visit Provider Nurse Practitioner Family
DX: M51.369 Other intervertebral disc degeneration, lumbar region without mention of lumbar back pain or lower extremity pain (principal); Z96.652 Presence of left artificial knee joint
CPT/HCPCS: 62368; 99212; 99213; G0463

== ENCOUNTER 2025-02-15 14:28 | Outpatient (POV) | payer BC, SELFPAY ==
--- OUTSIDE RECORDS SUMMARY | 2025-02-15 14:32 | XMS_ITS | Data Portability ---
Author Organization [facility] & Allie WOLF ADMIN Address [address] [place] [id number] Assessment No assessment recorded. Plan of Treatment Reminders Order Date Submit Date Provider Last Modified By Organization Details Last Modified Time Details Appointments None recorded. Lab urinalysis , dipstick 2022 023 [email or web address] [facility], [address] [place] [address], [phone], 12:16:45 Referral None recorded. Procedures None recorded. Surgeries None recorded. Imaging None recorded. Medication Orders None recorded. Patient TargetsNo targets recorded. Patient InstructionsNo instructions recorded. Reason for Referral None Reported. Results Created Date Observation Date Name Description Value Unit Range Abnormal Flag Note LastModifiedBy Organization Detail LastModifiedTime 01/16/2001/15/2023 urina lysis , dipst ick Leukocytes (reference range) negati ve Not Available [address], [address], 01/15/2023 11:27:00 01/16/20 23 01/15/2023 urina lysis , dipst ick Nitrite (reference range:) negati ve Not Available [address], [address], 01/15/2023 11:27:00 01/16/20 23 01/15/2023 urina lysis , dipst ick Urobilinogen (reference range) 0.2 Not Available [facility] [address] [place], [place] [address], [place], [address], 01/15/2023 11:27:00 01/16/20 23 01/15/2023 urina lysis , dipst ick Protein (reference range) negati ve Not Available [facility] [address] [place] [address] [address], [place], [address], 01/15/2023 11:27:00 01/16/20 23 01/15/2023 urina lysis , dipst ick pH (reference range 5-8.5) 5.0 Not Available [facility] [address] [place] [address] [address], [place], [address], 01/15/2023 11:27:00 01/16/20 23 01/15/2023 urina lysis , dipst ick Blood (reference range:) negati ve Not Available [address], [place], [address], 01/15/2023 11:27:00 01/16/20 23 01/15/2023 urina lysis , dipst ick Specific Kimball (reference range) 1.015 Not Available [facility], [place], [address], 01/15/2023 11:27:00 01/16/20 23 01/15/2023 urina lysis , dipst ick Ketone (reference range) negati ve Not Available [address], [place], [address], 01/15/2023 11:27:00 01/16/20 23 01/15/2023 urina lysis , dipst ick Bilirubin (reference range) negati ve Not Available [address], [place], [address], 01/15/2023 11:27:00 01/16/20 23 01/15/2023 urina lysis , dipst ick Glucose (reference range) negati ve Not Available [facility] [address] [facility] [address], [place], [address], 01/15/2023 11:27:00 01/16/2001/15/2023 urina lysis , dipst ick Color (reference range: yellow-brown ) Yellow Not Available [facility] [address] [facility] [address], [place], [address], 01/15/2023 11:27:00 Result Notes None recorded. Medical [...] Not Available Not Available Not Available Hypodermic Maidens 23 gauge x 1 USE DIRECTED TO [...] Available Not Available No t Available BD Luer-Gelacoi Syringe 3 mL 25 gauge x 1 [...] Available No t Available BD Regular Bevel Maidens 22 gauge x 1 USE DIRECTED TO [...] Updated DateTime 3 172.72 cm 30.4 kg/m2 35321.4 7 g 98 [degF] 130 mm[Hg] 72 mm[Hg] Keesha Xiao [facility] & [place] 3 11:21:37 Social History None recorded. Functional Status None recorded. Mental Status None recorded. Family History Nothing Reported. Medical History No medical history recorded. Past Encounters Encounter ID Performer Location Encounter Start Date Encounter Closed Date Diagnosis/Indication Diagnosis SNOMED-CT Code Diagnosis ICD10 Code Diagnosis Note [id number] Rhoda Calvert NP, [facility] [address] [facility] [place] [address] 01/15/2023 10:35:22 01/15/2023 11:35:07 History of malignant neoplasm of prostate 026859040 Z85.[address] Solitario office to get PSA resultsRTC in 1 year for f/u Nocturia 142585505 R35.1 Erectile dysfunction [id number] 701558 F52.21 Health Concerns Section Related Observation LastModified by Organization Detai ls LastModified Time None Recorded Concern Status LastModified by Organization Details LastModified Time None Recorded Advance Directives Directive None Recorded Payers Insurance Date Sequence Insurance Name Policy Number Policy Domínguez Covered Member ID Domínguze Member ID Guarantor Name 01/15/2023 1 [place] [id number] Luisa S Skeens [id number] Luisa S Skeens 08/30/2021 1 [place]) [id number] Luisa S Skeens [id number] Luisa S Skeens 02/05/2025 1 [place] [id number] Luisa S Skeens [id number] Luisa S Skeens 01/15/2023 1 [place] [id number] Luisa S Skeens [id number] Luisa S Skeens Notes Date Note Type Note Provider Name and Address Organization Details Recorded Time 01/15/2023 text/html [id number] RTC for annual f/u of h/o CAP. Pt was last seen on 08/30/2021. Pt underwent RRP on 05/13/[address] Herrera in [place]. Reports Dr Jeffries did PSA in Oct 2022, states was undectable. States urinary stream is good. Nocturia x2. Denies any dysuria, gross hematuria, wt loss, or bone pain. Pt is on Cialis 5mg daily r/t ED. Reports the medication is effective without any overt SEs. Pt is on Testosterone injections 1cc every other week overseen by Dr Jeffries. Rhoda Calvert, JAVIER, [address], [place], [address], [facility] [place] & [place] 01/15/2023 11:36:03
--- NOTE | 2025-02-15 15:10 | A.OFFVIS_ITS ---
[facility] Disclaimer: The information contained in this section may have been updated after the patient was seen, as this information can be updated by other users. Medical History Prostate cancer Stroke Surgical History H/O knee surgery 3 ON LEFT 2 ON RIGHT History of left knee replacement H/O neck surgery X2 History of prostatectomy 2013, Dr. 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 Today he rates his pain a 3 out of 10. He denies any new changes. He states overall he is still doing really well. Patient is currently managed with Dilaudid 5 mg/mL with a daily dose of 2.5 mg/day. He denies any side effects and feels like this dosage is still working well. His Fazal has been reviewed and is appropriate. Review of Systems: General: No recent weight changes, no fever, no sleep disturbances Respiratory: No cough, no shortness of air, no recurring pulmonary infections Cardiovascular/peripheral vascular: No chest pain, no palpitations, no edema, no shortness of breath Gastrointestinal: No new onset incontinence, normal bowel movements reported Genitourinary: No new onset incontinence Musculoskeletal: Low back pain Psychiatric: [Normal mood/affect] Neurological: [Denies weakness in extremities], [denies balance issues] Pain at rest (0-10 scale): 3 Objective Objective:: Physical Exam: General: Alert and oriented x3, no acute distress, pleasant and cooperative Lungs: Respirations even and unlabored, symmetrical chest expansion Eyes: PERRL Musculoskeletal: Flexion and extension of lumbar [spine] somewhat guarded secondary to pain, [antalgic gait noted] Neurological: Speech clear, no gross sensory deficit Has patient had previous pain injection?: No Conservative treatment options previously tried: Home exercise plan Length of treatment: Longer than 12 weeks Meds Home Medications and Allergies Home Medications ?Medication ?Instructions ?Recorded ?Confirmed ?Type pitavastatin calcium 2 mg tablet 2 mg PO DAILY Hypertension 09/05/20 02/15/25 History hydromorphone (PF) 2 mg/mL 0.12 mg IV CONT PRN chronic pain 01/02/21 02/15/25 History injection syringe testosterone cypionate 200 mg/mL 100 mg IM WEEKLY 09/05/23 02/15/25 History intramuscular oil rosuvastatin 5 mg tablet 5 mg PO DAILY 02/12/24 02/15/25 History hydrochlorothiazide 25 mg tablet 50 mg PO DAILY blood pressure 09/17/24 02/15/25 History celecoxib 200 mg capsule 200 mg PO DAILY 12/28/24 02/15/25 History escitalopram oxalate 10 mg tablet 10 mg PO DAILY 12/28/24 02/15/25 History tadalafil 5 mg tablet (Cialis) 5 mg PO DAILY 90 days #90 tabs 01/11/25 02/15/25 Rx New Prescriptions to Start Prescriptions: Allergies Allergy/AdvReac Type Severity Reaction Status Date / Time clindamycin (CLINDAMYCIN) Allergy Severe Anaphylaxis Verified 01/15/25 06:49 Penicillins (PENICILLINS) Allergy Severe S-ANAPHYLAX Verified 01/15/25 06:49 IS doxycycline Allergy Mild Vomiting Verified 01/15/25 06:49 aspirin (ASPIRIN) Allergy Unknown BLEEDING/BR Verified 01/15/25 06:49 UISING Assessment and Plan *Assessment and plan (1) Degenerative disc disease, lumbar: Status: Acute Category: Medical Code(s): M51.369 - Other intervertebral disc degeneration, lumbar region without mention of lumbar back pain or lower extremity pain Plan Patient was able to have all his sutures and michelle removed. Patient has previously had issues with Steri-Strips so we did apply Band-Aids and skin glue. Patient was counseled that he is still on his postop restrictions the full 6 weeks. Including no submerging in water until his incisions are fully healed, minimal bending, twisting and lifting and to continue to use his abdominal binder as needed to prevent seroma formation. Patient was counseled today that there is no seroma present at today's visit and that he can take more breaks from the abdominal binder. Patient will be given 2 follow-up appointments today 1 for a 1 month which will be the end of his postop restrictions and then 1 for his next intrathecal refill. Patient agrees with this plan of care. Patient has been instructed to contact the clinic with any concerns before the next appointment. Dr. Boyle has reviewed this note and agrees with this plan of care. This note was dictated using voice recognition software and make contain errors or omissions. All injections are used with Lidocaine, Bupivacaine and dexamethasone. Occasionally urine drug screen is needed to verify patient's compliance with our office pain contract. This is ordered based off specific treatments related to chronic pain with the potential to abuse certain medications.
[2025-02-15 15:11] VITALS: BP 172/100; PULSE 78; RESP 18; O2SAT 99; BMI 34.2
== END 2025-02-15 23:59 | disposition home or self-care (01) ==
LOC: SC.PAIN 14:29
PROVIDERS: PCP Internal Medicine Adolescent Medicine; Visit Provider Nurse Practitioner Family
DX: M51.369 Other intervertebral disc degeneration, lumbar region without mention of lumbar back pain or lower extremity pain (principal); Z96.652 Presence of left artificial knee joint; Z87.891 Personal history of nicotine dependence
CPT/HCPCS: 99212; 99213; G0463

== ENCOUNTER 2025-02-18 13:16 | Day surgery (SDC) | payer OTHER, BC, SELFPAY ==
--- NOTE | 2025-02-18 13:26 | P.HP_ITS ---
History of Present Illness *Admission Date: 02/18/25 *Reason for visit:: Intrathecal refill; DDD *History of present illness: Same [facility] Disclaimer: The information contained in this section may have been updated after the patient was seen, as this information can be updated by other users. Medical History Prostate cancer Stroke Surgical History H/O knee surgery 3 ON LEFT 2 ON RIGHT History of left knee replacement H/O neck surgery X2 History of prostatectomy 2013, Dr. 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 current occupational exposures/hazards: No caffeine: Yes Have you lived/traveled outside US in past 30 days?: No Contact w/someone who lives/traveled outside US past 30 days?: No Exposure to someone with infectious disease in past 14 days?: No Do you have a fever (greater than 100.4 F or 38 C)?: No Have you tested positive for COVID-19?: No Exposed to someone with COVID-19 in past 14 days?: No Do you have a sore throat?: No Do you have a cough?: No Do you have any weakness?: No Do you have any diarrhea?: No Are you experiencing any unusual bleeding?: No Do you have any muscle aches/pain?: No Do you have any abdominal pain?: No Are you experiencing loss of taste or smell?: No Other Medical History Have you received the Flu Vaccine for this season: No Have you received the Pneumonia Vaccine: Yes Review of Systems Review of Systems Review of systems:: pertinent systems reviewed and negative unless documented below Review of systems (narrative): Review of Systems: General: No recent weight changes, no fever, no sleep disturbances Respiratory: No cough, no shortness of air, no recurring pulmonary infections Cardiovascular/peripheral vascular: No chest pain, no palpitations, no edema, no shortness of breath Gastrointestinal: No new onset incontinence, normal bowel movements reported Genitourinary: No new onset incontinence Musculoskeletal: Chronic back pain Psychiatric: [Normal mood/affect] Neurological: [Denies weakness in extremities], [denies balance issues] Meds Home Medications and Allergies Home Medications ?Medication ?Instructions ?Recorded ?Confirmed ?Type pitavastatin calcium 2 mg tablet 2 mg PO DAILY Hypertension 09/05/20 02/15/25 History hydromorphone (PF) 2 mg/mL 0.12 mg IV CONT PRN chronic pain 01/02/21 02/15/25 History injection syringe testosterone cypionate 200 mg/mL 100 mg IM WEEKLY 09/05/23 02/15/25 History intramuscular oil rosuvastatin 5 mg tablet 5 mg PO DAILY 02/12/24 02/15/25 History hydrochlorothiazide 25 mg tablet 50 mg PO DAILY blood pressure 09/17/24 02/15/25 History celecoxib 200 mg capsule 200 mg PO DAILY 12/28/24 02/15/25 History escitalopram oxalate 10 mg tablet 10 mg PO DAILY 12/28/24 02/15/25 History tadalafil 5 mg tablet (Cialis) 5 mg PO DAILY 90 days #90 tabs 01/11/25 02/15/25 Rx New Prescriptions to Start Prescriptions: Allergies Allergy/AdvReac Type Severity Reaction Status Date / Time clindamycin (CLINDAMYCIN) Allergy Severe Anaphylaxis Verified 01/15/25 06:49 Penicillins (PENICILLINS) Allergy Severe S-ANAPHYLAX Verified 01/15/25 06:49 IS doxycycline Allergy Mild Vomiting Verified 01/15/25 06:49 aspirin (ASPIRIN) Allergy Unknown BLEEDING/BR Verified 01/15/25 06:49 UISING Exam Constitutional Constitutional: no acute distress *Routine HEENT Exam Head: Present normocephalic and atraumatic Eye: Present PERRL ENT: Present mucous membranes moist *Routine Neck Exam Neck: Present supple *Routine Respiratory Exam Respiratory: Present CTA bilaterally *Routine Cardiovascular Exam Cardiovascular: Present RRR *Routine Abdominal Exam Abdominal: Present soft *Routine Rectal Exam Rectal:: deferred *Routine Genitalia Exam Genitalia:: normal male Routine Back/Spine/Pelvis Exam Back/Spine: Present pain with flexion *Routine Skin Exam Skin: Present intact, dry and warm *Routine Neurological Exam Neurological: Present alert and oriented X3 Routine Psychiatric Exam Psychiatric: Present normal affect and normal thought process Assessment and Plan *Assessment and plan (1) Degenerative disc disease, lumbar: Status: Acute Category: Medical Code(s): M51.369 - Other intervertebral disc degeneration, lumbar region without mention of lumbar back pain or lower extremity pain Plan Patient has been instructed to contact the clinic with any concerns before the next appointment. Dr. Boyle has reviewed this note and agrees with this plan of care. This note was dictated using voice recognition software and make contain errors or omissions. All injections are used with Lidocaine, Bupivacaine and dexamethasone. Occasionally urine drug screen is needed to verify patient's compliance with our office pain contract. This is ordered based off specific treatments related to chronic pain with the potential to abuse certain medications.
[2025-02-18 13:30] VITALS: BP 134/71; PULSE 81; RESP 16; O2SAT 95; BMI 34.2
--- NOTE | 2025-02-18 13:31 | P.PCN_ITS ---
Procedure Date: 02/18/25 Time: 13:36 Anesthesiologist:: Kiley Moralez APRN Complications:: None Pre-procedure Diagnosis:: Degenerative disc disease of lumbar spine with lumbar radiculopathy symptoms Post-procedure Diagnosis:: Same Indications for Procedure:: Patient is a pleasant 64-year-old male who presents today for intrathecal refill and reprogram. Today overall he states that his back is doing fine. He is still having some right knee pain related to his total knee replacement. He does still state that overall his pump is working wonderful compared to what the previous one had done. Patient is currently managed with Dilaudid 5 mg/mL with a daily dose of 2.502 mg/day. He denies any side effects. Patient has gotten some short-term doses for pain related to his knee pain from his orthopedic provider. His Fazal has been reviewed and is appropriate. Physical Exam: General: Alert and oriented x3, no acute distress, pleasant and cooperative Lungs: Respirations even and unlabored, symmetrical chest expansion Eyes: PERRL Musculoskeletal: Flexion and extension of lumbar [spine] somewhat guarded secondary to pain, [antalgic gait noted] Neurological: Speech clear, no gross sensory deficit Skin: Lateral incision is clean, dry with 1 staple intact Procedure Details:: Informed consent was obtained and the risk and benefits of the procedure were explained to the patient. The patient had noninvasive monitoring placed inc luding noninvasive blood pressure cuff and pulse oximeter. Patient's pump was interrogated. The area over the pump was cleansed with chlorhexidine as a cleansing solution. In sterile fashion the pump was accessed with a 22-gauge needle. Approximately 2 mls of the pump solution was removed and discarded appropriately. The pump was then refilled with 20 mL's of Dilaudid 5 mg/mL. The needle was withdrawn and a bandage was placed over the puncture site. The infusion rate was reprogrammed and continued at its current dosage. The patient tolerated well with no complication. Plan and Disposition:: Patient tolerated the procedure well with no complications and was discharged neurologically intact. I did director of group counseling program him that the lateral incision does still have areas along the sides of the staple that are a little bit farther apart than I would like. We did apply additional skin glue and Band-Aids in a downward motion to pull the incision closer together. I have counseled him to watch for any signs of infection including fever, increased redness, swelling, drainage or any other concerns. He was counseled to call our office if there is any concern. We will plan on seeing him back around the first week of February to evaluate the incision site. Patient agrees with this plan of care. Patient will return to clinic on or before their next intrathecal refill date. We will see the patient back in the clinic at the next intrathecal refill. Patient has been instructed to contact the clinic with any concerns before the next appointment. Dr. Boyle has reviewed this note and agrees with this plan of care. This note was dictated using voice recognition software and make contain errors or omissions. -- It Is medically necessary for this patient to continue to have their intrathecal pump refilled at regular intervals. This patient had an intrathecal pain pump implanted after meeting criteria of chronic intractable pain for greater than 3 months and failing conservative treatments. Patient has committed and been compliant to the treatment plan and all planned follow up care. Since implantation of the intrathecal pain pump, the patient has had decreased pain and been more functional. Oral medications have been reduced including intake of oral opioids. Patient continues to do well with intrathecal therapy with decrease in pain symptoms and increase in functional status. Stopping intrathecal medications can lead to life threatening withdrawal, seizures, cardiac arrest, severe pain, and possible . Pumps that are not refilled at regular intervals can be damages and cause and need for replacement. We continually titrate dose and concentration to optimize pain relief and function. We are limited in concentration for certain drugs to safely deliver medications through the pump and stay within the recommendations from the Polyanalgesic Consensus Committee Guidelines. Depending on dose and concentration these pumps may need to be refilled sooner than 3 months as we titrate. A UDS is needed to verify patient's compliance with our office pain contract. This is ordered based off specific treatments related to chronic pain with the potential to abuse certain medications.
[2025-02-18 13:51] VITALS: BP 129/74; PULSE 82; RESP 18; O2SAT 95
[2025-02-18 14:30] VITALS: BP 129/74; PULSE 82; RESP 16; O2SAT 95
== END 2025-02-18 14:35 | disposition home or self-care (01) ==
PROVIDERS: PCP Internal Medicine Adolescent Medicine; Visit Provider Nurse Practitioner Family
DX: M51.16 Intervertebral disc disorders with radiculopathy, lumbar region (principal)
CPT/HCPCS: 62370

== ENCOUNTER 2025-03-02 10:44 | Outpatient (POV) | payer BC, SELFPAY ==
--- OUTSIDE RECORDS SUMMARY | 2025-03-02 10:47 | XMS_ITS | Data Portability ---
Author Organization [facility] & Allie WOLF ADMIN Address [address] [place] [id number] Assessment No assessment recorded. Plan of Treatment Reminders Order Date Submit Date Provider Last Modified By Organization Details Last Modified Time Details Appointments None recorded. Lab urinalysis , dipstick 2022 023 [email or web address] [facility], [address] [place] [address], [phone], 12:16:45 Referral None recorded. Procedures None recorded. Surgeries None recorded. Imaging None recorded. Medication Orders None recorded. Patient TargetsNo targets recorded. Patient InstructionsNo instructions recorded. Reason for Referral None Reported. Results Created Date Observation Date Name Description Value Unit Range Abnormal Flag Note LastModifiedBy Organization Detail LastModifiedTime 01/16/2001/15/2023 urina lysis , dipst ick Leukocytes (reference range) negati ve Not Available [address], [address], 01/15/2023 11:27:00 01/16/20 23 01/15/2023 urina lysis , dipst ick Nitrite (reference range:) negati ve Not Available [address], [address], 01/15/2023 11:27:00 01/16/20 23 01/15/2023 urina lysis , dipst ick Urobilinogen (reference range) 0.2 Not Available [facility] [address] [place], [place] [address], [place], [address], 01/15/2023 11:27:00 01/16/20 23 01/15/2023 urina lysis , dipst ick Protein (reference range) negati ve Not Available [facility] [address] [place] [address] [address], [place], [address], 01/15/2023 11:27:00 01/16/20 23 01/15/2023 urina lysis , dipst ick pH (reference range 5-8.5) 5.0 Not Available [facility] [address] [place] [address] [address], [place], [address], 01/15/2023 11:27:00 01/16/20 23 01/15/2023 urina lysis , dipst ick Blood (reference range:) negati ve Not Available [address], [place], [address], 01/15/2023 11:27:00 01/16/20 23 01/15/2023 urina lysis , dipst ick Specific [place] (reference range) 1.015 Not Available [facility], [place], [address], 01/15/2023 11:27:00 01/16/20 23 01/15/2023 urina lysis , dipst ick Ketone (reference range) negati ve Not Available [address], [place], [address], 01/15/2023 11:27:00 01/16/20 23 01/15/2023 urina lysis , dipst ick Bilirubin (reference range) negati ve Not Available [address], [place], [address], 01/15/2023 11:27:00 01/16/20 23 01/15/2023 urina lysis , dipst ick Glucose (reference range) negati ve Not Available [facility] [address] [facility] [address], [place], [address], 01/15/2023 11:27:00 01/16/2001/15/2023 urina lysis , dipst ick Color (reference range: yellow-brown ) Yellow Not Available [facility] [address] [facility] [address], [place], [address], 01/15/2023 11:27:00 Result Notes None recorded. Medical [...] Not Available Not Available Not Available Hypodermic [place] 23 gauge x 1 USE DIRECTED TO [...] Available No t Available BD Regular Bevel [place] 22 gauge x 1 USE DIRECTED TO [...] Updated DateTime 3 172.72 cm 30.4 kg/m2 60319.4 7 g 98 [degF] 130 mm[Hg] 72 mm[Hg] Keesha Xiao [facility] & [place] 3 11:21:37 Social History None recorded. Functional Status None recorded. Mental Status None recorded. Family History Nothing Reported. Medical History No medical history recorded. Past Encounters Encounter ID Performer Location Encounter Start Date Encounter Closed Date Diagnosis/Indication Diagnosis SNOMED-CT Code Diagnosis ICD10 Code Diagnosis Note [id number] Rhoda Calvert NP, [facility] [address] [facility] [place] [address] 01/15/2023 10:35:22 01/15/2023 11:35:07 History of malignant neoplasm of prostate 323226964 Z85.[address] Solitario office to get PSA resultsRTC in 1 year for f/u Nocturia 400888450 R35.1 Erectile dysfunction [id number] F52.21 Health Concerns Section Related Observation LastModified by Organization Detai ls LastModified Time None Recorded Concern Status LastModified by Organization Details LastModified Time None Recorded Advance Directives Directive None Recorded Payers Insurance Date Sequence Insurance Name Policy Number Policy Domínguez Covered Member ID Domínguez Member ID Guarantor Name 01/15/2023 1 [place] [id number] Luisa Kebede Skeens [id number] Luisa Kebede Skeens 08/30/2021 1 [place] [id number] Luisa Kebede Skeens [id number] Luisa Kebede Skeens 02/05/2025 1 [place] [id number] Luisa Kebede Skeens [id number] Luisa Kebede Skeens 01/15/2023 1 [place] [id number] Luisa Kebede Skeens [id number] Luisa Dexters Notes Date Note Type Note Provider Name and Address Organization Details Recorded Time 01/15/2023 text/html [id number] RTC for annual f/u of h/o CAP. Pt was last seen on 08/30/2021. Pt underwent RRP on 05/13/[address] Herrera in [place]. Reports Dr Jeffries did PSA in Oct 2022, states was undectable. States urinary stream is good. Nocturia x2. Denies any dysuria, gross hematuria, wt loss, or bone pain. Pt is on Cialis 5mg daily r/t ED. Reports the medication is effective without any overt SEs. Pt is on Testosterone injections 1cc every other week overseen by Dr Jeffries. Rhoda Calvert, [employer], [address] [facility], [place], [address], [facility] [place] & [place] 01/15/2023 11:36:03
--- NOTE | 2025-03-02 11:13 | EXP.PAIN.SOA ---
[facility] Disclaimer: The information contained in this section may have been updated after the patient was seen, as this information can be updated by other users. Medical History Prostate cancer Stroke Surgical History H/O knee surgery 3 ON LEFT 2 ON RIGHT History of left knee replacement H/O neck surgery X2 History of prostatectomy 2013, Dr. 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 current occupational exposures/hazards: No caffeine: Yes Have you lived/traveled outside US in past 30 days?: No Contact w/someone who lives/traveled outside US past 30 days?: No Exposure to someone with infectious disease in past 14 days?: No Do you have a fever (greater than 100.4 F or 38 C)?: No Have you tested positive for COVID-19?: No Exposed to someone with COVID-19 in past 14 days?: No Do you have a sore throat?: No Do you have a cough?: No Do you have any weakness?: No Do you have any diarrhea?: No Are you experiencing any unusual bleeding?: No Do you have any muscle aches/pain?: No Do you have any abdominal pain?: No Are you experiencing loss of taste or smell?: No PM Subjective & Objective Subjective Subjective:: Patient is a pleasant 64-year-old male who presents today for wound check. Today he rates his pain a 1 out of 10. He denies any new trauma or injury. Patient states he is doing well with the overall dosage of his pump. Patient is currently managed with Dilaudid 5 mg/mL with a daily dose of 2.502 mg/day. He states overall he thinks his incision has done well from our last appointment and had no problems. He states the 1 staple that was remaining actually ended up coming out on its own. His Fazal has been reviewed and is appropriate. Review of Systems: General: No recent weight changes, no fever, no sleep disturbances Respiratory: No cough, no shortness of air, no recurring pulmonary infections Cardiovascular/peripheral vascular: No chest pain, no palpitations, no edema, no shortness of breath Gastrointestinal: No new onset incontinence, normal bowel movements reported Genitourinary: No new onset incontinence Musculoskeletal: Low back pain Psychiatric: [Normal mood/affect] Neurological: [Denies weakness in extremities], [denies balance issues] Pain at rest (0-10 scale): 1 Objective Objective:: Physical Exam: General: Alert and oriented x3, no acute distress, pleasant and cooperative Lungs: Respirations even and unlabored, symmetrical chest expansion Eyes: PERRL Musculoskeletal: Flexion and extension of lumbar [spine] somewhat guarded secondary to pain, [antalgic gait noted] Neurological: Speech clear, no gross sensory deficit Skin: Incision site is clean, dry, well-approximated with minimal erythema Has patient had previous pain injection?: No Conservative treatment options previously tried: Home exercise plan Length of treatment: Longer than 12 weeks Meds Home Medications and Allergies Home Medications ?Medication ?Instructions ?Recorded ?Confirmed ?Type pitavastatin calcium 2 mg tablet 2 mg PO DAILY Hypertension 09/05/20 02/15/25 History hydromorphone (PF) 2 mg/mL 0.12 mg IV CONT PRN chronic pain 01/02/21 02/15/25 History injection syringe testosterone cypionate 200 mg/mL 100 mg IM WEEKLY 09/05/23 02/15/25 History intramuscular oil rosuvastatin 5 mg tablet 5 mg PO DAILY 02/12/24 02/15/25 History hydrochlorothiazide 25 mg tablet 50 mg PO DAILY blood pressure 09/17/24 02/15/25 History celecoxib 200 mg capsule 200 mg PO DAILY 12/28/24 02/15/25 History escitalopram oxalate 10 mg tablet 10 mg PO DAILY 12/28/24 02/15/25 History tadalafil 5 mg tablet (Cialis) 5 mg PO DAILY 90 days #90 tabs 01/11/25 02/15/25 Rx New Prescriptions to Start Prescriptions: Allergies Allergy/AdvReac Type Severity Reaction Status Date / Time clindamycin (CLINDAMYCIN) Allergy Severe Anaphylaxis Verified 01/15/25 06:49 Penicillins (PENICILLINS) Allergy Severe S-ANAPHYLAX Verified 01/15/25 06:49 IS doxycycline Allergy Mild Vomiting Verified 01/15/25 06:49 aspirin (ASPIRIN) Allergy Unknown BLEEDING/BR Verified 01/15/25 06:49 UISING Assessment and Plan *Assessment and plan (1) Degenerative disc disease, lumbar: Status: Acute Category: Medical Code(s): M51.369 - Other intervertebral disc degeneration, lumbar region without mention of lumbar back pain or lower extremity pain Plan Patient's incision has overall healed and is doing well. I did general counsel him that I would still recommend waiting an additional couple of weeks before submerging in water such as a hot tub, swimming pool or tub bathing. Patient acknowledges understanding agrees with this plan of care. Patient is only getting a little over a month with his intrathecal refills and I will increase his concentration for his upcoming appointment to 7.5 mg/mL. Patient will return to clinic for his next intrathecal refill date. Patient will return to clinic on or before their next intrathecal refill date. We will see the patient back in the clinic at the next intrathecal refill. Patient has been instructed to contact the clinic with any concerns before the next appointment. Dr. Boyle has reviewed this note and agrees with this plan of care. This note was dictated using voice recognition software and make contain errors or omissions. -- It Is medically necessary for this patient to continue to have their intrathecal pump refilled at regular intervals. This patient had an intrathecal pain pump implanted after meeting criteria of chronic intractable pain for greater than 3 months and failing conservative treatments. Patient has committed and been compliant to the treatment plan and all planned follow up care. Since implantation of the intrathecal pain pump, the patient has had decreased pain and been more functional. Oral medications have been reduced including intake of oral opioids. Patient continues to do well with intrathecal therapy with decrease in pain symptoms and increase in functional status. Stopping intrathecal medications can lead to life threatening withdrawal, seizures, cardiac arrest, severe pain, and possible . Pumps that are not refilled at regular intervals can be damages and cause and need for replacement. We continually titrate dose and concentration to optimize pain relief and function. We are limited in concentration for certain drugs to safely deliver medications through the pump and stay within the recommendations from the Polyanalgesic Consensus Committee Guidelines. Depending on dose and concentration these pumps may need to be refilled sooner than 3 months as we titrate. A UDS is needed to verify patient's compliance with our office pain contract. This is ordered based off specific treatments related to chronic pain with the potential to abuse certain medications.
[2025-03-02 11:36] VITALS: BP 160/88; PULSE 77; RESP 18; O2SAT 95; BMI 32.8
== END 2025-03-02 23:59 | disposition home or self-care (01) ==
LOC: SC.PAIN 10:45
PROVIDERS: PCP Internal Medicine Adolescent Medicine; Visit Provider Nurse Practitioner Family
DX: M51.360 Other intervertebral disc degeneration, lumbar region with discogenic back pain only (principal); Z79.891 Long term (current) use of opiate analgesic
CPT/HCPCS: 99212; G0463

== ENCOUNTER 2025-03-12 10:27 | Day surgery (SDC) | payer OTHER, BC, SELFPAY ==
[2025-03-12 10:45] VITALS: BP 117/76; PULSE 60; RESP 16; O2SAT 100; BMI 32.1
--- NOTE | 2025-03-12 10:50 | EXP.PM.HP ---
History of Present Illness *Admission Date: 03/12/25 *Reason for visit:: Intrathecal refill; degenerative disc disease *History of present illness: Same [facility] Disclaimer: The information contained in this section may have been updated after the patient was seen, as this information can be updated by other users. Medical History Prostate cancer Stroke Surgical History H/O knee surgery 3 ON LEFT 2 ON RIGHT History of left knee replacement H/O neck surgery X2 History of prostatectomy 2013, [facility]. 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 occupational exposures/hazards: No caffeine: Yes Have you lived/traveled outside US in past 30 days?: No Contact w/someone who lives/traveled outside US past 30 days?: No Exposure to someone with infectious disease in past 14 days?: No Do you have a fever (greater than 100.4 F or 38 C)?: No Have you tested positive for COVID-19?: No Exposed to someone with COVID-19 in past 14 days?: No Do you have a sore throat?: No Do you have a cough?: No Do you have any weakness?: No Do you have any diarrhea?: No Are you experiencing any unusual bleeding?: No Do you have any muscle aches/pain?: No Do you have any abdominal pain?: No Are you experiencing loss of taste or smell?: No Other Medical History Have you received the Flu Vaccine for this season: No Have you received the Pneumonia Vaccine: Yes Review of Systems Review of Systems Review of systems:: pertinent systems reviewed and negative unless documented below Review of systems (narrative): Review of Systems: General: No recent weight changes, no fever, no sleep disturbances Respiratory: No cough, no shortness of air, no recurring pulmonary infections Cardiovascular/peripheral vascular: No chest pain, no palpitations, no edema, no shortness of breath Gastrointestinal: No new onset incontinence, normal bowel movements reported Genitourinary: No new onset incontinence Musculoskeletal: Chronic back pain Psychiatric: [Normal mood/affect] Neurological: [Denies weakness in extremities], [denies balance issues] Meds Home Medications and Allergies Home Medications ?Medication ?Instructions ?Recorded ?Confirmed ?Type pitavastatin calcium 2 mg tablet 2 mg PO DAILY Hypertension 09/05/20 03/02/25 History hydromorphone (PF) 2 mg/mL 0.12 mg IV CONT PRN chronic pain 01/02/21 03/02/25 History injection syringe testosterone cypionate 200 mg/mL 100 mg IM WEEKLY 09/05/23 03/02/25 History intramuscular oil rosuvastatin 5 mg tablet 5 mg PO DAILY 02/12/24 03/02/25 History hydrochlorothiazide 25 mg tablet 50 mg PO DAILY blood pressure 09/17/24 03/02/25 History celecoxib 200 mg capsule 200 mg PO DAILY 12/28/24 03/02/25 History escitalopram oxalate 10 mg tablet 10 mg PO DAILY 12/28/24 03/02/25 History tadalafil 5 mg tablet (Cialis) 5 mg PO DAILY 90 days #90 tabs 01/11/25 03/02/25 Rx New Prescriptions to Start Prescriptions: Allergies Allergy/AdvReac Type Severity Reaction Status Date / Time clindamycin (CLINDAMYCIN) Allergy Severe Anaphylaxis Verified 01/15/25 06:49 Penicillins (PENICILLINS) Allergy Severe S-ANAPHYLAX Verified 01/15/25 06:49 IS doxycycline Allergy Mild Vomiting Verified 01/15/25 06:49 aspirin (ASPIRIN) Allergy Unknown BLEEDING/BR Verified 01/15/25 06:49 UISING Exam Constitutional Constitutional: no acute distress *Routine HEENT Exam Head: Present normocephalic and atraumatic Eye: Present PERRL ENT: Present mucous membranes moist *Routine Neck Exam Neck: Present supple *Routine Respiratory Exam Respiratory: Present CTA bilaterally *Routine Cardiovascular Exam Cardiovascular: Present RRR *Routine Abdominal Exam Abdominal: Present soft *Routine Rectal Exam Rectal:: deferred *Routine Genitalia Exam Genitalia:: deferred Routine Back/Spine/Pelvis Exam Back/Spine: Present pain with flexion *Routine Skin Exam Skin: Present intact and warm *Routine Neurological Exam Neurological: Present alert and oriented X3 Routine Psychiatric Exam Psychiatric: Present normal affect and normal thought process Assessment and Plan *Assessment and plan (1) Degenerative disc disease, lumbar: Status: Acute Category: Medical Code(s): M51.369 - Other intervertebral disc degeneration, lumbar region without mention of lumbar back pain or lower extremity pain Plan Patient has been instructed to contact the clinic with any concerns before the next appointment. Dr. Boyle has reviewed this note and agrees with this plan of care. This note was dictated using voice recognition software and make contain errors or omissions. All injections are used with Lidocaine, Bupivacaine and dexamethasone. Occasionally urine drug screen is needed to verify patient's compliance with our office pain contract. This is ordered based off specific treatments related to chronic pain with the potential to abuse certain medications.
[2025-03-12 10:52] VITALS: BP 124/80; PULSE 62; RESP 18; O2SAT 98
--- NOTE | 2025-03-12 10:52 | P.PCN_ITS ---
Procedure Date: 03/12/25 Time: 11:10 Anesthesiologist:: Kiley Moralez APRN Complications:: None Pre-procedure Diagnosis:: Degenerative disc disease of lumbar spine Post-procedure Diagnosis:: Same Indications for Procedure:: Patient is a pleasant 64-year-old male who presents today for intrathecal refill and reprogram. Today he rates his pain a 2 or 3 out of 10. He denies any new injuries or trauma. He does state that he has been doing well from his knee surgery male and he has gotten all of his range of motion back. Patient was given a 6-week follow-up. Patient is currently managed with Dilaudid 5 mg/mL with a daily dose of 2.502 milligrams per day. He denies any side effects. Patient does state in the past that he has been on periodic flow and would like to see about getting back on this because he felt like it did give better coverage. His Fazal has been reviewed and is appropriate. physical Exam: General: Alert and oriented x3, no acute distress, pleasant and cooperative Lungs: Respirations even and unlabored, symmetrical chest expansion Eyes: PERRL Musculoskeletal: Flexion and extension of lumbar [spine] somewhat guarded secondary to pain, [antalgic gait noted] Neurological: Speech clear, no gross sensory deficit Procedure Details:: Informed consent was obtained and the risk and benefits of the procedure were explained to the patient. The patient had noninvasive monitoring placed including noninvasive blood pressure cuff and pulse oximeter. Patient's pump was interrogated. The area over the pump was cleansed with chlorhexidine as a cleansing solution. In sterile fashion the pump was accessed with a 22-gauge needle. Approximately 8.5 mls of the pump solution was removed and discarded appropriately. The pump was then refilled with 20 mL's of Dilaudid 7.5 mg/mL. The needle was withdrawn and a bandage was placed over the puncture site. The infusion rate was reprogrammed and continued. The patient tolerated well with no complication. Plan and Disposition:: Patient tolerated the procedure well with no complications and was discharged neurologically intact. We did discuss that we are changing the concentration today to 7.5 mg/mL to increase his intrathecal refills. Patient was counseled that it we will give a bridge bolus and during that time he will not be able to use his bolus device. We did discuss about going back to periodic flow however he was counseled when we do the concentration change we cannot switch it from continuous and that we would have to make an additional appointment for this option. Patient acknowledges understanding. He is going to [place] coming up and states he will call us when he gets back to see about getting on her schedule to change to periodic flow. Patient will return to clinic on or before their next intrathecal refill date. We will see the patient back in the clinic at the next intrathecal refill. Patient has been instructed to contact the clinic with any concerns before the next appointment. Dr. Boyle has reviewed this note and agrees with this plan of care. This note was dictated using voice recognition software and make contain errors or omissions. -- It Is medically necessary for this patient to continue to have their intrathecal pump refilled at regular intervals. This patient had an intrathecal pain pump implanted after meeting criteria of chronic intractable pain for greater than 3 months and failing conservative treatments. Patient has committed and been compliant to the treatment plan and all planned follow up care. Since implantation of the intrathecal pain pump, the patient has had decreased pain and been more functional. Oral medications have been reduced including intake of oral opioids. Patient continues to do well with intrathecal therapy with decr ease in pain symptoms and increase in functional status. Stopping intrathecal medications can lead to life threatening withdrawal, seizures, cardiac arrest, severe pain, and possible . Pumps that are not refilled at regular intervals can be damages and cause and need for replacement. We continually titrate dose and concentration to optimize pain relief and function. We are limited in concentration for certain drugs to safely deliver medications through the pump and stay within the recommendations from the Polyanalgesic Consensus Committee Guidelines. Depending on dose and concentration these pumps may need to be refilled sooner than 3 months as we titrate. A UDS is needed to verify patient's compliance with our office pain contract. This is ordered based off specific treatments related to chronic pain with the potential to abuse certain medications.
[2025-03-12 11:15] VITALS: BP 118/85; PULSE 61; RESP 16; O2SAT 97
== END 2025-03-12 11:15 | disposition home or self-care (01) ==
PROVIDERS: PCP Internal Medicine Adolescent Medicine; Visit Provider Nurse Practitioner Family
DX: Z45.1 Encounter for adjustment and management of infusion pump (principal); Z85.46 Personal history of malignant neoplasm of prostate; Z86.73 Personal history of transient ischemic attack (TIA), and cerebral infarction without residual deficits; Z87.891 Personal history of nicotine dependence; Z79.899 Other long term (current) drug therapy; Z79.890 Hormone replacement therapy; Z88.6 Allergy status to analgesic agent; Z88.1 Allergy status to other antibiotic agents; Z88.0 Allergy status to penicillin; Z88.8 Allergy status to other drugs, medicaments and biological substances
CPT/HCPCS: 62370

== ENCOUNTER 2025-04-09 09:26 | Outpatient (CLI) | payer BC, SELFPAY ==
--- OUTSIDE RECORDS SUMMARY | 2025-04-09 09:28 | XMS_ITS | Clinical Summary ---
Author Organization [facility] Address [address] [place] [address] [place] [address] Care Team Providers Care Mining Professionals Name Role Phone Pcp, None MD Primary Care Provider [phone] Allergies Active Allergy Reactions Criticality Noted Date Comments Aspirin Other (See Comments) 04/27/2014 bruising Clindamycin Hcl Anaphylaxis,Diarrhea High 04/27/2014 C diff Levofloxacin Itch,Rash 07/01/2015 Nsaids Kidney Problem 08/19/2015 Penicillins Anaphylaxis High 04/27/2014 Simvastatin Muscle Aches 07/01/2015 Medications omeprazole (PRILOSEC) 40 MG CPDR Take 40 mg by mouth daily. Active rosuvastatin (CRESTOR) 10 MG TABS Take 10 mg by mouth daily. bedtime Active gabapentin (NEURONTIN) 600 MG TABS Take 600 mg by mouth at bedtime. Active lisinopril (PRINIVIL,ZESTR IL) 20 MG TABS Take 20 mg by mouth daily. Active ezetimibe (ZETIA) 10 MG TABS Take 10 mg by mouth daily. Active B Complex Vitamins (VITAMIN B COMPLEX PO) Take 1 tablet by mouth daily. Active vitamin D (CHOLECALCIFERO L) 1000 UNITS TABS Take 1,000 Units by mouth daily. Active Coenzyme Q10 (CO Q10) 100 MG CAPS Take 1 tablet by mouth daily. Active sildenafil (REVATIO) 20 MG TABS Take 20 mg by mouth 3 (three) times daily. Active tramadol (ULTRAM) 50 MG TABS Take 50 mg by mouth 4 (four) times daily. 2 tabs Active oxycodone-aceta minophen (PERCOCET) 5-325 MG TABS Take 1-2 tablets by mouth every 4 (four) hours as needed (PAIN). 50 tablet 0 08/24/2015 Active hydrocodone-mariluz taminophen (NORCO) 5-325 MG TABS Take 1-2 tablets by mouth every 4 (four) hours as needed. 50 tablet 0 09/01/2015 Active diclofenac (VOLTAREN) 75 MG TBEC Take 1 tablet by mouth 2 (two) times daily as needed. 60 tablet 2 02/09/2016 Active Active Problems Problem Noted Date Diagnosed Date Malignant neoplasm of prostate 05/14/2014 Cancer Staging:Clinical: T1c, NX, M0 - Unsigned Pathologic:Stage IIB(T2c, NX, cM0) - Unsigned Immunizations Immunization Administration Dates Next Due Influenza Whole, IM 01/28/2014 Pneumococcal Polysaccharide (PPV23) Pneumovax-23 01/28/2014 Social History Tobacco Use Types Packs/Day Years Used Date Smoking Tobacco: Former Cigarettes Q uit: 09/30/1996 Smokeless Tobacco: Never Alcohol Use Standard Drinks/Week Comments Yes 0 (1 standard drink = 0.6 oz pur e alcohol) OCCASIONAL Sex and Gender Information Value Date Recorded Sex Assigned at Not on file Legal Sex Male 1:11 PM EDT Gender Identity Not on file Sexual Orientation Not on file Last Filed Vital Signs Vital Sign Reading Time Taken Comments Blood Pressure 189/110 05/10/2016 8:09 AM EDT Pulse 78 05/10/2016 8:09 AM EDT Temperature 36.2 C (97.2 F) 08/24/2015 11:18 AM EST Respiratory Rate 26 08/24/2015 12:00 PM EST Oxygen Saturation 100% 08/24/2015 12:00 PM EST Inhaled Oxygen Concentration - - Weight 90.3 kg (199 lb) 05/10/2016 8:09 AM EDT Height 172.7 cm (5' 8 ) 05/10/2016 8:09 AM EDT Body Mass Index 30.26 05/10/2016 8:09 AM EDT Plan of Treatment Health Maintenance Due Date Last Done Comments Hepatitis C Screening 1960 DTap,Tdap,and Td (1 - Tdap) 1973 Colonoscopy 2007 PSA YEARLY 2012 Shingrix (#1) 2012 Pneumococcal 50+ (2 of 2 - PCV) 01/28/2015 4 Influenza Vaccine (Season Ended) 2025 01/29/20 14 RSV Vaccine (60+ or ) (1 - 1-dose 75+ series) 2037 Pneumococcal 0-49 Discontinued 01/28/2014 HPV Aged Out No longer eligi ble based on patient's age to complete this topic Meningococcal conjugate kar nt 4 (MCV4) Aged Out No longer eligible b ased on patient's age to complete this topic RSV Immunization (<20 months) Aged Out No longer eligible based on patient's age to complete this topic Medical Devices Implanted Type Area Digital Marketing Executive Device Identifier Shelf Expiration Date Model / Serial / Lot Weston Swivelmartin Sp [id number] - [id number] Implanted:Qty: 1 on 08/24/2015 by Armando Olivas DO at [facility] Left: Shoulder ARTHREX ARTHROSCOPY [facility] [id number] / / [id number] Osteoraptor 2.3 Suture Weston W/ One Ultrabraid #2 Suture Implanted:Qty: 1 on 08/24/2015 by Armando Olivas DO at [facility] Left: Shoulder [employer] [id number] / / [id number] Insurance [email or web address] ALL OTHERS NOT MEDICARE * Guarantor: Luisa Serna Account Type Relation to Patient Date of Phone Billing Address Workers Comp Self 1960 [phone] (Work) [address] [place] [address] [employer] ALL OTHERS NOT MEDICARE [address] [facility] Advance Directives * Full Code (Latest Code Status on File) Date Activated Date Inactivated Comments 05/13/2014 7:01 PM 05/14/2014 8:28 PM Care Teams Mining Professionals Relationship Specialty Start Date End Date Pcp, MD Rhiannon PCP - General Internal Medicine 05/01/16
--- OUTSIDE RECORDS SUMMARY | 2025-04-09 09:28 | XMS_ITS | Referral Summary ---
Author Organization [facility] Address [address] [place] [address] [place] [address] Care Team Providers Care Candy Separator Enrobing Name Role Phone Pcp, None MD Primary Care Provider [phone] Allergies Active Allergy Reactions Criticality Noted Date [...] Mass Index 30.26 05/10/2016 8:09 AM EDT Functional Status * Are you deaf or do you have serious difficulty hearing? Answer Date of Assessment Author No 08/24/2015 7:51 AM Jose Luis Varma, Registered Nurse * Are you blind or do you have serious difficulty seeing, even when wearing glasses? Answer Date of Assessment Author No 08/24/2015 7:51 AM EST BeyJose Luis kirk Registered Nurse * Do you have serious difficulty walking or climbing stairs? (5 years old or older) Answer Date of Assessment Author No 08/24/2015 7:51 AM Jose Luis Varma Registered Nurse * Do you have difficulty dressing or bathing? (5 years old or older) Answer Date of Assessment Author No 08/24/2015 7:51 AM Jose Luis Varma Registered Nurse * Because of a physical, mental, or emotional condition, do you have difficulty doing errands alone such as visiting a doctor???s office or shopping? (15 years old or older) Answer Date of Assessment Author No 08/24/2015 7:51 AM Jose Luis Varma Registered Nurse Mental Status * Because of a physical, mental, or emotional condition, do you have serious difficulty concentrating, remembering, or making decisions? (5 years old or older) Answer Entry Date Author No 08/24/2015 7:51 AM Jose Luis Varma Registered Nurse Plan of Treatment Not on file Medical Devices Implanted Type Area Intelligence Consultant Device Identifier Shelf Expiration Date Model / Serial / Lot [place] Apple Sp Ar-2324bcm - [id number] Implanted:Qty: 1 on 08/24/2015 by Armando Olivas DO at [facility] Left: Shoulder ARTHREX ARTHROSCOPY [facility] [id number] / / [id number] Osteoraptor 2.3 Suture [place] W/ One Ultrabraid #2 Suture Implanted:Qty: 1 on 08/24/2015 by Armando Olivas DO at [facility] Left: Shoulder [employer] [id number] / / [id number] Administered Medications Insurance ALL OTHERS NOT MEDICARE * Guarantor: Luisa Serna Account Type Relation to Patient Date of Phone Billing Address Workers Comp Self 1960 [phone] (Work) [address] [place] [address] [facility] [employer] [place] ALL OTHERS NOT MEDICARE Care Teams Candy Separator Enrobing Relationship Specialty Start Date End Date Pcp, MD Rhiannon PCP - General Internal Medicine 05/01/16
--- OUTSIDE RECORDS SUMMARY | 2025-04-09 09:28 | XMS_ITS | Encounter Summary ---
Author Organization [facility] Address [address] [email or web address] [address] Care Team Providers Care Podiatric Physician Name Role Phone Rojas Tony MD Primary Care Provider Leylaa morgan Encounter Details Date Type Department Care Team (Late st Contact Info) Description 08/26/2013 PAT Telephone [facility] PAT [address] [place] [address] Kristen Reagan, RN Social History Tobacco Use Types Packs/Day Years Used Date Smoking Tobacco: Never Assessed Sex and Gender Information Value Date Recorded Sex Assigned at Not on file Legal Sex Male 10:51 PM EST Gender Identity Not on file Sexual Orientation Not on file documented as of this encounter Plan of Treatment Not on file documented as of this encounter Visit Diagnoses Not on filedocumented in this encounter Care Teams Podiatric Physician Relationship Specialty Start Date End Date Rojas Tony MD PCP - General 09/01/13 10/15/19 documented as of this encounter
--- OUTSIDE RECORDS SUMMARY | 2025-04-09 09:29 | XMS_ITS | Clinical Summary ---
Author Organization [facility] Address [address] [place] [address] Care Team Providers Care Plans Examiner Name Role Phone Yo Staples MD Primary Care Provider [phone] Allergies Active Allergy Reactions Criticality Noted Date Comments Aspirin Other - please docum ent in the comment field Low 04/20/2022 Bleeding/Bruising Clindamycin Unknown - Patient st ates they do not know rxn details Low 04/20/2022 Doxycycline Other - please docum ent in the comment field Low 04/20/2022 Vomiting Nsaids Other - please docum ent in the comment field Low 08/19/2015 Penicillins Anaphylaxis High 04/20/2022 Medications hydroCHLOROthia zide (HYDRODiuril) 25 MG tablet Take 1 tablet (25 mg) by mouth 1 (one) time each day. 06/05/2024 Active escitalopram (Lexapro) 10 MG tablet Take 1 tablet (10 mg) by mouth 1 (one) time each day. Active rosuvastatin (Crestor) 5 MG tablet Take 1 tablet (5 mg) by mouth 1 (one) time each day. Active testosterone cypionate (Depo-Testoster one) 200 MG/ML injection Inject 1 mL (200 mg) into the muscle 1 (one) time per week. 05/19/2024 Active losartan (Cozaar) 100 MG tablet Take 1 tablet (100 mg) by mouth 1 (one) time each day. Active tadalafil (Cialis) 5 MG tablet Take 1 tablet (5 mg) by mouth 1 (one) time each day. Active celecoxib (CeleBREX) 200 MG capsule Take 1 capsule (200 mg) by mouth daily. 11/30/2024 Active Active Problems Problem Noted Date Diagnosed Date Obesity (BMI 35.0-39.9 without comorbidity) 11/28 Shortness of breath 12/10/2024 Lumbar stenosis with neurogenic claudication Cervical disc displacement 08/19/2015 Overview (11/03/2024): [facility] Lumbar spinal stenosis 08/19/2015 Overview (11/03/2024): [facility]: Spinal enthesopathy 08/19/2015 Overview (11/03/2024): [facility]: Rotator cuff syndrome 08/19/2015 Overview (11/03/2024): [facility] Sprain of left rotator cuff capsule 08/19/2015 Overview (11/03/2024): [facility] Cervical sprain 07/20/2015 Overview (11/03/2024): [facility]: Lumbar strain 07/20/2015 Overview (11/03/2024): [facility]: Strain of left shoulder 07/20/2015 Overview (11/03/2024): [facility]: Left shoulder pain 03/01/2015 Malignant neoplasm of prostate 05/14/2014 Obstructive sleep apnea (adult) (pediatric) 10/02 Overweight 10/29/2011 Social History Tobacco Use Types Packs/Day Years Used Date Smoking Tobacco: Never Passive Smoke Exposure: Never Smokeless Tobacco: Former Snuff Quit: 09/30/2021 Tobacco Cessation:Counseling Given: Not Answered Alcohol Use Standard Drinks/Week Comments Never 0 (1 standard drink = 0.6 oz pur e alcohol) PHQ-2 Answer Date Recorded Patient Health Questionnaire-2 Score 1 12/10/2024 PHQ-9 Answer Date Recorded Patient Health Questionnaire-9 Score 11 08/13/2024 Sex and Gender Information Value Date Recorded Sex Assigned at Not on file Legal Sex Male 12:45 PM EDT Gender Identity Not on file Sexual Orientation Not on file Last Filed Vital Signs Vital Sign Reading Time Taken Comments Blood Pressure 130/77 12/10/2024 2:43 PM EDT Pulse 57 12/10/2024 2:43 PM EDT Temperature - - Respiratory Rate 18 08/13/2024 2:55 PM EST Oxygen Saturation 96% 12/10/2024 2:43 PM EDT Inhaled Oxygen Concentration - - Weight 103 kg (227 lb 4.7 oz) 12/10/2024 2:43 PM EDT Height 170.2 cm (5' 7 ) 12/10/2024 2:43 PM EDT Body Mass Index 35.6 12/10/2024 2:43 PM EDT Plan of Treatment Health Maintenance Due Date Last Done Comments [facility]-HIV Screening 1960 [facility]-Hepatitis C Screening 1962 [facility]-/Child/Adol SDOH Screenings 1962 [facility]- SDOH Screenings 1980 [facility]-Adult SDOH Screenings 1980 [facility]-Hepatitis A Vaccines (1 of 2 - Risk 2-dose series) 1981 CT Colonography 2007 Colonoscopy 2007 FIT-DNA 2007 FIT 2007 FOBT 2007 Sigmoidoscopy 2007 [facility]-Colorectal Cancer Screening 2007 [facility]-Pneumococcal Vaccine: 50 + Years (2 of 2 - PCV) 01/28/2015 01/28/2014 [id number] Vaccine (2 - Cynthia risk series) 02/03/2021 01/06/2021 [facility]-RSV Vaccine: 60+ Years o r (1 - Risk 60-74 years 1-dose series) 2022 [facility]-Influenza Vaccine (#1) 2025 01/28/2014 [facility]-Diabetes: Hemoglobin A1C 07/02/2025 07/02/2024 [facility]-Depression Screening 12/10/2025 025, 08/13/2024 [facility]-DTaP,Tdap,and Td Vaccine s (2 - Td or Tdap) 01/19/2034 01/20/2024 [facility]-Zoster Vaccines Completed 01/20/2024, 01/21/2023 [facility]-Obesity Intervention Completed 025, 08/13/2024, 07/02/2024 HPV Vaccines Aged Out No longer eligi ble based on patient's age to complete this topic [facility]-HIB Vaccines Aged Out No longer e ligible based on patient's age to complete this topic [facility]-IPV Vaccines Aged Out No longer e ligible based on patient's age to complete this topic [facility]-Rotavirus Vaccines Aged Out No lo nger eligible based on patient's age to complete this topic Procedures Procedure Name Priority Date/Time Associated Diagnosis Comments HEMOGLOBIN A1C Routine 07/02/2024 9:26 AM EDT Pulmonary hypertension (CMS/HCC) Bilateral lower extremity edema from Last 3 Months or Most Recently Relevant to Health Maintenance Results * (ABNORMAL) Hemoglobin A1c (07/02/2024 9:26 AM EDT) Hemoglobin A1c 5.7(H) <5.7 % 07/02/2024 10:33 AM EDT [facility] Blood Venous blood specimen / Unknown Venipuncture / Unknown 07/02/2024 9:26 AM EDT 07/02/2024 10:00 AM EDT Narrative [facility] - 07/02/2024 10:33 AM EDT HA1C Interpretive Data: Diagnosis of Diabetes: Diabetic > or = 6.5% Pre-diabetic 5.7 to 6.4% Non-diabetic < or = 5.6% Glycemic Targets for Type I and Type II Diabetics: Non- Adults <7.0% Adults <6.0% Children and Adolescents <7.5% Source: [place] [employer] Association. Standards of medical care in diabetes,2017. Diabetes Care.2017:40 (suppl 1):S1-S135. HbA1c assay performed by an ion-exchange chromatography method that is certified traceable to the DCCT. us Billy Lizama MD LAB BLOOD ORDERABLES Final Result [facility] [address] [place] [address] from Last 3 Months or Most Recently Relevant to Health Maintenance Insurance [employer] Care Teams Plans Examiner Relationship Specialty Start Date End Date Yo Staples MD [address] [place], [place] [address] PCP - General Internal Medicine 07/02/24
--- OUTSIDE RECORDS SUMMARY | 2025-04-09 09:29 | XMS_ITS | Encounter Summary ---
Author Organization [facility] Address [address] [place] [address] Care Team Providers Care Group Leader Semiconductor Testing Name Role Phone Yo Staples MD Primary Care Provider [phone] Reason for Referral * Consultation (Routine) - Closed Specialty Diagnoses / Procedures Referred By Contac t Referred To Contact Cardiology Diagnoses Dyspnea on exertion Yo Staples MD [address] [facility] [address] [address] [facility] [address] [place] [address] Phone: tel: fax: Referral ID Status Reason Start Date Expiration Date V isits Requested Visits Authorized [id number] Closed Specialty Services Required 06/18/2024 12/18/2025 1 1 Encounter Details Date Type Department Care Team (Late st Contact Info) Description 06/18/2024 [facility] [address] [place] [address] oY Staples MD [address] [place] [address] [address] [place] [address] Dyspnea on exertion (Primary Dx) Social History Tobacco Use Types Packs/Day Years Used Date Smoking Tobacco: Never Assessed Sex and Gender Information Value Date Recorded Sex Assigned at Not on file Legal Sex Male 12:45 PM EDT Gender Identity Not on file Sexual Orientation Not on file documented as of this encounter Plan of Treatment Scheduled Referrals Name Type Priority Associated Diagnoses Order Schedule Ambulatory referral to Cardiology Outpatient Referral Routine Dyspnea on exertion Ordered: 06/18/2024 documented as of this encounter Visit Diagnoses Diagnosis Dyspnea on exertion- Primary Other dyspnea and respiratory abnormality documented in this encounter Care Teams Group Leader Semiconductor Testing Relationship Specialty Start Date End Date Yo Staples MD [address] [place] [address] PCP - General Internal Medicine 07/02/24 documented as of this encounter
--- OUTSIDE RECORDS SUMMARY | 2025-04-09 09:29 | XMS_ITS | Clinical Summary ---
Author Organization [facility] Address [address] [place] [address] Care Team Providers Care Incident Response Specialist Name Role Phone Unavailable Primary Care Provider Unavailabl e Allergies Active Allergy Reactions Criticality Noted Date Comments Aspirin 08/26/2013 bleeding Clindamycin/Lincomycin 08/26/2013 c dif Levofloxacin Itching,Rash Low 07/01/2015 Penicillins Anaphylaxis High 08/26/2013 Simvastatin Other (See Comments) 07/01/2015 Medications vitamin D (ERGOCALCIFEROL ) 1.25 MG (60121 UT) CAPS capsule Take 50,000 Units by mouth once a week Active pitavastatin (LIVALO) 4 MG TABS tablet Take by mouth nightly Active losartan (COZAAR) 100 MG tablet Take 100 mg by mouth daily Active sildenafil (VIAGRA) 100 MG tablet Take 100 mg by mouth as needed for Erectile Dysfunction Active HYDROMORPHONE, PAIN PUMP REFILL CHARGE, Activ e Active Problems Problem Noted Date Diagnosed Date Lumbar stenosis with neurogenic claudication Left shoulder pain 03/01/2015 Family History Relation Name Status Comments Brother 1 Alive Brother 2 Alive Father Mother Alive Sister 1 Alive Sister 2 Alive Social History Tobacco Use Types Packs/Day Years Used Date Smoking Tobacco: Former Cigarettes 2 15 0 10/16/1981 - 10/16/1996 Smokeless Tobacco: Former Quit: 09/30/2018 Alcohol Use Standard Drinks/Week Comments Yes 6 (1 standard drink = 0.6 oz pur e alcohol) Sex and Gender Information Value Date Recorded Sex Assigned at Not on file Legal Sex Male 10:51 PM EST Gender Identity Not on file Sexual Orientation Not on file Last Filed Vital Signs Vital Sign Reading Time Taken Comments Blood Pressure 121/86 10/25/2019 11:05 AM EST Pulse 86 10/25/2019 11:05 AM EST Temperature 36.6 C (97.9 F) 10/25/2019 11:05 AM EST Respiratory Rate 16 10/25/2019 11:05 AM EST Oxygen Saturation 92% 10/25/2019 11:05 AM EST Inhaled Oxygen Concentration - - Weight 98.9 kg (218 lb) 10/21/2019 6:54 AM EST Height 172.7 cm (5' 8 ) 10/21/2019 6:54 AM EST Body Mass Index 33.15 10/21/2019 6:54 AM EST Plan of Treatment Not on file Medical Devices Implanted Type Area Road Train Driver Device Identifier Shelf Expiration Date Model / Serial / Lot Paste Orthoblend Dbm Small 10cc - [id number] Implanted:Qty: 1 on 10/21/2019 by Zaid Stephen MD at [facility] Bone/[place] t/Tissue/ Human/Syn th Left: Spine Lumbar [employer]-PMM 06/21/2021 [id number] / [id number] / Oral-Graft Infuse Kt Sm Implanted:Qty: 1 on 10/21/2019 by Zaid Stephen MD at [facility] Spine Left: Spine Lumbar [employer]-PMM 05/30/2021 [id number] / / [id number] Screw Viper Prime 6x45mm Implanted:Qty: 4 on 10/21/2019 by Zaid Stephen MD at [facility] Spine Left: Spine Lumbar JNJ: DEPUY ORTHOPAEDICS-PM M [id number] / / Screw Spine Sing Innr Set Giulia Implanted:Qty: 4 on 10/21/2019 by Zaid Stephen MD at [facility] Spine Left: Spine Lumbar JNJ: DEPUY ORTHOPAEDICS-PM M [id number] / / Impl Norman Spine Lordotic 45mm Implanted:Qty: 2 on 10/21/2019 by Zaid Stephen MD at [facility] Spine Left: Spine Lumbar JNJ: DEPUY ORTHOPAEDICS-PM M [id number] / / Impl Cage Spine Cresent [id number] Implanted:Qty: 1 on 10/21/2019 by Zaid Stephen MD at [facility] Left: Spine Lumbar [employer]-PMM 07/15/2027 [id number] / [id number] Insurance [facility] [address] [place] [address] [facility] [address] [place] [address] Advance Directives * Full Code (Latest Code Status on File) Date Activated Date Inactivated Comments 10/21/2019 5:15 PM 10/25/2019 2:38 PM
--- OUTSIDE RECORDS SUMMARY | 2025-04-09 09:29 | XMS_ITS | Clinical Summary ---
Author Organization [facility] Address [address] [place] [id number] Phone Care Team Providers Care Repulping Supervisor Name Role Phone Rojas Tony MD Primary Care Provider [phone] Allergies Active Allergy Reactions Criticality Noted Date Comments Clindamycin 07/18/2015 Penicillins 07/18/2015 Medications pantoprazole (PROTONIX) 40 mg TAKE ONE TABLET BY MOUTH DAILY 30 Tab 0 04/13/2012 Active zolpidem (AMBIEN) 10 mg Oral Tablet Take 10 mg by mouth nightly. Active methocarbamol (ROBAXIN) 750 mg Oral Tablet Take 750 mg by mouth 2 times daily as needed (X2wks). Active traMADol (ULTRAM) 50 mg Oral Tablet 1-2 Tabs PO QID as needed. 240 Tab 0 07/20/2015 Active diclofenac-misop rostol (ARTHROTEC 75) 75-200 mg-mcg Oral Tab,IR & Delay Rel,Multiphasic TAKE 1 TABLET BY MOUTH TWICE DAILY 180 Tab 0 07/20/2015 Active Active Problems Problem Noted Date Diagnosed Date Sprain of left rotator cuff capsule 08/19/2015 Overview (08/19/2015): [facility] Facet capsulitis L4-5 08/19/2015 Overview (08/19/2015): [facility]: Cervical disc displacement: C4-5, C5-6 5 Overview (08/19/2015): [facility] Lumbar spinal stenosis: foraminal L4-5 5 Overview (08/19/2015): [facility]: Rotator cuff syndrome - Left shoulder tear 08/19 Overview (08/19/2015): [facility]: [id number] 08/11/2015 Overview (08/11/2015): [facility] Status Sheet [facility] Claim #: [id number] DOI: 12/01/2014 POR: AOR: Lam AnnMarlon MCO: [place] Comp Allowed Diagnosis: S43.92XA, S46.912A Sprain, sholder/arm nos [id number], S39.012A Sprain sacroiliac, lumbosacral strain S13.4XXA, S16.1XXA Sprain of neck, cervical strain S33.5XXA, S39.012A Sprain lumbar region, lumbar strain S83.92XA Sprain of knee & leg nos S83.282A Tear lat menis knee-cur Disallowed: Dismissed: S43.422A Rotator cuff tear Pending: Hearing scheduled 07-27-15 @ 11:00am for additional allowances: M46.00 facet capsulitis at L4-L5 M75.100 rotator cuff tear at left shoulder M50.20 disc displacement at C5-C6 M50.20 herniated disc at C4-C5 And substantial aggravation of pre-existing condition: M48.06 foraminal stenosis at Alleged: M75.100 Unsp rotator-cuff tear/ruptr of unsp shoulder, not trauma Alleged: M75.40 Impingement syndrome of unspecified shoulder Strain of left shoulder 07/20/2015 Overview (07/20/2015): [facility]: Cervical sprain 07/20/2015 Overview (07/20/2015): [facility]: Lumbar strain 07/20/2015 Overview (07/20/2015): [facility]: Overweight 10/29/2011 Body mass index 29.0-29.9, adult 10/29/2011 Bariatric surgery status 10/29/2011 Overview (10/29/2011): Band Obstructive sleep apnea (adult) (pediatric) 10/02 Surgical History Surgery Date Site/Laterality Comments CERVICAL DISCECTOMY anterior fusion C6-7 SHOULDER SURGERY Right KNEE SURGERY Left PROSTATE SURGERY cancer Medical History Medical History Date Comments Hyperlipemia Hx-TIA (transient ischemic attack) Insomnia Microscopic hematuria Hypertension Sleep apnea Stenosis, cervical spine Depression Prostatic hypertrophy Social History Tobacco Use Types Packs/Day Years Used Date Smoking Tobacco: Never Smokeless Tobacco: Never Alcohol Use Standard Drinks/Week Comments Not Asked 0 (1 standard drink = 0.6 oz pur e alcohol) Sex and Gender Information Value Date Recorded Sex Assigned at Not on file Legal Sex Male 8:45 PM EDT Gender Identity Not on file Sexual Orientation Not on file Obstetrics History Plan of Treatment Health Maintenance Due Date Last Done Comments Annual Wellness Exam 1965 Hepatitis C Screening 1980 DTaP/TDaP/Td (1 - Tdap) 1981 Cologuard 2007 Colon Cancer Screening 2007 Colonoscopy 2007 FIT 2007 Sigmoidoscopy 2007 Virtual Colonography 2007 Pneumococcal Vaccine 50+ (1 of 1 - PCV) 2012 Zoster (1 of 2) 2012 COVID-19 Vaccine ( - 2023-2 5 season) 2024 Influenza Vaccine (#1) 2025 Hepatitis B Vaccine Aged Out No longe r eligible based on patient's age to complete this topic Meningococcal B Vaccine Aged Out No l onger eligible based on patient's age to complete this topic Insurance PLUS ATTN: [employer] [place] [id number] Care Teams Repulping Supervisor Relationship Specialty Start Date End Date Rojas Tony MD PCP - General Internal Medicine 08/06/13
--- OUTSIDE RECORDS SUMMARY | 2025-04-09 09:29 | XMS_ITS | Encounter Summary ---
Author Organization [facility] Address [address] [place] [address] Care Team Providers Care Ophthalmic Tech Name Role Phone Yo Staples MD Primary Care Provider [phone] Encounter Details Date Type Department Care Team (Latest Contact Info) Description 06/12/2024 Community [facility] [address] [place] [address] Yo Staples MD [address] [place] [id number] Cardiomegaly (Primary Dx) Social History Tobacco Use Types Packs/Day Years Used Date Smoking Tobacco: Never Assessed Sex and Gender Information Value Date Recorded Sex Assigned at Not on file Legal Sex Male 12:45 PM EDT Gender Identity Not on file Sexual Orientation Not on file documented as of this encounter Plan of Treatment Not on file documented as of this encounter Visit Diagnoses Diagnosis Cardiomegaly- Primary documented in this encounter Care Teams Ophthalmic Tech Relationship Specialty Start Date End Date Yo Staples MD [address] [place] [id number] PCP - General Internal Medicine 07/02/24 documented as of this encounter
--- OUTSIDE RECORDS SUMMARY | 2025-04-09 09:29 | XMS_ITS | Data Portability ---
Author Organization [facility] ADMIN Address [address] [place] [id number] Assessment No assessment recorded. Plan of Treatment Reminders Order Date Submit Date Provider Last Modified By Organization Details Last Modified Time Details Appointments None recorded. Lab urinalysis , dipstick 2022 023 [email or web address] [facility], [address] [place] [address], [address], [address], 12:16:45 Referral None recorded. Procedures None recorded. Surgeries None recorded. Imaging None recorded. Medication Orders None recorded. Patient TargetsNo targets recorded. Patient InstructionsNo instructions recorded. Reason for Referral None Reported. Results Created Date Observation Date Name Description Value Unit Range Abnormal Flag Note LastModifiedBy Organization Detail LastModifiedTime 01/16/2001/15/2023 urina lysis , dipst ick Leukocytes (reference range) negati ve Not Available [address] [place] [address], [address], 01/15/2023 11:27:00 01/16/20 23 01/15/2023 urina lysis , dipst ick Nitrite (reference range:) negati ve Not Available [address], [place], [address], 01/15/2023 11:27:00 01/16/20 23 01/15/2023 urina lysis , dipst ick Urobilinogen (reference range) 0.2 Not Available [facility] [address] [place] [address] [address], [place], [address], 01/15/2023 11:27:00 01/16/20 23 01/15/2023 urina lysis , dipst ick Protein (reference range) negati ve Not Available [facility], [place], [address], 01/15/2023 11:27:00 01/16/20 23 01/15/2023 urina lysis , dipst ick pH (reference range 5-8.5) 5.0 Not Available [facility] [address] [place] [address] [address], [place], [address], 01/15/2023 11:27:00 01/16/20 23 01/15/2023 urina lysis , dipst ick Blood (reference range:) negati ve Not Available [address], [place], [address], 01/15/2023 11:27:00 01/16/20 23 01/15/2023 urina lysis , dipst ick Specific [place] (reference range) 1.015 Not Available [facility] [address], [place], [address], 01/15/2023 11:27:00 01/16/20 23 01/15/2023 urina lysis , dipst ick Ketone (reference range) negati ve Not Available [facility] [address] [place] [address] [address], [place], [address], 01/15/2023 11:27:00 01/16/20 23 01/15/2023 urina lysis , dipst ick Bilirubin (reference range) negati ve Not Available [address], [place], [address], 01/15/2023 11:27:00 01/16/20 23 01/15/2023 urina lysis , dipst ick Glucose (reference range) negati ve Not Available [facility] [address], [place], [address], 01/15/2023 11:27:00 01/16/2001/15/2023 urina lysis , dipst ick Color (reference range: yellow-brown ) Yellow Not Available [facility] [address], [place], [address], 01/15/2023 11:27:00 Result Notes None recorded. Medical [...] Not Available Not Available Not Available Hypodermic [place] 23 gauge x 1 USE DIRECTED TO [...] Available No t Available BD Regular Bevel [place] 22 gauge x 1 USE DIRECTED TO [...] index (BMI) Body weight Body temperature Systolic And Diastolic Provider Name and Address Organization Details Last Updated DateTime 01/15/2023 172.72 cm 30.4 kg/m2 67397.4 7 g 98 [degF] 130/72 mm[Hg] Keesha Xiao [facility] & [place] 3 11:21:37 Social History None recorded. Functional Status None recorded. Mental Status None recorded. Family History Nothing Reported. Medical History No medical history recorded. Past Encounters Encounter ID Performer Location Encounter Start Date Encounter Closed Date Diagnosis/Indication Diagnosis SNOMED-CT Code Diagnosis ICD10 Code Diagnosis Note [id number] Rhoda Calvert NP, [facility] [address] [place] [address] 01/15/2023 10:35:22 01/15/2023 11:35:07 History of malignant neoplasm of prostate 102610521 Z85.[address] Solitario office to get PSA resultsRTC in 1 year for f/u Nocturia 887514827 R35.1 Erectile dysfunction 860 460893 F52.21 Health Concerns Section Related Observation LastModified by Organization Detai ls LastModified Time None Recorded Concern Status LastModified by Organization Details LastModified Time None Recorded Advance Directives Directive None Recorded Payers Insurance Date Sequence Insurance Name Policy Number Policy Domínguez Covered Member ID Domínguez Member ID Guarantor Name 01/15/2023 1 [place] [id number] Luisa Kebede Skeens [id number] Luisa Kebede Skeens 08/30/2021 1 [place] [id number] Luisa Kebede Skeens [id number] Luisa Kebede Skeens 02/05/2025 1 [place] [id number] 1 Luisa Kebede Skeens [id number] Luisa Kebede Skeens 01/15/2023 1 [place] [id number] 2 Luisa Kebede Skeens [id number] Luisa Dexters Notes Date Note Type Note Provider Name and Address Organization Details Recorded Time 01/15/2023 text/html 60yowm RTC for annual f/u of h/o CAP. Pt was last seen on 08/30/2021. Pt underwent RRP on 05/13/[address] Herrera in [place]. Reports Dr Jeffries did PSA in Oct 2022, states was undectable. States urinary stream is good. Nocturia x2. Denies any dysuria, gross hematuria, wt loss, or bone pain. Pt is on Cialis 5mg daily r/t ED. Reports the medication is effective without any overt SEs. Pt is on Testosterone injections 1cc every other week overseen by Dr Jeffries. Rhoda Calvert, [employer], [address] [facility], [place], [address], [facility] [place] & [place] 01/15/2023 11:36:03
--- NOTE | 2025-04-09 10:00 | US_ITS ---
FINAL REPORT CLINICAL HISTORY: Enlarged right epididymis COMPARISON: 01/05/2025 FINDINGS: SCROTAL ULTRASOUND FINDINGS: Testes remain homogeneous with normal flow. The bilateral epididymi are enlarged, slightly worse, with hypervascularity on Doppler images. There is no discrete mass. Findings may reflect chronic epididymitis. No hydroceles. IMPRESSION: Mild further enlargement of the epididymi with hypervascularity suggesting chronic epididymitis. Reviewed, Interpreted and Dictated by Brittney Hoff MD Transcribed by Carol Berger Authenticated and [facility]
== END 2025-04-09 23:59 | disposition home or self-care (01) ==
LOC: RAD 09:27
PROVIDERS: PCP Internal Medicine Adolescent Medicine; Visit Provider Urology
DX: N45.1 Epididymitis (principal); R93.89 Abnormal findings on diagnostic imaging of other specified body structures
CPT/HCPCS: 76870

== ENCOUNTER 2025-04-15 08:43 | Day surgery (SDC) | payer BC, SELFPAY ==
[2025-04-15 08:55] VITALS: BP 118/80; PULSE 66; RESP 18; O2SAT 97; BMI 31.3
--- NOTE | 2025-04-15 08:57 | EXP.PM.HP ---
History of Present Illness *Admission Date: 04/15/25 *Reason for visit:: Intrathecal refill; DDD *History of present illness: Same [facility] Disclaimer: The information contained in this section may have been updated after the patient was seen, as this information can be updated by other users. Medical History Prostate cancer Stroke Surgical History H/O knee surgery 3 ON LEFT 2 ON RIGHT History of left knee replacement H/O neck surgery X2 History of prostatectomy 2013, Dr. 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 current occupational exposures/hazards: No caffeine: Yes Have you lived/traveled outside US in past 30 days?: No Contact w/someone who lives/traveled outside US past 30 days?: No Exposure to someone with infectious disease in past 14 days?: No Do you have a fever (greater than 100.4 F or 38 C)?: No Have you tested positive for COVID-19?: No Exposed to someone with COVID-19 in past 14 days?: No Do you have a sore throat?: No Do you have a cough?: No Do you have any weakness?: No Do you have any diarrhea?: No Are you experiencing any unusual bleeding?: No Do you have any muscle aches/pain?: No Do you have any abdominal pain?: No Are you experiencing loss of taste or smell?: No Other Medical History Have you received the Flu Vaccine for this season: No Have you received the Pneumonia Vaccine: Yes Review of Systems Review of Systems Review of systems:: pertinent systems reviewed and negative unless documented below Review of systems (narrative): Review of Systems: General: No recent weight changes, no fever, no sleep disturbances Respiratory: No cough, no shortness of air, no recurring pulmonary infections Cardiovascular/peripheral vascular: No chest pain, no palpitations, no edema, no shortness of breath Gastrointestinal: No new onset incontinence, normal bowel movements reported Genitourinary: No new onset incontinence Musculoskeletal: Chronic back pain Psychiatric: [Normal mood/affect] Neurological: [Denies weakness in extremities], [denies balance issues] Meds Home Medications and Allergies Home Medications ?Medication ?Instructions ?Recorded ?Confirmed ?Type pitavastatin calcium 2 mg tablet 2 mg PO DAILY Hypertension 09/05/20 04/12/25 History hydromorphone (PF) 2 mg/mL 0.12 mg IV CONT PRN chronic pain 01/02/21 04/12/25 History injection syringe rosuvastatin 5 mg tablet 5 mg PO DAILY 02/12/24 04/12/25 History hydrochlorothiazide 25 mg tablet 50 mg PO DAILY blood pressure 09/17/24 04/12/25 History celecoxib 200 mg capsule 200 mg PO DAILY 12/28/24 04/12/25 History escitalopram oxalate 10 mg tablet 10 mg PO DAILY 12/28/24 04/12/25 History tadalafil 5 mg tablet (Cialis) 5 mg PO DAILY 90 days #90 tabs 04/12/25 04/12/25 Rx New Prescriptions to Start Prescriptions: Allergies Allergy/AdvReac Type Severity Reaction Status Date / Time clindamycin (CLINDAMYCIN) Allergy Severe Anaphylaxis Verified 04/12/25 12:55 Penicillins (PENICILLINS) Allergy Severe S-ANAPHYLAX Verified 04/12/25 12:55 IS doxycycline Allergy Mild Vomiting Verified 04/12/25 12:55 aspirin (ASPIRIN) Allergy Unknown BLEEDING/BR Verified 04/12/25 12:55 UISING Exam Constitutional Constitutional: no acute distress *Routine HEENT Exam Head: Present normocephalic and atraumatic Eye: Present PERRL ENT: Present mucous membranes moist *Routine Neck Exam Neck: Present supple *Routine Respiratory Exam Respiratory: Present CTA bilaterally *Routine Cardiovascular Exam Cardiovascular: Present RRR *Routine Abdominal Exam Abdominal: Present soft *Routine Rectal Exam Rectal:: deferred *Routine Genitalia Exam Genitalia:: deferred Routine Back/Spine/Pelvis Exam Back/Spine: Present pain with flexion *Routine Skin Exam Skin: Present intact, dry and warm *Routine Neurological Exam Neurological: Present alert and oriented X3 Routine Psychiatric Exam Psychiatric: Present normal affect and normal thought process Assessment and Plan *Assessment and plan (1) Degenerative disc disease, lumbar: Status: Acute Category: Medical Code(s): M51.369 - Other intervertebral disc degeneration, lumbar region without mention of lumbar back pain or lower extremity pain Plan Patient has been instructed to contact the clinic with any concerns before the next appointment. Dr. Boyle has reviewed this note and agrees with this plan of care. This note was dictated using voice recognition software and make contain errors or omissions. All injections are used with Lidocaine, Bupivacaine and dexamethasone. Occasionally urine drug screen is needed to verify patient's compliance with our office pain contract. This is ordered based off specific treatments related to chronic pain with the potential to abuse certain medications.
--- NOTE | 2025-04-15 08:59 | EXP.PAIN.PRO ---
Procedure Date: 04/15/25 Time: 09:22 Anesthesiologist:: Kiley Moralez APRN Complications:: None Pre-procedure Diagnosis:: Degenerative disc disease of lumbar spine with lumbar radiculopathy symptoms, chronic pain syndrome Post-procedure Diagnosis:: Same Indications for Procedure:: Patient is a pleasant 64-year-old male who presents today for intrathecal refill and reprogram. Today he rates his pain a 4 out of 10. He denies any new falls or injuries. He does state that he would like to go back to the periodic flow that he felt like this was the best option for him. Patient is currently managed with Dilaudid 7.5 mg/mL with a daily dose of 2.5 mg/day.He denies any side effects. His Fazal has been reviewed and is appropriate. Physical Exam: General: Alert and oriented x3, no acute distress, pleasant and cooperative Lungs: Respirations even and unlabored, symmetrical chest expansion Eyes: PERRL Musculoskeletal: Flexion and extension of lumbar [spine] somewhat guarded secondary to pain, [antalgic gait noted] Neurological: Speech clear, no gross sensory deficit Procedure Details:: Informed consent was obtained and the risk and benefits of the procedure were explained to the patient. The patient had noninvasive monitoring placed including noninvasive blood pressure cuff and pulse oximeter. Patient's pump was interrogated. The area over the pump was cleansed with chlorhexidine as a cleansing solution. In sterile fashion the pump was accessed with a 22-gauge needle. Approximately 8 mls of the pump solution was removed and discarded appropriately. The pump was then refilled with 20 mL's of Dilaudid 7.5 mg/mL. The needle was withdrawn and a bandage was placed over the puncture site. The infusion rate was reprogrammed and changed to periodic flow with a daily dose of 2.7428 mg/day. The patient tolerated well with no complication. Plan and Disposition:: Patient tolerated the procedure well with no complications and was discharged neurologically intact. Patient was counseled if he has any problems with the periodic flow do not hesitate give us a phone call and that we can get him in for additional adjustment. Patient acknowledges understanding agrees with this plan of care. Patient will return to clinic on or before their next intrathecal refill date. We will see the patient back in the clinic at the next intrathecal refill. Patient has been instructed to contact the clinic with any concerns before the next appointment. Dr. Boyle has reviewed this note and agrees with this plan of care. This note was dictated using voice recognition software and make contain errors or omissions. -- It Is medically necessary for this patient to continue to have their intrathecal pump refilled at regular intervals. This patient had an intrathecal pain pump implanted after meeting criteria of chronic intractable pain for greater than 3 months and failing conservative treatments. Patient has committed and been compliant to the treatment plan and all planned follow up care. Since implantation of the intrathecal pain pump, the patient has had decreased pain and been more functional. Oral medications have been reduced including intake of oral opioids. Patient continues to do well with intrathecal therapy with decrease in pain symptoms and increase in functional status. Stopping intrathecal medications can lead to life threatening withdrawal, seizures, cardiac arrest, severe pain, and possible . Pumps that are not refilled at regular intervals can be damages and cause and need for replacement. We continually titrate dose and concentration to optimize pain relief and function. We are limited in concentration for certain drugs to safely deliver medications through the pump and stay within the recommendations from the Polyanalgesic Consensus Committee Guidelines. Depending on dose and concentration these pumps may need to be refilled sooner than 3 months as we titrate. A UDS is needed to verify patient's compliance with our office pain contract. This is ordered based off specific treatments related to chronic pain with the potential to abuse certain medications.
[2025-04-15 09:18] VITALS: BP 133/70; PULSE 61; RESP 18; O2SAT 97
[2025-04-15 09:43] VITALS: BP 107/68; PULSE 65; RESP 18; O2SAT 99
== END 2025-04-15 09:43 | disposition home or self-care (01) ==
PROVIDERS: PCP Internal Medicine Adolescent Medicine; Visit Provider Nurse Practitioner Family
DX: Z45.1 Encounter for adjustment and management of infusion pump (principal); M51.16 Intervertebral disc disorders with radiculopathy, lumbar region; G89.4 Chronic pain syndrome; I10 Essential (primary) hypertension; Z87.891 Personal history of nicotine dependence; Z79.899 Other long term (current) drug therapy; Z88.6 Allergy status to analgesic agent; Z88.1 Allergy status to other antibiotic agents; Z88.0 Allergy status to penicillin
CPT/HCPCS: 62370

== ENCOUNTER 2025-05-21 12:50 | Day surgery (SDC) | payer OTHER, BC, SELFPAY ==
[2025-05-21 13:10] VITALS: BP 134/75; PULSE 84; RESP 16; O2SAT 96; BMI 31.3
--- NOTE | 2025-05-21 13:12 | EXP.PM.HP ---
History of Present Illness *Admission Date: 05/21/25 *Reason for visit:: Intrathecal refill; DDD *History of present illness: Same [facility] Disclaimer: The information contained in this section may have been updated after the patient was seen, as this information can be updated by other users. Medical History Prostate cancer Stroke Surgical History H/O knee surgery 3 ON LEFT 2 ON RIGHT History of left knee replacement H/O neck surgery X2 History of prostatectomy 2013, Dr. 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 exposures/hazards: No caffeine: Yes Have you lived/traveled outside [place] in past 30 days?: No Contact w/someone who lives/traveled outside [place] past 30 days?: No Exposure to someone with infectious disease in past 14 days?: No Do you have a fever (greater than 100.4 F or 38 C)?: No Have you tested positive for COVID-19?: No Exposed to someone with COVID-19 in past 14 days?: No Do you have a sore throat?: No Do you have a cough?: No Do you have any weakness?: No Do you have any diarrhea?: No Are you experiencing any unusual bleeding?: No Do you have any muscle aches/pain?: No Do you have any abdominal pain?: No Are you experiencing loss of taste or smell?: No Other Medical History Have you received the Flu Vaccine for this season: No Have you received the Pneumonia Vaccine: Yes Meds Home Medications and Allergies Home Medications ?Medication ?Instructions ?Recorded ?Confirmed ?Type pitavastatin calcium 2 mg tablet 2 mg PO DAILY Hypertension 09/05/20 04/15/25 History hydromorphone (PF) 2 mg/mL 0.12 mg IV CONT PRN chronic pain 01/02/21 04/15/25 History injection syringe rosuvastatin 5 mg tablet 5 mg PO DAILY 02/12/24 04/15/25 History hydrochlorothiazide 25 mg tablet 50 mg PO DAILY blood pressure 09/17/24 04/15/25 History celecoxib 200 mg capsule 200 mg PO DAILY 12/28/24 04/15/25 History escitalopram oxalate 10 mg tablet 10 mg PO DAILY 12/28/24 04/15/25 History tadalafil 5 mg tablet (Cialis) 5 mg PO DAILY 90 days #90 tabs 04/12/25 04/15/25 Rx New Prescriptions to Start Prescriptions: Allergies Allergy/AdvReac Type Severity Reaction Status Date / Time clindamycin (CLINDAMYCIN) Allergy Severe Anaphylaxis Verified 04/12/25 12:55 Penicillins (PENICILLINS) Allergy Severe S-ANAPHYLAX Verified 04/12/25 12:55 IS doxycycline Allergy Mild Vomiting Verified 04/12/25 12:55 aspirin (ASPIRIN) Allergy Unknown BLEEDING/BR Verified 04/12/25 12:55 UISING Exam *Routine HEENT Exam Head: Present normocephalic and atraumatic Eye: Present PERRL ENT: Present mucous membranes moist *Routine Neck Exam Neck: Present supple *Routine Respiratory Exam Respiratory: Present CTA bilaterally *Routine Cardiovascular Exam Cardiovascular: Present RRR *Routine Abdominal Exam Abdominal: Present soft *Routine Rectal Exam Rectal:: deferred *Routine Genitalia Exam Genitalia:: deferred Routine Back/Spine/Pelvis Exam Back/Spine: Present pain with flexion *Routine Skin Exam Skin: Present intact and warm *Routine Neurological Exam Neurological: Present alert and oriented X3
--- NOTE | 2025-05-21 13:13 | P.PCN_ITS ---
Procedure Date: 05/21/25 Time: 13:21 Anesthesiologist:: Kiley Moralez APRN Complications:: None Pre-procedure Diagnosis:: Degenerative disc disease of lumbar spine with lumbar radiculopathy symptoms Post-procedure Diagnosis:: Same Indications for Procedure:: Patient is a pleasant 64-year-old male who presents today for intrathecal refill. He denies any new changes. He does state that the increase from our last visit and changing him to the flex dosing really did make a big difference. He does feel like the pump now covers more overall. He rates his pain a 3 out of 10. Patient is currently managed with Dilaudid 7.5 mg/mL with a daily dose of 2.7428 mg/day. He denies any side effects. His Fazal has been reviewed and is appropriate. Physical Exam: General: Alert and oriented x3, no acute distress, pleasant and cooperative Lungs: Respirations even and unlabored, symmetrical chest expansion Eyes: PERRL Musculoskeletal: Flexion and extension of lumbar [spine] somewhat guarded secondary to pain, [antalgic gait noted] Neurological: Speech clear, no gross sensory deficit Procedure Details:: Informed consent was obtained and the risk and benefits of the procedure were explained to the patient. The patient had noninvasive monitoring placed including noninvasive blood pressure cuff and pulse oximeter. Patient's pump was interrogated. The area over the pump was cleansed with chlorhexidine as a cleansing solution. In sterile fashion the pump was accessed with a 22-gauge needle. Approximately [6.5 mls of the pump solution was removed and discarded appropriately. The pump was then refilled with 20 mL's of Dilaudid 10 mg/mL. The needle was withdrawn and a bandage was placed over the puncture site. The infusion rate was reprogrammed and continued at its current dosage. The patient tolerated well with no complication. Plan and Disposition:: Patient tolerated the procedure well with no complications and was discharged neurologically intact. Patient was counseled that we are changing his concentration today and that there will be a bridge bolus from the time the old concentration makes it all the way through. Patient acknowledges understanding agrees with plan of care. Patient will return to clinic on or before their next intrathecal refill date. We will see the patient back in the clinic at the next intrathecal refill. Patient has been instructed to contact the clinic with any concerns before the next appointment. Dr. Boyle has reviewed this note and agrees with this plan of care. This note was dictated using voice recognition software and make contain errors or omissions. -- It Is medically necessary for this patient to continue to have their intrathecal pump refilled at regular intervals. This patient had an intrathecal pain pump implanted after meeting criteria of chronic intractable pain for greater than 3 months and failing conservative treatments. Patient has committed and been compliant to the treatment plan and all planned follow up care. Since implantation of the intrathecal pain pump, the patient has had decreased pain and been more functional. Oral medications have been reduced including intake of oral opioids. Patient continues to do well with intrathecal therapy with decrease in pain symptoms and increase in functional status. Stopping intrathecal medications can lead to life threatening withdrawal, seizures, ca rdiac arrest, severe pain, and possible . Pumps that are not refilled at regular intervals can be damages and cause and need for replacement. We continually titrate dose and concentration to optimize pain relief and function. We are limited in concentration for certain drugs to safely deliver medications through the pump and stay within the recommendations from the Polyanalges[employer] Consensus Committee Guidelines. Depending on dose and concentration these pumps may need to be refilled sooner than 3 months as we titrate. A UDS is needed to verify patient's compliance with our office pain contract. This is ordered based off specific treatments related to chronic pain with the potential to abuse certain medications.
[2025-05-21 13:15] VITALS: BP 124/71; PULSE 89; RESP 18; O2SAT 95
[2025-05-21 13:30] VITALS: BP 129/74; PULSE 76; RESP 16; O2SAT 96
== END 2025-05-21 13:30 | disposition home or self-care (01) ==
PROVIDERS: PCP Internal Medicine Adolescent Medicine; Visit Provider Nurse Practitioner Family
DX: Z45.1 Encounter for adjustment and management of infusion pump (principal); M51.16 Intervertebral disc disorders with radiculopathy, lumbar region; Z86.73 Personal history of transient ischemic attack (TIA), and cerebral infarction without residual deficits; Z85.46 Personal history of malignant neoplasm of prostate; Z87.891 Personal history of nicotine dependence; Z88.6 Allergy status to analgesic agent; Z88.1 Allergy status to other antibiotic agents; Z88.0 Allergy status to penicillin; Z88.8 Allergy status to other drugs, medicaments and biological substances; Z79.891 Long term (current) use of opiate analgesic; Z79.899 Other long term (current) drug therapy
CPT/HCPCS: 62370